=== PATIENT | female | born 1970 | race Caucasian/White ===

== ENCOUNTER → 2022-12-30 12:57 | Outpatient (BNVA) | payer OTHER, SELFPAY | PROVIDERS: PCP Internal Medicine; Visit Provider Nurse Practitioner Family | DX: Z13.89 Encounter for screening for other disorder (principal) ==

== ENCOUNTER 2023-04-06 09:42 | Outpatient (REF) | payer OTHER, SELFPAY ==
--- NOTE | ~2023-04-06 | XR_ITS ---
EXAMINATION: RIGHT HIP AND RIGHT KNEE CLINICAL INDICATIONS: Osteoarthritis. Pain. TECHNIQUE: Right knee 3 views. Right hip 2 views. FINDINGS: RIGHT HIP: The joint space is maintained normal. There are no bony erosive changes, loose bodies or enthesophytes. There is no fracture or dislocation. The soft tissues are normal. Surgical maria victoria are seen in the right pelvis with multiple phleboliths. The right iliac bone and right SI joint is normal. RIGHT KNEE: The tricompartment joint space is preserved. No visible acute fracture, dislocation or subluxation seen. The soft tissues are normal. XR/XR hip RT min 2V IMPRESSION: 1. Unremarkable right hip exam. 2. Unremarkable right knee exam.
--- NOTE | ~2023-04-06 | XR_ITS ---
EXAMINATION: RIGHT HIP AND RIGHT KNEE CLINICAL INDICATIONS: Osteoarthritis. Pain. TECHNIQUE: Right knee 3 views. Right hip 2 views. FINDINGS: RIGHT HIP: The joint space is maintained normal. There are no bony erosive changes, loose bodies or enthesophytes. There is no fracture or dislocation. The soft tissues are normal. Surgical maria victoria are seen in the right pelvis with multiple phleboliths. The right iliac bone and right SI joint is normal. RIGHT KNEE: The tricompartment joint space is preserved. No visible acute fracture, dislocation or subluxation seen. The soft tissues are normal. XR/XR knee RT 3V IMPRESSION: 1. Unremarkable right hip exam. 2. Unremarkable right knee exam.
== END 2023-04-06 09:43 | disposition home or self-care (01) ==
LOC: HO.XRAY 09:42
PROVIDERS: Visit Provider Psychiatry & Neurology Neurology
DX: M19.90 Unspecified osteoarthritis, unspecified site (principal)
CPT/HCPCS: 73502; 73562

== ENCOUNTER 2023-06-11 13:59 | Outpatient (AMB) | payer OTHER, SELFPAY ==
--- NOTE | 2023-06-11 14:00 | A.OFFVIS_ITS ---
Intake Intake Visit Reasons: 4 mnts f/u tele to #[phone] Intake Note: PT presents as a telehealth visit. Pt states she is having issues with her lower back, upcoming MRI and some other situations in regards to that. Pt states she was having problems with her right hip. Security Project Manager Required: No Allergies methylphenidate Allergy (Intermediate, Verified 06/11/23 14:02) Migraine escitalopram [From Lexapro] Allergy (Mild, Verified 06/11/23 14:02) Irritable benzonatate Allergy (Unknown, Verified 06/11/23 14:02) Unknown carisoprodol [Soma] Allergy (Unknown, Verified 06/11/23 14:02) Unknown celecoxib [Celebrex] Allergy (Unknown, Verified 06/11/23 14:02) Unknown codeine Allergy (Unknown, Verified 06/11/23 14:02) Unknown hydroxyzine Allergy (Unknown, Verified 06/11/23 14:02) Unknown lamotrigine [Lamictal] Allergy (Unknown, Verified 06/11/23 14:02) Unknown milnacipran [Savella] Allergy (Unknown, Verified 06/11/23 14:02) Unknown naproxen [Naprosyn] Allergy (Unknown, Verified 06/11/23 14:02) Unknown pregabalin Allergy (Unknown, Verified 06/11/23 14:02) Unknown rizatriptan [Maxalt] Allergy (Unknown, Verified 06/11/23 14:02) Unknown Sulfa (Sulfonamide Antibiotics) Allergy (Unknown, Verified 06/11/23 14:02) Unknown sulfacetamide Allergy (Unknown, Verified 06/11/23 14:02) Unknown tetracycline Allergy (Unknown, Verified 06/11/23 14:02) Unknown tramadol Allergy (Unknown, Verified 06/11/23 14:02) Unknown amitriptyline Allergy (Verified 06/11/23 14:02) Unknown environmental allergies Allergy (Verified 06/11/23 14:32) Unknown ibuprofen Allergy (Verified 06/11/23 14:02) Unknown latex Allergy (Verified 06/11/23 14:02) Unknown lavender (Lavandula angustifolia) Allergy (Verified 06/11/23 14:32) Unknown NSAIDS (Non-Steroidal Anti-Inflamma Allergy (Verified 06/11/23 14:02) Unknown Erythromycin Allergy (Unknown, Uncoded 06/11/23 14:02) Unknown Wellbutrin Allergy (Unknown, Uncoded 06/11/23 14:02) Unknown Medication List - Last Reconciled 06/11/23 by DOMINGUEZ Morales albuterol sulfate 90 mcg/actuation (ProAir RespiClick) 2 inhalations inhalation Q4-6H PRN atomoxetine (Strattera) 40 mg PO QAM atomoxetine mg PO cholecalciferol (vitamin D3) 250 mcg PO DAILY cyclobenzaprine 5 mg PO TID PRN 30 days fexofenadine (Amanda Allergy) 180 mg PO Q24H fluticasone propion-salmeterol 100-50 mcg/dose (Wixela Inhub) 1 inh inhalation BID glucosamine YIr-ocu-[id number] 400-200-333 mg 1 tab orally; give with meal/snack imiquimod 5% topical pantoprazole 40 mg PO DAILY rimegepant (Nurtec ODT) 75 mg PO Q OTHER DAY PRN 30 days trazodone 50 mg PO BEDTIME vortioxetine (Trintellix) 10 mg PO DAILY HPI HPI Comments History of Present Illness Details 52-yr-old female presents for f/u televisit. Attempted to do facetime visit x's 4 however connection feeled each time. Pt denies any significant interval medical changes. She reports her migraines are well-controlled on current regimen. She is having 2-3 headaches days per week, but rarely having a severe headache. Nurtec remains effective. Pt reports that the cyclobenzaprine as well as glucosamine-chondroitan has helped the low back pain., allows her to sleep better as the hip is not as bothersome. She does continue to have dyas were she has pain moving from the right callf up into the right hip and low back. She cannot describe the pain well- more achey. Some stabbing in the pain in the right hip when standing on it. She notes the RLE can feel weak at times- sometimes r/t pain but other times feels weak. The RLE can feel a bit numb She has a remote h/o bladder sling- can have episodes of RLQ intese pain- can alst 10 min- now happens q 2-3 yrs. She also notes that when she swallows very cold drinks- she has throat and stomach discomfort. Today she notes her mother has this as wel. She notes her father has recently been started on medications for AD/dementia- as her father has just started to have cognitive difficulties in his early 80s. She notes she has strong family h/o dementia/AD on mother side and fathers side. She also notes that many yrs ago she had an EEG which showed cortical irritability- was told not seizures but to avoid strobe lights. [facility] Medical History Arrhythmia Bruxism Cervicalgia Disorder of uterus Fibromyalgia GERD (gastroesophageal reflux disease) Migraine Myofascial pain syndrome Palpitations Plantar fasciitis Scoliosis Spasmodic torticollis Tendinitis TMJ dysfunction Vasovagal syncope Surgical History History of section History of uterine suspension procedure Hx of neck surgery Hx of tonsillectomy Family History Father Stroke HTN (hypertension) Migraine Dementia Mother HTN (hypertension) DM (diabetes mellitus) Spina bifida Neuropathy H/O fibromyalgia TMJ (dislocation of temporomandibular joint) Paternal Uncle Stroke Paternal Aunt Stroke Paternal Grandfather Stroke Social History (Updated 06/11/23 @ 14:06 by Regina Choi CMA) Household Members: Children Household Members Other:: adult Alcohol intake: current Alcohol intake frequency: does not drink Patient Tobacco Use Status: Former Tobacco user Quit Date: 2010 Use of substances other than those prescribed or required for medical reasons: No Current occupational status: disabled Review of Systems Const All systems reviewed & are unremarkable except as noted in HPI and below Physical Exam Const General: cooperative and no acute distress Orientation/consciousness: patient oriented x3 Resp Effort & Inspection: normal respiratory effort and able to speak in complete sentences Neuro General: patient oriented x3 Cognition (Neuro): normal cognition Psych Mental Status: mental status grossly normal Attitude: cooperative Assessment & Plan Assessment & Plan (1) Muscle spasm: Code(s): M62.838 - Other muscle spasm (2) Paresthesia: Code(s): R20.2 - Paresthesia of skin (3) Migraine: Code(s): G43.909 - Migraine, unspecified, not intractable, without status migrainosus Plan For muscle spasms- Continue Cyclobenzaprine. Review MRI report when available. Future considerations- PT, pain management, neurosx consult. For migraine prevention: Monitor headaches- if increases, will consider changing Nurtec to qod for prevention or trialing Emgality- her dtr does well on this.. Previous migraine trials: Verapamil, Amitriptyline, Imitrex- which have not helped. Topiramate- caused tingling. 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 Preventive migraine tx contraindications: BBs d/t asthma dx. ? For acute migraine treatment: Continue Nurtec ODT 75mg 1 tab qod-qd prn onset of migraine. Previous acute migraine trials- triptans- d/t causes severe bothersome paresthesias. ? For cognitive dysfunction- Continue Strattera 40mg qam- psych med provider Lelo Castro at the [facility]. Neuro-psych eval was declined by [facility]- stating pt can be dx'd w/ ADD/ADHD by psych and that documentation states she is doing better on Strattera. ? For sleep- Trazodone prn- again managed by Lelo Castro. Cyclobenzaprine may help with sleep as well. For fa,benji h/o AD/dementia: Pt may benefit from using [employer] site for support tips. Clinicaltrial.gov to research current trials. f/u in 4 months or sooner prn Medications: Refilled cyclobenzaprine 5 mg PO TID 30 days PRN 60 tabs 3RF muscle spasm rimegepant (Nurtec ODT) 75 mg PO Q OTHER DAY 30 days PRN 15 tabs 6RF migraine headache Telehealth Telehealth Location of provider rendering services: practice address Location of patient: address on file Patient Identification confirmed using: Name, : Yes Telehealth method: voice only Patient verbally consented to treatment: Yes Patient verbally consented to billing insurance company: Yes Patient informed of any privacy concerns related to visit: Yes Minutes spent on Phone/Video with Pt.: 30 Coding Level of Care Code Tele Est Pt Level 4 (81569) Diagnoses Muscle spasm M62.838 Paresthesia R20.2 Migraine G43.909
== END 2023-06-11 16:00 ==
PROVIDERS: PCP Internal Medicine; Visit Provider Nurse Practitioner Family
DX: M62.838 Other muscle spasm (principal); R20.2 Paresthesia of skin; G43.909 Migraine, unspecified, not intractable, without status migrainosus
CPT/HCPCS: 99214

== ENCOUNTER → 2023-06-11 13:59 | Outpatient (BNVA) | payer OTHER, SELFPAY | PROVIDERS: PCP Internal Medicine; Visit Provider Nurse Practitioner Family ==

== ENCOUNTER 2023-06-12 13:08 | Outpatient (REF) | payer OTHER, SELFPAY ==
[2023-06-12 14:12] LABS: MANUAL DIFF FLAG NO
[2023-06-12 15:58] LABS: Basophils Absolute Auto 0.1 X10*3/uL (0.0-0.2); Eosinophils Absolute Auto 0.1 X10*3/uL (0.0-0.4); Eosinophils Percent Auto 1.7 % (0-4); Hematocrit 41.8 % (37.0-47.0); Hemoglobin 13.7 g/dl (12.0-16.0); Imm Gran Abs Auto 0.04 X10*3/uL (0.00-0.03); Imm Gran Pct Auto 0.7 % (0.0-0.4); Lymphocytes Absolute Auto 1.7 X10*3/uL (1.2-4.9); Lymphocytes Percent Auto 29.3 % (20-40); Mean Corpuscular HGB Conc 32.8 g/dl (31.0-35.0); Mean Corpuscular Hemoglobin 28.7 pg (27.0-33.0); Mean Corpuscular Volume 87.4 fL (80.0-98.0); Mean Platelet Volume 9.6 fL (9.4-12.3); Monocytes Absolute Auto 0.5 X10*3/uL (0.1-1.2); Monocytes Percent Auto 8.8 % (2-11); Neutrophils Absolute Auto 3.5 x10*3/uL (2.0-8.3); Neutrophils Percent Auto 58.5 % (45-73); Platelet Count 369 X10*3/uL (160-400); Red Blood Count 4.78 X10*6/uL (4.20-5.50); Red Cell Distribution Width 12.6 % (11.0-16.0); White Blood Count 5.9 X10*3/uL (4.8-10.8)
[2023-06-15 20:18] LABS: Immunoglobulin E 7 kU/L (<OR=114)
== END 2023-06-12 13:09 | disposition home or self-care (01) ==
LOC: HO.LAB 13:08
PROVIDERS: PCP Internal Medicine; Visit Provider Nurse Practitioner Family
DX: J45.909 Unspecified asthma, uncomplicated (principal); R06.09 Other forms of dyspnea; Z87.891 Personal history of nicotine dependence; Z79.899 Other long term (current) drug therapy
CPT/HCPCS: 36415; 82785; 85025; 86003; 99202

== ENCOUNTER 2023-06-12 13:08 | Outpatient (AMB) | payer OTHER, SELFPAY ==
[2023-06-12 13:15] VITALS: BP 126/72; PULSE 89; O2SAT 97; BMI 31.7
--- NOTE | 2023-06-12 13:15 | MHC.OFFVIS ---
Intake Vital Signs 06/12/23 13:15 Height 5 ft 8 in Weight 208 lb 5.389 oz BMI 31.7 BP 126/72 Blood Pressure Location Lt brachial Position Sitting Pulse 89 Pulse Source Pulse Oximeter Pulse Oximetry (%) 97 Oxygen Delivery Method Room Air Intake Visit Reasons: Asthma Salesforce Administrator Required: No Extractions Technician: Extractions Technician offered & declined Accompanied by: Self / Same As Patient Allergies methylphenidate Allergy (Intermediate, Verified 06/12/23 13:22) Migraine escitalopram [From Lexapro] Allergy (Mild, Verified 06/12/23 13:22) Irritable benzonatate Allergy (Unknown, Verified 06/12/23 13:22) Unknown carisoprodol [Soma] Allergy (Unknown, Verified 06/12/23 13:22) Unknown celecoxib [Celebrex] Allergy (Unknown, Verified 06/12/23 13:22) Unknown codeine Allergy (Unknown, Verified 06/12/23 13:22) Unknown hydroxyzine Allergy (Unknown, Verified 06/12/23 13:22) Unknown lamotrigine [Lamictal] Allergy (Unknown, Verified 06/12/23 13:22) Unknown milnacipran [Savella] Allergy (Unknown, Verified 06/12/23 13:22) Unknown naproxen [Naprosyn] Allergy (Unknown, Verified 06/12/23 13:22) Unknown pregabalin Allergy (Unknown, Verified 06/12/23 13:22) Unknown rizatriptan [Maxalt] Allergy (Unknown, Verified 06/12/23 13:22) Unknown Sulfa (Sulfonamide Antibiotics) Allergy (Unknown, Verified 06/12/23 13:22) Unknown sulfacetamide Allergy (Unknown, Verified 06/12/23 13:22) Unknown tetracycline Allergy (Unknown, Verified 06/12/23 13:22) Unknown tramadol Allergy (Unknown, Verified 06/12/23 13:22) Unknown amitriptyline Allergy (Verified 06/12/23 13:22) Unknown environmental allergies Allergy (Verified 06/12/23 13:22) Unknown ibuprofen Allergy (Verified 06/12/23 13:22) Unknown latex Allergy (Verified 06/12/23 13:22) Unknown lavender (Lavandula angustifolia) Allergy (Verified 06/12/23 13:22) Unknown NSAIDS (Non-Steroidal Anti-Inflamma Allergy (Verified 06/12/23 13:22) Unknown adhesives Allergy (Intermediate, Uncoded 06/12/23 13:22) itchy rash Erythromycin Allergy (Unknown, Uncoded 06/12/23 13:22) Unknown Wellbutrin Allergy (Unknown, Uncoded 06/12/23 13:22) Unknown Medication List - Last Reconciled 06/12/23 by Brigida Schaffer LPN albuterol sulfate 90 mcg/actuation (ProAir RespiClick) 2 inhalations inhalation Q4-6H PRN atomoxetine (Strattera) 40 mg PO QAM atomoxetine mg PO cholecalciferol (vitamin D3) 250 mcg PO DAILY cyclobenzaprine 5 mg PO TID PRN 30 days fexofenadine (Amanda Allergy) 180 mg PO Q24H fluticasone propion-salmeterol 100-50 mcg/dose (Wixela Inhub) 1 inh inhalation BID glucosamine YFg-qkv-ciuimwjqux 400-200-333 mg 1 tab orally; give with meal/snack imiquimod 5% topical pantoprazole 40 mg PO DAILY rimegepant (Nurtec ODT) 75 mg PO Q OTHER DAY PRN 30 days trazodone 50 mg PO BEDTIME vortioxetine (Trintellix) 10 mg PO DAILY HPI Asthma HPI Details Cinthya is a pleasant 52 year old female, former smoker with 20 pack year history, quit 13 years ago with underlying history of asthma. She reports dyspnea with moderate exertion and chest tightness, with environmental allergens as triggers. She denies any wheezing or cough. She has been on Wixela 100/50 for quite some time and notes moderate control of symptoms. She reports using her albuterol up to 3 times per day. She has trialed advair diskus and HFA as well as Flovent with supoptimal relief. She notes her mother and children, all have asthma, otherwise no other lung conditions. She denies any hospitalizations or intubations related to asthma. She does have cats and 2 doves. She reports having birds for over 20 years. [facility] Medical History Arrhythmia Bruxism Cervicalgia Disorder of uterus Fibromyalgia GERD (gastroesophageal reflux disease) Migraine Myofascial pain syndrome Palpitations Plantar fasciitis Scoliosis Spasmodic torticollis Tendinitis TMJ dysfunction Vasovagal syncope Surgical History History of section History of uterine suspension procedure Hx of neck surgery Hx of tonsillectomy Family History Father Stroke HTN (hypertension) Migraine Dementia Mother HTN (hypertension) DM (diabetes mellitus) Spina bifida Neuropathy H/O fibromyalgia TMJ (dislocation of temporomandibular joint) Paternal Uncle Stroke Paternal Aunt Stroke Paternal Grandfather Stroke Social History (Updated 06/12/23 @ 13:26 by Brigida Schaffer LPN) Household Members: Children Household Members Other:: adult Alcohol intake: current Alcohol intake frequency: does not drink Patient Tobacco Use Status: Former Tobacco user Quit Date: 2010 Tobacco use type: Cigarette Cigarette Packs Per Day: 1 Cigarettes Per Day: 20 Years Smoked: approx 20 Current occupational status: disabled Review of Systems Const Denies chills, Denies excessive sweating, Denies fever(s), Denies headache(s) and Denies night sweats Eyes Denies dry eyes, Denies irritation and Denies itchy eyes ENT Reports Normal hearing present, Denies headache(s), Denies nasal congestion, Denies nasal discharge, Denies post nasal drip and Denies sore throat Card Denies chest pain, Denies chest pain at rest, Denies chest pain with activity, Denies claudication, Denies leg edema, Denies dyspnea, Denies orthopnea and Denies paroxysmal nocturnal dyspnea Resp Denies chest congestion, Denies cough, Denies excessive phlegm production, Denies pain on inspiration, Denies pain with cough, Denies dyspnea, Denies stridor and Denies wheezing Musc Denies myalgias Neuro Reports Normal hearing present and Denies headache(s) Endo Denies excessive sweating Tushar/Lymph Denies lymphadenopathy Aller/Immun Denies itchy eyes, Denies seasonal rhinorrhea and Denies wheezing Physical Exam Vital Signs: Last Vital Signs Pulse 89 06/12/23 13:15 BP 126/72 06/12/23 13:15 Pulse Ox 97 06/12/23 13:15 Oxygen Delivery Method Room Air 06/12/23 13:15 BMI result Body Mass Index 31.7 Const General: cooperative, healthy appearing, comfortable, no acute distress, well developed and alert Nutritional Appearance: obese Orientation/consciousness: patient oriented x3 Limitations: no limitations HEENT Head: Yes normal to inspection, Yes normocephalic and Yes atraumatic Ears: hearing grossly normal bilaterally and external ears normal Eyes General: appearance normal, both eyes and all related structures Eyelids: Yes eyelids normal Sclerae: sclerae normal EOM: EOMs intact bilaterally Neck Neck: Yes normal visual inspection and Yes no lymphadenopathy Lymphatic: no lymphadenopathy noted Chest Chest palpation & inspection: normal inspection of the chest Resp Effort & Inspection: normal respiratory effort, able to speak in complete sentences, no audible wheezes, no cough, no stridor, not tachypneic, no tripod positioning and no use of accessory muscles Auscultation: clear to auscultation bilaterally Cardio Jugular venous distension: no JVD Rate: regular rate Rhythm: regular rhythm Skin Other: warm, dry General skin exam: no rashes or lesions noted Neuro General: patient oriented x3 Cranial nerves: Yes Normal hearing present Cognition (Neuro): normal cognition Gait exam (Neuro): Normal gait present Extrem General: Yes normal to inspection, Yes capillary refill normal, Yes no clubbing, cyanosis or edema and Yes no pedal edema Psych Appearance: grossly normal and well kempt Speech and movement: Normal speech and movement present and Clear speech present Affect: normal affect Attitude: cooperative Thought process: Normal thought process present Thought content: Normal thought content present Insight: Good insight present (Psych) Judgement: Good judgement present (Psych) Assessment & Plan Assessment & Plan (1) Asthma: Code(s): J45.909 - Unspecified asthma, uncomplicated (2) Environmental and seasonal allergies: Code(s): J30.89 - Other allergic rhinitis (3) Personal history of tobacco use: Code(s): Z87.891 - Personal history of nicotine dependence Plan Cinthya was previously well controlled on Wixela but has had to use her albuterol more frequently. Will increase dose of Wixela, as she wanted to stay on this medication. Will send for PFT to [facility]. Given her smoking history and bird exposure, will send for chest CT and lab work. All questions were answered and patient is in agreement of plan. Will follow up after to review results and response to increased dose. Orders: Orders Rast Allergen Today J30.89 - Other allergic rhinitis Complete Blood Count Auto Diff Today J30.89 - Other allergic rhinitis, J45.909 - Unspecified asthma, uncomplicated Immunoglobulin E Today J30.89 - Other allergic rhinitis PFT pulmonary function test Today J45.909 - Unspecified asthma, uncomplicated CT chest wo IV con Today R06.09 - Other forms of dyspnea, Z87.891 - Personal history of nicotine dependence Medications: New fluticasone propion-salmeterol 250-50 mcg/dose (Wixela Inhub) 1 inh inhalation Q12H 60 ea 4RF Coding Level of Care Code New Pt Level 4 (19826) Diagnoses Asthma J45.909 Environmental and seasonal allergies J30.89 Personal history of tobacco use Z87.891
== END 2023-06-12 13:54 | disposition home or self-care (01) ==
PROVIDERS: PCP Internal Medicine; Referring Provider Internal Medicine; Visit Provider Nurse Practitioner Family
DX: J45.909 Unspecified asthma, uncomplicated (principal); Z87.891 Personal history of nicotine dependence
CPT/HCPCS: 99204

== ENCOUNTER 2023-06-30 13:16 | Outpatient (REF) | payer OTHER, SELFPAY ==
--- NOTE | 2023-06-30 14:06 | PFT_ITS ---
FLOWS: 1. FEV1 105% of predicted at 3.30 L. 2. FVC 101% of predicted at 4.01 L. 3. FEV1 to FVC ratio of 0.82. 4. No bronchodilator response in small to medium airways. LUNG VOLUMES: 1. Total lung capacity 100% of predicted at 4.66 L. 2. Residual volume 80% of predicted at 1.66 L. 3. Slow vital capacity 111% of predicted at 4.00 L. 4. Expiratory reserve volume 34% of predicted at 0.40 L. 5. Diffusion capacity is mildly reduced. IMPRESSION: No obstructive or restrictive ventilatory defect. No bronchodilator response except in small to medium airways. Decreased expiratory reserve volume suggests extrathoracic restriction, likely secondary to abdominal obesity. Decreased diffusion capacity suggests emphysema. Crescencio Tamez MD AP/MODL / [id number] MTDD
== END 2023-06-30 13:17 | disposition home or self-care (01) ==
LOC: HO.RESP 13:16
PROVIDERS: PCP Internal Medicine; Visit Provider Nurse Practitioner Family
DX: J45.909 Unspecified asthma, uncomplicated (principal)
CPT/HCPCS: 94010; 94727; 94729

== ENCOUNTER → 2023-06-30 14:06 | Outpatient (BNV) | payer OTHER, SELFPAY | PROVIDERS: PCP Internal Medicine; Visit Provider Internal Medicine Pulmonary Disease | DX: J45.909 Unspecified asthma, uncomplicated (principal) | CPT/HCPCS: 94060; 94727; 94729 ==

== ENCOUNTER 2023-07-07 14:18 | Outpatient (REF) | payer OTHER, SELFPAY ==
--- NOTE | ~2023-07-07 | MR_ITS ---
EXAMINATION: MR LUMBAR SPINE WITHOUT CONTRAST CLINICAL INFORMATION: 52-year-old with right L2-L3 radiculopathy. COMPARISON: None available. TECHNIQUE: MRI of the lumbar spine was obtained using routine sequences without contrast. FINDINGS: CORONAL ALIGNMENT: Mild upper lumbar dextrocurvature noted, slightly convex to the right at L1-L2. SAGITTAL ALIGNMENT: Normal. LUMBOSACRAL JUNCTION: Normal. There are 5 [id number] lumbar-type vertebral bodies. VERTEBRAL BODIES: Very slight chronic loss of height of the anterior portion of the superior endplate of T12 is noted. Otherwise vertebral body heights are well maintained. DISC SPACES AND ENDPLATES: Severe disc space height loss at L4-L5 and L5-S1 with disc desiccation, Schmorl's nodes and spondylosis at these levels and probable intradiscal vacuum disc phenomenon. Mild disc volume loss with disc desiccation at L2-L3 and minimal disc desiccation at L3-L4 and L1-L2 without significant disc space height loss or spondylosis. Mild disc space height loss, with disc desiccation and a Schmorl's node along the superior endplate of T12 with minor anterior marginal endplate spurring at T11-T12. SPINAL CANAL: No abnormal developmental findings. BONE MARROW: Mild type I degenerative marrow signal changes seen along the endplates asymmetric to the right at L4-L5 with type II marrow signal changes along the endplates at L4-L5 and L5-S1. A 1 cm benign vertebral hemangioma in the T12 vertebral body. CONUS MEDULLARIS: Terminates at L1-L2. Morphology and signal is normal. INTRADURAL NERVE ROOTS: Within normal limits. L5-S1: Posterolateral disc osteophyte complex noted left more than right with no significant spinal canal stenosis. Mild facet arthropathy noted right more than left. No significant neural foraminal stenosis. L4-L5: Disc osteophyte complex asymmetric to the right encroaching on the inferior right neural foramen and slightly flattening the dural sac asymmetric to the right with minor facet arthropathy bilaterally without significant central spinal canal stenosis. There is zeay-sp-sqznkgea narrowing of the right subarticular recess slightly encroaching on the traversing right L5 nerve root. Mild foraminal narrowing noted on the right without exiting neural impingement. L3-L4: Shallow broad-based central disc protrusion, with slight indentation of the ventral thecal sac with mild ligamentum flavum thickening and mild facet arthropathy bilaterally without significant canal or neural foraminal stenosis. L2-L3: Right-sided foraminal/extraforaminal disc protrusion with annular fissuring noted without neural impingement. Tiny left paramedian disc protrusion. Minor facet arthropathy on the right without significant canal or neural foraminal stenosis. L1-L2: Normal annular contour. No facet arthrosis, canal or neural foraminal stenosis. PARAVERTEBRAL AND INCLUDED EXTRASPINAL SOFT TISSUES: The paravertebral soft tissues appear grossly unremarkable. The visualized abdominal aorta is normal in caliber. There is a partially imaged 1 cm cystic structure arising from the lateral cortex of the lower pole of the left kidney which cannot be confirmed as simple-appearing on this examination. Correlate with renal ultrasound to exclude a mass. MR/MR lumbar spine wo con IMPRESSION: 1. Mild upper lumbar dextroscoliosis, slightly convex to the right at L1-L2. 2. Multilevel DDD and spondylosis, most apparent at L4-L5 and L5-S1 with disc osteophyte complex asymmetric to the right at L4-L5 with [id number]-gy-htrzdcmr narrowing of the right subarticular zone at this level slightly encroaching on the traversing right L5 nerve root. Small central disc protrusion at L3-L4 and a small right lateral extraforaminal/foraminal disc protrusion at L2-L3 without neural impingement. 3. Mild degrees of multilevel bilateral facet arthropathy without significant neural foraminal stenosis. 4. Slight chronic loss of height of the superior endplate of T12. 5. A 1 cm cystic structure arising from the lateral cortex of the lower pole of the left kidney which cannot be confirmed as simple-appearing on this examination. Recommend correlation with renal ultrasound to exclude a mass.
== END 2023-07-07 14:19 | disposition home or self-care (01) ==
LOC: HO.MRI 14:18
PROVIDERS: PCP Internal Medicine; Visit Provider Psychiatry & Neurology Neurology
DX: M54.16 Radiculopathy, lumbar region (principal)
CPT/HCPCS: 72148

== ENCOUNTER 2023-07-14 12:37 | Outpatient (AMB) | payer OTHER, SELFPAY ==
[2023-07-14 14:08] VITALS: BP 126/70; PULSE 86; O2SAT 99; BMI 31.5
--- NOTE | 2023-07-14 14:08 | MHC.OFFVIS ---
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 Accompanied by: Self / Same As Patient Allergies methylphenidate Allergy (Intermediate, Verified 07/14/23 14:13) Migraine escitalopram [From Lexapro] Allergy (Mild, Verified 07/14/23 14:13) Irritable benzonatate Allergy (Unknown, Verified 07/14/23 14:13) Unknown carisoprodol [Soma] Allergy (Unknown, Verified 07/14/23 14:13) Unknown celecoxib [Celebrex] Allergy (Unknown, Verified 07/14/23 14:13) Unknown codeine Allergy (Unknown, Verified 07/14/23 14:13) Unknown hydroxyzine Allergy (Unknown, Verified 07/14/23 14:13) Unknown lamotrigine [Lamictal] Allergy (Unknown, Verified 07/14/23 14:13) Unknown milnacipran [Savella] Allergy (Unknown, Verified 07/14/23 14:13) Unknown naproxen [Naprosyn] Allergy (Unknown, Verified 07/14/23 14:13) Unknown pregabalin Allergy (Unknown, Verified 07/14/23 14:13) Unknown rizatriptan [Maxalt] Allergy (Unknown, Verified 07/14/23 14:13) Unknown Sulfa (Sulfonamide Antibiotics) Allergy (Unknown, Verified 07/14/23 14:13) Unknown sulfacetamide Allergy (Unknown, Verified 07/14/23 14:13) Unknown tetracycline Allergy (Unknown, Verified 07/14/23 14:13) Unknown tramadol Allergy (Unknown, Verified 07/14/23 14:13) Unknown amitriptyline Allergy (Verified 07/14/23 14:13) Unknown environmental allergies Allergy (Verified 07/14/23 14:13) Unknown ibuprofen Allergy (Verified 07/14/23 14:13) Unknown latex Allergy (Verified 07/14/23 14:13) Unknown lavender (Lavandula angustifolia) Allergy (Verified 07/14/23 14:13) Unknown NSAIDS (Non-Steroidal Anti-Inflamma Allergy (Verified 07/14/23 14:13) Unknown adhesives Allergy (Intermediate, Uncoded 07/14/23 14:13) itchy rash Erythromycin Allergy (Unknown, Uncoded 07/14/23 14:13) Unknown Wellbutrin Allergy (Unknown, Uncoded 07/14/23 14:13) Unknown Medication List - Last Reconciled 07/14/23 by Brigida Schaffer LPN albuterol sulfate 90 mcg/actuation (ProAir RespiClick) 2 inhalations inhalation Q4-6H PRN atomoxetine (Strattera) 40 mg PO QAM atomoxetine mg PO cholecalciferol (vitamin D3) 250 mcg PO DAILY cyclobenzaprine 5 mg PO TID PRN 30 days fexofenadine (Amanda Allergy) 180 mg PO Q24H fluticasone propion-salmeterol 250-50 mcg/dose (Wixela Inhub) 1 inh inhalation Q12H glucosamine [id number] 400-200-333 mg 1 tab orally; give with meal/snack imiquimod 5% topical pantoprazole 40 mg PO DAILY rimegepant (Nurtec ODT) 75 mg PO Q OTHER DAY PRN 30 days trazodone 50 mg PO BEDTIME vortioxetine (Trintellix) 10 mg PO DAILY HPI Asthma HPI Details Cinthya is a pleasant 52 year old female, former smoker with 20 pack year history, quit 13 years ago with underlying history of asthma. She reports dyspnea with moderate exertion and chest tightness, with environmental allergens as triggers. She denies any wheezing or cough. She has been on Wixela 100/50 with suboptimal control. She was switched to Wixela 250 with some improvement but has only been using once per day. Today she is here to review RAST and PFT results. [facility] Medical History Arrhythmia Bruxism Cervicalgia Disorder of uterus Fibromyalgia GERD (gastroesophageal reflux disease) Migraine Myofascial pain syndrome Palpitations Plantar fasciitis Scoliosis Spasmodic torticollis Tendinitis TMJ dysfunction Vasovagal syncope Surgical History History of section History of uterine suspension procedure Hx of neck surgery Hx of tonsillectomy Family History Father Stroke HTN (hypertension) Migraine Dementia Mother HTN (hypertension) DM (diabetes mellitus) Spina bifida Neuropathy H/O fibromyalgia TMJ (dislocation of temporomandibular joint) Paternal Uncle Stroke Paternal Aunt Stroke Paternal Grandfather Stroke Social History (Updated 07/14/23 @ 14:15 by Brigida Schaffer LPN) Household Members: Children Household Members Other:: adult Alcohol intake: current Alcohol intake frequency: does not drink Patient Tobacco Use Status: Former Tobacco user Quit Date: 2010 Tobacco use type: Cigarette Cigarette Packs Per Day: 1 Cigarettes Per Day: 20 Years Smoked: approx 20 Current occupational status: disabled Review of Systems Const Denies chills, Denies excessive sweating, Denies fever(s), Denies headache(s) and Denies night sweats Eyes Denies dry eyes, Denies irritation and Denies itchy eyes ENT Reports Normal hearing present, Denies headache(s), Denies nasal congestion, Denies nasal discharge, Denies post nasal drip and Denies sore throat Card Denies chest pain, Denies chest pain at rest, Denies chest pain with activity, Denies claudication, Denies leg edema, Denies dyspnea, Denies orthopnea and Denies paroxysmal nocturnal dyspnea Resp Denies chest congestion, Denies cough, Denies excessive phlegm production, Denies pain on inspiration, Denies pain with cough, Denies dyspnea, Denies stridor and Denies wheezing Musc Denies myalgias Neuro Reports Normal hearing present and Denies headache(s) Endo Denies excessive sweating Tushar/Lymph Denies lymphadenopathy Aller/Immun Denies itchy eyes, Denies seasonal rhinorrhea and Denies wheezing Physical Exam Vital Signs: Last Vital Signs Pulse 86 07/14/23 14:08 BP 126/70 07/14/23 14:08 Pulse Ox 99 07/14/23 14:08 Oxygen Delivery Method Room Air 07/14/23 14:08 BMI result Body Mass Index 31.5 Const General: cooperative, healthy appearing, comfortable, no acute distress, well developed and alert Nutritional Appearance: obese Orientation/consciousness: patient oriented x3 Limitations: no limitations HEENT Head: Yes normal to inspection, Yes normocephalic and Yes atraumatic Ears: hearing grossly normal bilaterally and external ears normal Eyes General: appearance normal, both eyes and all related structures Eyelids: Yes eyelids normal Sclerae: sclerae normal EOM: EOMs intact bilaterally Neck Neck: Yes normal visual inspection and Yes no lymphadenopathy Lymphatic: no lymphadenopathy noted Chest Chest palpation & inspection: normal inspection of the chest Resp Effort & Inspection: normal respiratory effort, able to speak in complete sentences, no audible wheezes, no cough, no stridor, not tachypneic, no tripod positioning and no use of accessory muscles Auscultation: clear to auscultation bilaterally Cardio Jugular venous distension: no JVD Rate: regular rate Rhythm: regular rhythm Skin Other: warm, dry General skin exam: no rashes or lesions noted Neuro General: patient oriented x3 Cranial nerves: Yes Normal hearing present Cognition (Neuro): normal cognition Gait exam (Neuro): Normal gait present Extrem General: Yes normal to inspection, Yes capillary refill normal, Yes no clubbing, cyanosis or edema and Yes no pedal edema Psych Appearance: grossly normal and well kempt Speech and movement: Normal speech and movement present and Clear speech present Affect: normal affect Attitude: cooperative Thought process: Normal thought process present Thought content: Normal thought content present Insight: Good insight present (Psych) Judgement: Good judgement present (Psych) Results Reviewed Results Reviewed: Assessment & Plan Assessment & Plan (1) Asthma: Code(s): J45.909 - Unspecified asthma, uncomplicated (2) Environmental and seasonal allergies: Code(s): J30.89 - Other allergic rhinitis (3) Personal history of tobacco use: Code(s): Z87.891 - Personal history of nicotine dependence Plan Advised Cinthya to use Wixela BID and will reassess symptoms at next visit. Reviewed RAST testing which was negative, despite allergic symptoms and prior positive skin prick testing. She has an appointment scheduled with an sprue cutting press operator for further evaluation. PFT results reviewed which did not reveal an obstructive ventilatory defect. There was some bronchodilator response in small to medium airways and decreased expiratory reserve volume suggesting extrathoracic restriction, likely secondary to abdominal obesity. There was also a decrease in diffusion capacity suggestive of emphysema. At the last visit, she was sent for a chest CT which is scheduled later this week. All questions were answered and patient is in agreement of plan. Will follow up after to review results and response to increased dose. Coding Level of Care Code Est Pt Level 4 (37396) Diagnoses Asthma J45.909 Environmental and seasonal allergies J30.89 Personal history of tobacco use Z87.891
== END 2023-07-14 14:46 | disposition home or self-care (01) ==
PROVIDERS: PCP Internal Medicine; Visit Provider Nurse Practitioner Family
DX: J45.909 Unspecified asthma, uncomplicated (principal); Z87.891 Personal history of nicotine dependence
CPT/HCPCS: 99214

== ENCOUNTER → 2023-07-14 12:37 | Outpatient (BNVA) | payer OTHER, SELFPAY | PROVIDERS: PCP Internal Medicine; Visit Provider Nurse Practitioner Family | DX: J45.909 Unspecified asthma, uncomplicated (principal); J30.89 Other allergic rhinitis; Z87.891 Personal history of nicotine dependence | CPT/HCPCS: 99212 ==

== ENCOUNTER 2023-07-16 09:42 | Outpatient (REF) | payer OTHER, SELFPAY ==
--- NOTE | ~2023-07-16 | CT_ITS ---
EXAMINATION: CT CHEST WITHOUT CONTRAST CLINICAL INFORMATION: Dyspnea on exertion. Nicotine dependence COMPARISON: None available. TECHNIQUE: Multidetector volumetric CT imaging of the chest was done. Axial MIP volume rendering provided. Sagittal and coronal reformatted images were obtained. This CT examination was performed using dose optimization techniques as appropriate, variously including the following: *Automated exposure control *Adjustment of mA and/or kV according to patient size (this includes techniques or standardized protocols for targeted exams where dose is matched to indication/reason for exam; i.e. 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 Scattered mild atelectasis. Tiny left lower lobe granuloma, 5:452. No suspicious lung nodules. MEDIASTINUM: Unremarkable thyroid. No pathologic lymphadenopathy. Heart size within normal limits. No pericardial effusion. Nonaneurysmal aorta. Nonenlarged pulmonary arteries. CORONARY ARTERY CALCIFICATION: None visualized on this study. PLEURA: There is no pleural effusion. No pleural mass or thickening. AXILLA: No lymphadenopathy. UPPER ABDOMEN: Diffuse hypoattenuation to the hepatic parenchyma with fatty sparing about the gallbladder fossa. OSSEOUS STRUCTURES: No suspicious osseous lesions. CT/CT chest wo IV con IMPRESSION: No suspicious lung lesions. Hepatic steatosis. Fleischner guidelines were followed.
== END 2023-07-16 09:43 | disposition home or self-care (01) ==
LOC: HO.CT 09:42
PROVIDERS: PCP Internal Medicine; Visit Provider Nurse Practitioner Family
DX: R06.09 Other forms of dyspnea (principal); Z87.891 Personal history of nicotine dependence
CPT/HCPCS: 71250

== ENCOUNTER 2023-08-17 13:35 | Outpatient (AMB) | payer OTHER, SELFPAY ==
[2023-08-17 13:50] VITALS: BP 124/70; PULSE 84; O2SAT 96; BMI 31.8
--- NOTE | 2023-08-17 13:50 | MHC.OFFVIS ---
Intake Vital Signs 08/17/23 13:50 Height 5 ft 8 in Weight 209 lb BMI 31.8 BP 124/70 Blood Pressure Location Rt brachial Position Sitting Pulse 84 Pulse Source Pulse Oximeter Pulse Oximetry (%) 96 Oxygen Delivery Method Room Air Intake Visit Reasons: Asthma Audio Director Required: No Perinatal Technician: Perinatal Technician offered & declined Accompanied by: Daughter Allergies methylphenidate Allergy (Intermediate, Verified 08/17/23 13:54) Migraine escitalopram [From Lexapro] Allergy (Mild, Verified 08/17/23 13:54) Irritable benzonatate Allergy (Unknown, Verified 08/17/23 13:54) Unknown carisoprodol [Soma] Allergy (Unknown, Verified 08/17/23 13:54) Unknown celecoxib [Celebrex] Allergy (Unknown, Verified 08/17/23 13:54) Unknown codeine Allergy (Unknown, Verified 08/17/23 13:54) Unknown hydroxyzine Allergy (Unknown, Verified 08/17/23 13:54) Unknown lamotrigine [Lamictal] Allergy (Unknown, Verified 08/17/23 13:54) Unknown milnacipran [Savella] Allergy (Unknown, Verified 08/17/23 13:54) Unknown naproxen [Naprosyn] Allergy (Unknown, Verified 08/17/23 13:54) Unknown pregabalin Allergy (Unknown, Verified 08/17/23 13:54) Unknown rizatriptan [Maxalt] Allergy (Unknown, Verified 08/17/23 13:54) Unknown Sulfa (Sulfonamide Antibiotics) Allergy (Unknown, Verified 08/17/23 13:54) Unknown sulfacetamide Allergy (Unknown, Verified 08/17/23 13:54) Unknown tetracycline Allergy (Unknown, Verified 08/17/23 13:54) Unknown tramadol Allergy (Unknown, Verified 08/17/23 13:54) Unknown amitriptyline Allergy (Verified 08/17/23 13:54) Unknown environmental allergies Allergy (Verified 08/17/23 13:54) Unknown ibuprofen Allergy (Verified 08/17/23 13:54) Unknown latex Allergy (Verified 08/17/23 13:54) Unknown lavender (Lavandula angustifolia) Allergy (Verified 08/17/23 13:54) Unknown NSAIDS (Non-Steroidal Anti-Inflamma Allergy (Verified 08/17/23 13:54) Unknown adhesives Allergy (Intermediate, Uncoded 08/17/23 13:54) itchy rash Erythromycin Allergy (Unknown, Uncoded 08/17/23 13:54) Unknown Wellbutrin Allergy (Unknown, Uncoded 08/17/23 13:54) Unknown Medication List - Last Reconciled 08/17/23 by Brigida Schaffer LPN albuterol sulfate 90 mcg/actuation (ProAir RespiClick) 2 inhalations inhalation Q4-6H PRN atomoxetine (Strattera) 40 mg PO QAM atomoxetine mg PO cholecalciferol (vitamin D3) 250 mcg PO DAILY cyclobenzaprine 5 mg PO TID PRN 30 days fexofenadine (Amanda Allergy) 180 mg PO Q24H fluticasone propion-salmeterol 250-50 mcg/dose (Wixela Inhub) 1 inh inhalation Q12H glucosamine [id number] 400-200-333 mg 1 tab orally; give with meal/snack imiquimod 5% topical ipratropium-albuterol 0.5 mg-3 mg(2.5 mg base)/3 mL 3 mL inhalation Q4-6H PRN 30 days pantoprazole 40 mg PO DAILY rimegepant (Nurtec ODT) 75 mg PO Q OTHER DAY PRN 30 days trazodone 50 mg PO BEDTIME vortioxetine (Trintellix) 10 mg PO DAILY HPI Asthma HPI Details Cinthya is a pleasant 52 year old female, former smoker with 20 pack year history, quit 13 years ago with underlying history of asthma. She reports dyspnea with moderate exertion, chest tightness, intermittent cough with environmental allergens as triggers. She was switched to Wixela 250 with some improvement but has only been using once per day. Since the last visit, she increased Wixela to BID and uses duoneb PRN with significant symptomatic improvement.Today she presents to review chest CT. [facility] Medical History Arrhythmia Bruxism Cervicalgia Disorder of uterus Fibromyalgia GERD (gastroesophageal reflux disease) Migraine Myofascial pain syndrome Palpitations Plantar fasciitis Scoliosis Spasmodic torticollis Tendinitis TMJ dysfunction Vasovagal syncope Surgical History History of section History of uterine suspension procedure Hx of neck surgery Hx of tonsillectomy Family History Father Stroke HTN (hypertension) Migraine Dementia Mother HTN (hypertension) DM (diabetes mellitus) Spina bifida Neuropathy H/O fibromyalgia TMJ (dislocation of temporomandibular joint) Paternal Uncle Stroke Paternal Aunt Stroke Paternal Grandfather Stroke Social History (Updated 07/14/23 @ 14:15 by Brigida Schaffer LPN) Household Members: Children Household Members Other:: adult Alcohol intake: current Alcohol intake frequency: does not drink Patient Tobacco Use Status: Former Tobacco user Quit Date: 2010 Tobacco use type: Cigarette Cigarette Packs Per Day: 1 Cigarettes Per Day: 20 Years Smoked: approx 20 Current occupational status: disabled Review of Systems Const Denies chills, Denies excessive sweating, Denies fever(s), Denies headache(s) and Denies night sweats Eyes Denies dry eyes, Denies irritation and Denies itchy eyes ENT Reports Normal hearing present, Denies headache(s), Denies nasal congestion, Denies nasal discharge, Denies post nasal drip and Denies sore throat Card Denies chest pain, Denies chest pain at rest, Denies chest pain with activity, Denies claudication, Denies leg edema, Denies dyspnea, Denies orthopnea and Denies paroxysmal nocturnal dyspnea Resp Denies chest congestion, Denies cough, Denies excessive phlegm production, Denies pain on inspiration, Denies pain with cough, Denies dyspnea, Denies stridor and Denies wheezing Musc Denies myalgias Neuro Reports Normal hearing present and Denies headache(s) Endo Denies excessive sweating Tushar/Lymph Denies lymphadenopathy Aller/Immun Denies itchy eyes, Denies seasonal rhinorrhea and Denies wheezing Physical Exam Vital Signs: Last Vital Signs Pulse 84 08/17/23 13:50 BP 124/70 08/17/23 13:50 Pulse Ox 96 08/17/23 13:50 Oxygen Delivery Method Room Air 08/17/23 13:50 BMI result Body Mass Index 31.8 Const General: cooperative, healthy appearing, comfortable, no acute distress, well developed and alert Nutritional Appearance: obese Orientation/consciousness: patient oriented x3 Limitations: no limitations HEENT Head: Yes normal to inspection, Yes normocephalic and Yes atraumatic Ears: hearing grossly normal bilaterally and external ears normal Eyes General: appearance normal, both eyes and all related structures Eyelids: Yes eyelids normal Sclerae: sclerae normal EOM: EOMs intact bilaterally Neck Neck: Yes normal visual inspection and Yes no lymphadenopathy Lymphatic: no lymphadenopathy noted Chest Chest palpation & inspection: normal inspection of the chest Resp Effort & Inspection: normal respiratory effort, able to speak in complete sentences, no audible wheezes, no cough, no stridor, not tachypneic, no tripod positioning and no use of accessory muscles Auscultation: clear to auscultation bilaterally Cardio Jugular venous distension: no JVD Rate: regular rate Rhythm: regular rhythm Skin Other: warm, dry General skin exam: no rashes or lesions noted Neuro General: patient oriented x3 Cranial nerves: Yes Normal hearing present Cognition (Neuro): normal cognition Gait exam (Neuro): Normal gait present Extrem General: Yes normal to inspection, Yes capillary refill normal, Yes no clubbing, cyanosis or edema and Yes no pedal edema Psych Appearance: grossly normal and well kempt Speech and movement: Normal speech and movement present and Clear speech present Affect: normal affect Attitude: cooperative Thought process: Normal thought process present Thought content: Normal thought content present Insight: Good insight present (Psych) Judgement: Good judgement present (Psych) Results Reviewed Results Reviewed: [address] [address] [address] Scan Report Signed Patient: Cinthya Silvestre MR#: [id number] : 1970 Acct:[id number] Age/Sex: 52 / F ADM Date: 07/16/23 Loc: HO.CT Attending Dr: Elizabeth Calderon NP Ordering Physician: Elizabeth Calderon NP Date of Service: 07/16/23 Procedure(s): CT chest wo IV con Accession Number(s): [id number] cc: Elizabeth Calderon NP~ EXAMINATION: CT CHEST WITHOUT CONTRAST CLINICAL INFORMATION: Dyspnea on exertion. Nicotine dependence COMPARISON: None available. TECHNIQUE: Multidetector volumetric CT imaging of the chest was done. Axial MIP volume rendering provided. Sagittal and coronal reformatted images were obtained. This CT examination was performed using dose optimization techniques as appropriate, variously including the following: *Automated exposure control *Adjustment of mA and/or kV according to patient size (this includes techniques or standardized protocols for targeted exams where dose is matched to indication/reason for exam; i.e. 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 Scattered mild atelectasis. Tiny left lower lobe granuloma, 5:452. No suspicious lung nodules. MEDIASTINUM: Unremarkable thyroid. No pathologic lymphadenopathy. Heart size within normal limits. No pericardial effusion. Nonaneurysmal aorta. Nonenlarged pulmonary arteries. CORONARY ARTERY CALCIFICATION: None visualized on this study. PLEURA: There is no pleural effusion. No pleural mass or thickening. AXILLA: No lymphadenopathy. UPPER ABDOMEN: Diffuse hypoattenuation to the hepatic parenchyma with fatty sparing about the gallbladder fossa. OSSEOUS STRUCTURES: No suspicious osseous lesions. CT/CT chest wo IV con IMPRESSION: No suspicious lung lesions. Hepatic steatosis. Fleischner guidelines were followed. Dictated By: Malissa Fields MD Assessment & Plan Assessment & Plan (1) Asthma: Code(s): J45.909 - Unspecified asthma, uncomplicated (2) Allergic rhinitis: Code(s): J30.9 - Allergic rhinitis, unspecified (3) Personal history of tobacco use: Code(s): Z87.891 - Personal history of nicotine dependence Plan Reviewed chest CT which revealed small left lower lobe granuloma, otherwise no concerning lung nodules. Imaging did reveal hepatic steatosis. which patient was aware of. No need for further follow up, unless new symptoms develop. Encouraged patient to continue current regimen. Patient would also like a referral to an tectonophysicist, although RAST was negative but history of positive test with SPT. Will enter this. All questions were answered and patient is in agreement of plan. Will follow up in 6 months or sooner if needed. Orders: Referrals Allergy & Immunology Referral J30.9 - Allergic rhinitis, unspecified, J45.909 - Unspecified asthma, uncomplicated Medications: New ipratropium bromide administer into each nostril 2 sprays intranasal BID 30 mL 0RF Coding Level of Care Code Est Pt Level 4 (94616) Diagnoses Asthma J45.909 Allergic rhinitis J30.9 Personal history of tobacco use Z87.891
== END 2023-08-17 14:47 | disposition home or self-care (01) ==
LOC: HO.HPS 13:35
PROVIDERS: PCP Internal Medicine; Visit Provider Nurse Practitioner Family
DX: J45.909 Unspecified asthma, uncomplicated (principal); J30.9 Allergic rhinitis, unspecified; Z87.891 Personal history of nicotine dependence
CPT/HCPCS: 99214

== ENCOUNTER → 2023-08-17 13:35 | Outpatient (BNVA) | payer OTHER, SELFPAY | PROVIDERS: PCP Internal Medicine; Visit Provider Nurse Practitioner Family | DX: J45.909 Unspecified asthma, uncomplicated (principal); Z87.891 Personal history of nicotine dependence | CPT/HCPCS: 99212 ==

== ENCOUNTER 2023-11-12 14:27 | Outpatient (AMB) | payer OTHER, SELFPAY ==
--- NOTE | 2023-11-12 14:27 | A.OFFVIS_ITS ---
Intake Intake Visit Reasons: follow up video [phone] Allergies methylphenidate Allergy (Intermediate, Verified 11/12/23 14:27) Migraine escitalopram [From Lexapro] Allergy (Mild, Verified 11/12/23 14:27) Irritable benzonatate Allergy (Unknown, Verified 11/12/23 14:27) Unknown carisoprodol [Soma] Allergy (Unknown, Verified 11/12/23 14:27) Unknown celecoxib [Celebrex] Allergy (Unknown, Verified 11/12/23 14:27) Unknown codeine Allergy (Unknown, Verified 11/12/23 14:27) Unknown hydroxyzine Allergy (Unknown, Verified 11/12/23 14:27) Unknown lamotrigine [Lamictal] Allergy (Unknown, Verified 11/12/23 14:27) Unknown milnacipran [Savella] Allergy (Unknown, Verified 11/12/23 14:27) Unknown naproxen [Naprosyn] Allergy (Unknown, Verified 11/12/23 14:27) Unknown pregabalin Allergy (Unknown, Verified 11/12/23 14:27) Unknown rizatriptan [Maxalt] Allergy (Unknown, Verified 11/12/23 14:27) Unknown Sulfa (Sulfonamide Antibiotics) Allergy (Unknown, Verified 11/12/23 14:27) Unknown sulfacetamide Allergy (Unknown, Verified 11/12/23 14:27) Unknown tetracycline Allergy (Unknown, Verified 11/12/23 14:27) Unknown tramadol Allergy (Unknown, Verified 11/12/23 14:27) Unknown amitriptyline Allergy (Verified 11/12/23 14:27) Unknown environmental allergies Allergy (Verified 11/12/23 14:27) Unknown ibuprofen Allergy (Verified 11/12/23 14:27) Unknown latex Allergy (Verified 11/12/23 14:27) Unknown lavender (Lavandula angustifolia) Allergy (Verified 11/12/23 14:27) Unknown NSAIDS (Non-Steroidal Anti-Inflamma Allergy (Verified 11/12/23 14:27) Unknown adhesives Allergy (Intermediate, Uncoded 11/12/23 14:27) itchy rash Erythromycin Allergy (Unknown, Uncoded 11/12/23 14:27) Unknown Wellbutrin Allergy (Unknown, Uncoded 11/12/23 14:27) Unknown Medication List - Last Reconciled 11/12/23 by DOMINGUEZ Morales albuterol sulfate 90 mcg/actuation (ProAir RespiClick) 2 inhalations inhalation Q4-6H PRN atomoxetine (Strattera) 40 mg PO QAM 90 days atomoxetine mg PO cholecalciferol (vitamin D3) 250 mcg PO DAILY cyclobenzaprine 5 mg PO TID PRN 30 days fexofenadine (Amanda Allergy) 180 mg PO Q24H fluticasone propion-salmeterol 250-50 mcg/dose (Wixela Inhub) 1 inh inhalation Q12H glucosamine [id number] 400-200-333 mg 1 tab orally; give with meal/snack imiquimod 5% topical ipratropium bromide 2 sprays intranasal BID ipratropium-albuterol 0.5 mg-3 mg(2.5 mg base)/3 mL 3 mL inhalation Q4-6H PRN 30 days pantoprazole 40 mg PO DAILY rimegepant (Nurtec ODT) 75 mg PO Q OTHER DAY PRN 30 days sertraline mg PO trazodone 50 mg PO BEDTIME vortioxetine (Trintellix) 10 mg PO DAILY HPI HPI Comments History of Present Illness Details 53-yr-old female presents for f/u televi christiano visit via [employer]. Pt reports that she is having episodes of feeling weak following physical activity. She had a recent episode where she took a walk one day and then the following day, she again walked to the store, and found that she became quite tired and her lower back had increased soreness. She can have episodes of right lower back pain which moves down to the right lateral leg- this is chronic. She is having a daily migraine a/w photo/phonophobia which she often wakes up with, and then comes and goes throughout the day. She can have other occipital and neck pain if she is doing something that causes prolonged cervical flexion- this type of headache can respond to shower, massage. She has been noticing a right occipital stabbing pains again. She states that pressing this area- causes the pain to dull. Has had ON injections in her 20s- which did not help. She also has a h/o similar stabbing pains arising from different spots in the midback. The Nurtec helps, but she is running out of tit before she is due for a refill. [facility] Medical History (Updated 11/12/23 @ 19:01 by DOMINGUEZ Morales) Disorder of uterus Migraine Bruxism Spasmodic torticollis Vasovagal syncope Palpitations Arrhythmia Cervicalgia Tendinitis GERD (gastroesophageal reflux disease) TMJ dysfunction Scoliosis Plantar fasciitis Myofascial pain syndrome Fibromyalgia Surgical History Hx of neck surgery History of uterine suspension procedure History of section Hx of tonsillectomy Family History Father Stroke HTN (hypertension) Migraine Dementia Mother HTN (hypertension) DM (diabetes mellitus) Spina bifida Neuropathy H/O fibromyalgia TMJ (dislocation of temporomandibular joint) Paternal Uncle Stroke Paternal Aunt Stroke Paternal Grandfather Stroke Social History Household Members: Children Household Members Other:: adult Alcohol intake: current Alcohol intake frequency: does not drink Patient Tobacco Use Status: Former Tobacco user Quit Date: 2010 Tobacco use type: Cigarette Cigarette Packs Per Day: 1 Cigarettes Per Day: 20 Years Smoked: approx 20 Current occupational status: disabled Review of Systems Const All systems reviewed & are unremarkable except as noted in HPI and below Physical Exam Const General: cooperative and no acute distress Orientation/consciousness: patient oriented x3 HEENT Head: Yes normocephalic Resp Effort & Inspection: normal respiratory effort and able to speak in complete sentences Neuro General: patient oriented x3 Cognition (Neuro): normal cognition Psych Appearance: grossly normal Mental Status: mental status grossly normal Affect: normal affect Attitude: cooperative Assessment & Plan Assessment & Plan (1) Migraine: Code(s): G43.909 - Migraine, unspecified, not intractable, without status migrainosus (2) Sleep difficulties: Code(s): G47.9 - Sleep disorder, unspecified Plan For muscle spasms, neck pain, fibromyalgia: Continue Cyclobenzaprine. Request any previous cervical MRI/imaging reports. Continue walking, paced activity. Future considerations- PT, pain management, neurosx consult. ? For migraine prevention: Start Emgality 240mg sc x's 1 then 120mg sc q month. Previous migraine trials: Verapamil, Amitriptyline, Imitrex- which have not helped. Topiramate- caused tingling. 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 Preventive migraine tx contraindications: BBs d/t asthma dx. ? For acute migraine treatment: Continue Nurtec ODT 75mg 1 tab qd prn onset of migraine. Previous acute migraine trials- triptans- d/t causes severe bothersome paresthesias. ? For cognitive dysfunction- Continue Strattera 40mg qam- we recently filled this d/t pt's prescriber left, pt will be establishing crae w/ [facility] soon. ? For sleep- Trazodone prn. Cyclobenzaprine may help with sleep as well. ? ? f/u in 4 months or sooner prn Medications: New galcanezumab-gnlm (Emgality Pen) 120 mg subcut ONCE 1 mL 6RF 30 days Telehealth Telehealth Location of provider rendering services: practice address Location of patient: address on file Patient Identification confirmed using: Name, : Yes Telehealth method: video Patient verbally consented to treatment: Yes Patient verbally consented to billing insurance company: Yes Patient informed of any privacy concerns related to visit: Yes Minutes spent on Phone/Video with Pt.: 30 Coding Level of Care Code Tele Est Pt Level 4 (48362) Diagnoses Migraine G43.909 Sleep difficulties G47.9
== END 2023-11-13 10:11 | disposition home or self-care (01) ==
LOC: HO.HSMS 14:27
PROVIDERS: PCP Internal Medicine; Visit Provider Nurse Practitioner Family
DX: G43.909 Migraine, unspecified, not intractable, without status migrainosus (principal); G47.9 Sleep disorder, unspecified
CPT/HCPCS: 99214

== ENCOUNTER → 2023-11-12 14:27 | Outpatient (BNVA) | payer OTHER, SELFPAY | PROVIDERS: PCP Internal Medicine; Visit Provider Nurse Practitioner Family ==

== ENCOUNTER 2023-12-18 10:22 | Outpatient (AMB) | payer OTHER, SELFPAY ==
--- NOTE | 2023-12-18 11:24 | A.OFFVIS_ITS ---
Intake Vital Signs 12/18/23 11:27 Height 5 ft 8 in Weight 214 lb BMI 32.5 BP 138/86 Blood Pressure Location Rt brachial Position Sitting Respiration 16 Pulse 86 Pulse Source Pulse Oximeter Pulse Oximetry (%) 98 Oxygen Delivery Method Room Air Intake Visit Reasons: MRI - CONF Intake Note: Pt presents to the office for one month follow up for Migraines. 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: No Allergies methylphenidate Allergy (Intermediate, Verified 12/18/23 11:27) Migraine escitalopram [From Lexapro] Allergy (Mild, Verified 12/18/23 11:27) Irritable benzonatate Allergy (Unknown, Verified 12/18/23 11:) Unknown carisoprodol [Soma] Allergy (Unknown, Verified 12/18/23 11:) Unknown celecoxib [Celebrex] Allergy (Unknown, Verified 12/18/23 11:) Unknown codeine Allergy (Unknown, Verified 12/18/23 11:) Unknown hydroxyzine Allergy (Unknown, Verified 12/18/23 11:) Unknown lamotrigine [Lamictal] Allergy (Unknown, Verified 12/18/23 11:) Unknown milnacipran [Savella] Allergy (Unknown, Verified 12/18/23 11:) Unknown naproxen [Naprosyn] Allergy (Unknown, Verified 12/18/23 11:) Unknown pregabalin Allergy (Unknown, Verified 12/18/23 11:) Unknown rizatriptan [Maxalt] Allergy (Unknown, Verified 12/18/23 11:) Unknown Sulfa (Sulfonamide Antibiotics) Allergy (Unknown, Verified 12/18/23 11:) Unknown sulfacetamide Allergy (Unknown, Verified 12/18/23 11:27) Unknown tetracycline Allergy (Unknown, Verified 12/18/23 11:) Unknown tramadol Allergy (Unknown, Verified 12/18/23 11:) Unknown amitriptyline Allergy (Verified 12/18/23 11:) Unknown environmental allergies Allergy (Verified 12/18/23 11:) Unknown ibuprofen Allergy (Verified 12/18/23 11:) Unknown latex Allergy (Verified 12/18/23 11:) Unknown lavender (Lavandula angustifolia) Allergy (Verified 12/18/23 11:27) Unknown NSAIDS (Non-Steroidal Anti-Inflamma Allergy (Verified 12/18/23 11:27) Unknown adhesives Allergy (Intermediate, Uncoded 12/18/23 11:27) itchy rash Erythromycin Allergy (Unknown, Uncoded 12/18/23 11:27) Unknown Wellbutrin Allergy (Unknown, Uncoded 12/18/23 11:27) Unknown Medication List - Last Reconciled 12/18/23 by DOMINGUEZ Morales albuterol sulfate 90 mcg/actuation (ProAir RespiClick) 2 inhalations inhalation Q4-6H PRN atomoxetine (Strattera) 40 mg PO QAM 90 days atomoxetine mg PO cholecalciferol (vitamin D3) 250 mcg PO DAILY cyclobenzaprine 5 mg PO TID PRN 30 days fexofenadine (Amanda Allergy) 180 mg PO Q24H fluticasone propion-salmeterol 250-50 mcg/dose (Wixela Inhub) 1 inh inhalation Q12H galcanezumab-gnlm (Emgality Pen) 120 mg subcut ONCE 30 days glucosamine [id number]-rtj-[id number] 400-200-333 mg 1 tab orally; give with meal/snack imiquimod 5% topical ipratropium bromide 2 sprays intranasal BID ipratropium-albuterol 0.5 mg-3 mg(2.5 mg base)/3 mL 3 mL inhalation Q4-6H PRN 30 days pantoprazole 40 mg PO DAILY rimegepant (Nurtec ODT) 75 mg PO Q OTHER DAY PRN 30 days sertraline 100 mg PO HPI HPI Comments History of Present Illness Details 53-yr-old female presents for f/u visit. Pt started Emgality on 11/27/23, since she feels that this is helpful. She has been needing to use less Nurtec. She is using her cyclobenzaprine, which helps some of the headaches and neck/upper body tightness. However, she can still feel a knot on the back of her neck, more so on the right. She is still having spasms in her neck and lower back- like pulling up and down. She is having severe stabbing shooting pain from the right neck into the right occipital through right temporal (over the ear). She is also concerned about neck pain and decreased neck mobility. She has a history of cervical surgery. She cannot maintain her head in flexion, say to read for a prolonged time. She can have have Right 4th/5th finger numbness/tingling. She has been having bilateral groin region through anterior thighs shooting neuralgic pain, which is similar to symptoms she had s/p a uterine suspension surgery. Can also have a lower lumbar pain which travels in to the anterior hip region. She is using pain patches, voltaren gel, stretches. [facility] Medical History (Updated 11/12/23 @ 19:01 by DOMINGUEZ Morales) Disorder of uterus Migraine Bruxism Spasmodic torticollis Vasovagal syncope Palpitations Arrhythmia Cervicalgia Tendinitis GERD (gastroesophageal reflux disease) TMJ dysfunction Scoliosis Plantar fasciitis Myofascial pain syndrome Fibromyalgia Surgical History Hx of neck surgery History of uterine suspension procedure History of section Hx of tonsillectomy Family History Father Stroke HTN (hypertension) Migraine Dementia Mother HTN (hypertension) DM (diabetes mellitus) Spina bifida Neuropathy H/O fibromyalgia TMJ (dislocation of temporomandibular joint) Paternal Uncle Stroke Paternal Aunt Stroke Paternal Grandfather Stroke Social History Household Members: Children Household Members Other:: adult Alcohol intake: current Alcohol intake frequency: does not drink Patient Tobacco Use Status: Former Tobacco user Quit Date: 2010 Tobacco use type: Cigarette Cigarette Packs Per Day: 1 Cigarettes Per Day: 20 Years Smoked: approx 20 Current occupational status: disabled Physical Exam Vital Signs: Last Vital Signs Pulse 86 12/18/23 11:27 Resp 16 12/18/23 11:27 BP 138/86 12/18/23 11:27 Pulse Ox 98 12/18/23 11:27 Oxygen Delivery Method Room Air 12/18/23 11:27 BMI result Body Mass Index 32.5 Const General: cooperative and no acute distress Orientation/consciousness: patient oriented x3 Resp Effort & Inspection: normal respiratory effort and able to speak in complete sentences Neuro Other: Limited cervical range of motion in all miranda Bilateral cervical tightness and tenderness Spurling test elicits nonradiating posterior cervical discomfort. Bilateral upper extremity negative Tinel, Phalen, medial compression. Reason S General: patient oriented x3 Cranial nerves: Yes CN's II-XII intact bilaterally Cognition (Neuro): normal cognition Motor exam (neuro): 5/5 motor strength present throughout Deep tendon reflexes (DTR's): Right triceps reflex intensity grade: 2+, Left triceps reflex intensity grade: 2+, Rt Biceps (C5, C6): 2+, Left biceps reflex intensity grade: 2+, Right brachioradialis reflex intensity grade: 2+, Left brachioradialis reflex intensity grade: 2+, Right patellar reflex intensity grade: 2+ and Left patellar reflex intensity grade: 2+ Psych Appearance: grossly normal Mental Status: mental status grossly normal Speech and movement: Normal speech and movement present Affect: normal affect Attitude: cooperative Assessment & Plan Assessment & Plan (1) Cervicalgia: Code(s): M54.2 - Cervicalgia (2) Hx of neck surgery: Comment: cervical 11/2021 Code(s): Z98.890 - Other specified postprocedural states (3) Paresthesia: Code(s): R20.2 - Paresthesia of skin (4) Migraine: Code(s): G43.909 - Migraine, unspecified, not intractable, without status migrainosus Plan For muscle spasms, neck pain, fibromyalgia: Continue Cyclobenzaprine. Patient asked that we send in order for her pain patches, however she is unsure of which 1 she is specifically using now. She will send us the info. Patient advised to undergo C-spine x-ray and C-spine MRI. Continue walking, paced activity. Future considerations- PT, pain management, neurosx consult. ? For migraine prevention: Continue Emgality 120mg sc q month, S patient has greater than 30% reduction in migraine burden. Previous migraine trials: Verapamil, Amitriptyline, Imitrex- which have not helped. Topiramate- caused tingling. 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 Preventive migraine tx contraindications: BBs d/t asthma dx. ? For acute migraine treatment: Continue Nurtec ODT 75mg 1 tab qd prn onset of migraine. Previous acute migraine trials- triptans- d/t causes severe bothersome paresthesias. ? For cognitive dysfunction- Continue Strattera 40mg qam- we recently filled this d/t pt's prescriber left, pt will be establishing care w/ [facility] soon. ? f/u in 4 months or sooner prn This note is constructed using voice recognition software. While every effort has been made to ensure accuracy, consulting systems engineer errors may have been included. Coding Level of Care Code Est Pt Level 4 (49651) Diagnoses Cervicalgia M54.2 Hx of neck surgery Z98.890 Paresthesia R20.2 Migraine G43.909
[2023-12-18 11:27] VITALS: BP 138/86; PULSE 86; RESP 16; O2SAT 98; BMI 32.5
== END 2023-12-18 12:12 | disposition home or self-care (01) ==
PROVIDERS: PCP Internal Medicine; Visit Provider Nurse Practitioner Family
DX: M54.2 Cervicalgia (principal); Z98.890 Other specified postprocedural states; R20.2 Paresthesia of skin; G43.909 Migraine, unspecified, not intractable, without status migrainosus
CPT/HCPCS: 99214

== ENCOUNTER → 2023-12-18 10:22 | Outpatient (BNVA) | payer OTHER, SELFPAY | PROVIDERS: PCP Internal Medicine; Visit Provider Nurse Practitioner Family | DX: M54.2 Cervicalgia (principal); R20.2 Paresthesia of skin; G43.909 Migraine, unspecified, not intractable, without status migrainosus; Z79.899 Other long term (current) drug therapy | CPT/HCPCS: 99212 ==

== ENCOUNTER 2023-12-28 14:39 | Outpatient (REF) | payer OTHER, SELFPAY ==
--- NOTE | ~2023-12-28 | XR_ITS ---
EXAMINATION: XR CERVICAL SPINE CLINICAL INFORMATION: Chronic pain without trauma. COMPARISON: Chronic neck pain; no history of trauma. TECHNIQUE: 7 views of the cervical spine, inclusive of flexion and extension views, were obtained. FINDINGS: Vertebral body heights and alignment are normal. At C3-C4, there is mild anterior spondylosis. At C4-C5, there has been a prior anterior fusion and discectomy, with intact zero-profile anchored spacer. No hardware failure or loosening is seen. There is moderate degenerative disease at C5-C6 and C6-C7. The posterior elements are intact. There is left neural foraminal narrowing at C3-C4, and right neural foraminal narrowing seen at C4-C5. The dens is intact. No prevertebral soft tissue swelling is seen. XR/XR cervical spine min 6V IMPRESSION: 1. There is well-maintained alignment status-post C4-C5 anterior fusion and discectomy. 2. There is mild degenerative disc disease at C3-C4, and moderate degenerative disc disease is seen at C5-C6 and C6-C7. 3. There is left neural foraminal narrowing at C3-C4, and right neural foraminal narrowing seen at C4-C5.
== END 2023-12-28 14:40 | disposition home or self-care (01) ==
LOC: HO.XRAY 14:39
PROVIDERS: Visit Provider Nurse Practitioner Family
DX: M54.2 Cervicalgia (principal)
CPT/HCPCS: 72052

== ENCOUNTER 2024-01-08 09:35 | Outpatient (REF) | payer OTHER, SELFPAY ==
--- NOTE | ~2024-01-08 | MR_ITS ---
EXAMINATION: MR CERVICAL SPINE WITHOUT CONTRAST CLINICAL INFORMATION: History of ACDF in November 2017, complains of neck pain COMPARISON: Cervical spine x-ray on 12/28/2023 TECHNIQUE: MRI of the cervical spine was obtained using routine sequences without contrast. FINDINGS: The visualized cervical vertebrae are intact with normal alignment. No focal bone lesion with abnormal signal can be seen. Evaluation of the intervertebral discs show: C2/C3: Intervertebral disc height is normal, with normal T2 signal. No focal disc herniation is seen. Bilateral C2-C3 neural foramina are patent. Bilateral apophyseal joints are intact with normal alignment. C3/C4: Intervertebral disc height is normal, with normal T2 signal. Mild asymmetric left posterior disc protrusion partially effacing the left lateral recess is seen. Bilateral C3-C4 neural foramina are patent. Bilateral apophyseal joints are intact with normal alignment. C4/C5: There is C4-C5 ACDF. Intervertebral fusion device is seen coursing signal voids. There is mild spinal stenosis with AP diameter of the spinal canal reduced to 9.1 mm. Bilateral C4-C5 neural foramina are patent. Bilateral apophyseal joints are intact with normal alignment. C5/C6: Intervertebral disc height is markedly decreased, with mild loss of T2 signal. Mild posterior disc protrusion is seen. There is moderate spinal stenosis with AP diameter of the spinal canal reduced to 8.2 mm. There is moderate asymmetric left C5-C6 neural foraminal stenosis. Bilateral apophyseal joints are intact with normal alignment. C6/C7: Intervertebral disc height is mildly decreased, with mild loss of T2 signal. Mild posterior disc protrusion is seen. There is mild spinal stenosis with AP diameter of the spinal canal reduced to 9.4 mm. There are moderate right and marked left C6-C7 neural foramina stenosis. Bilateral apophyseal joints are intact with normal alignment. C7/T1: Intervertebral disc height is normal, with normal T2 signal. No focal disc herniation is seen. Bilateral C7-T1 neural foramina are patent. Bilateral apophyseal joints are intact with normal alignment. Cervical spinal cord is normal in position and signal. MR/MR cervical spine wo con IMPRESSION: 1. Status post C4-C5 ACDF. Mild C4-C5 spinal stenosis is present. 2. Mild C3-C4, C5-C6 and C6-C7 posterior disc protrusions, moderate C5-C6 and mild C6-C7 spinal stenosis are seen. 3. Mild spinal stenosis at C4-C5 and C6-C7. Moderate asymmetric left C5-C6 and moderate right and marked left C6-C7 neural foraminal stenosis. 4. There are moderate asymmetric left C5-C6 neural, moderate right and marked left C6-C7 foraminal stenosis.
== END 2024-01-08 09:36 | disposition home or self-care (01) ==
LOC: HO.MRI 09:35
PROVIDERS: PCP Internal Medicine; Visit Provider Nurse Practitioner Family
DX: M54.2 Cervicalgia (principal); R20.2 Paresthesia of skin; G43.909 Migraine, unspecified, not intractable, without status migrainosus; Z98.890 Other specified postprocedural states
CPT/HCPCS: 72141

== ENCOUNTER 2024-01-28 12:38 | Outpatient (AMB) | payer OTHER, SELFPAY ==
--- NOTE | 2024-01-28 12:55 | A.SPINEOV_ITS ---
Intake Intake Visit Reasons: Cervicalgia Intake Note: Ms. 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: No Allergies methylphenidate Allergy (Intermediate, Verified 12/18/23 11:) Migraine escitalopram [From Lexapro] Allergy (Mild, Verified 12/18/23 11:) Irritable benzonatate Allergy (Unknown, Verified 12/18/23 11:) Unknown carisoprodol [Soma] Allergy (Unknown, Verified 12/18/23 11:) Unknown celecoxib [Celebrex] Allergy (Unknown, Verified 12/18/23 11:) Unknown codeine Allergy (Unknown, Verified 12/18/23 11:) Unknown hydroxyzine Allergy (Unknown, Verified 12/18/23 11:) Unknown lamotrigine [Lamictal] Allergy (Unknown, Verified 12/18/23 11:) Unknown milnacipran [Savella] Allergy (Unknown, Verified 12/18/23 11:) Unknown naproxen [Naprosyn] Allergy (Unknown, Verified 12/18/23 11:) Unknown pregabalin Allergy (Unknown, Verified 12/18/23 11:) Unknown rizatriptan [Maxalt] Allergy (Unknown, Verified 12/18/23 11:) Unknown Sulfa (Sulfonamide Antibiotics) Allergy (Unknown, Verified 12/18/23 11:) Unknown sulfacetamide Allergy (Unknown, Verified 12/18/23 11:) Unknown tetracycline Allergy (Unknown, Verified 12/18/23 11:) Unknown tramadol Allergy (Unknown, Verified 12/18/23 11:) Unknown amitriptyline Allergy (Verified 12/18/23 11:) Unknown environmental allergies Allergy (Verified 12/18/23 11:) Unknown ibuprofen Allergy (Verified 12/18/23 11:) Unknown latex Allergy (Verified 12/18/23 11:) Unknown lavender (Lavandula angustifolia) Allergy (Verified 12/18/23 11:) Unknown NSAIDS (Non-Steroidal Anti-Inflamma Allergy (Verified 12/18/23 11:) Unknown adhesives Allergy (Intermediate, Uncoded 12/18/23 11:) itchy rash Erythromycin Allergy (Unknown, Uncoded 12/18/23 11:) Unknown Wellbutrin Allergy (Unknown, Uncoded 12/18/23 11:27) Unknown Assessment & Plan Assessment & Plan (1) Cervicalgia: Code(s): M54.2 - Cervicalgia Plan Dear Jayne, Thank you for referring Mrs Silvestre to our office today. She is a 53-year-old female with a history of an ACDF C4-5 done in 2018 at [facility]. The surgery was done for neck pain and what sounds like possible spinal cord compression. She did well after the surgery and recovered but she has been having ongoing issues with neck pain in the lower part of her cervical spine chronically. She has been through all the typical conservative treatments leading up to her original surgery including physical therapy and cortisone injections. She takes Tylenol if she needs, and can use cyclobenzaprine to help with the pain. The pain improves with stretching and rest. She does not have any upper extremity symptoms. The patient comes in today with an MRI showing mild degenerative disc disease. PMH: Migraines, allergic rhinitis, asthma cerebral DVA, tonsillectomy fibromyalgia uterine surgery, GERD Social hx: She does not smoke, drink, occasionally will vape marijuana. That does seem to help her pain Medications: Amoxil teen pantoprazole fluticasone sertraline, cyclobenzaprine, fexofenadine, Nurtec and Emgality Allergies: Sulfa Physical exam: Awake alert oriented no acute distress, full strength of bilateral upper extremities with normal reflexes, no Duval's Imaging review: Cervical MRI done at [facility] shows more less what looks like normal age-related changes of the spine with evidence of ACDF at C4-5. The radiology report suggests there is foraminal stenosis on the left at C6-7 but I do not appreciate this. The surgical area looks fused. Impression: 53-year-old female with history of chronic neck pain dating back to her teenage years, status post ACDF C4-5 in 2018 with some improvement in her neck pain but chronically she continues to have more less similar symptoms to what she had before surgery. No radicular symptoms. Her MRI and x-rays actually look great. The surgical site is well healed and there is fusion of the disc space. The rest of the spine looks otherwise okay with no significant findings that would support focal neck pain. I think what she is dealing with his muscular. No role for surgery here. She can follow-up with pain management, PT etc. for all the nonsurgical options if she desires. Thank you for allowing us to care for your patient. The total time spent with this visit with this patient was 45 minutes reviewing history, physical exam, cervical spine imaging review, and implementation of treatment plan or further diagnostic testing Ector Avendano MD,PhD [facility] Coding Level of Care Code New Pt Level 4 (23782) Diagnoses Cervicalgia M54.2
== END 2024-01-28 13:20 | disposition home or self-care (01) ==
PROVIDERS: PCP Internal Medicine; Referring Provider Nurse Practitioner Family; Visit Provider Physician Assistant
DX: M54.2 Cervicalgia (principal)
CPT/HCPCS: 99204

== ENCOUNTER → 2024-01-28 12:38 | Outpatient (BNVA) | payer OTHER, SELFPAY | PROVIDERS: PCP Internal Medicine; Visit Provider Physician Assistant | DX: M54.2 Cervicalgia (principal) | CPT/HCPCS: 99202 ==

== ENCOUNTER 2024-02-02 08:01 | Outpatient (AMB) | payer OTHER, SELFPAY ==
--- NOTE | 2024-02-02 08:02 | MHC.OFFVIS ---
Intake Intake Visit Reasons: Migraine/perifrial neuropothy/fibromialgia-pain Allergies methylphenidate Allergy (Intermediate, Verified 02/02/24 08:02) Migraine escitalopram [From Lexapro] Allergy (Mild, Verified 02/02/24 08:02) Irritable benzonatate Allergy (Unknown, Verified 02/02/24 08:02) Unknown carisoprodol [Soma] Allergy (Unknown, Verified 02/02/24 08:02) Unknown celecoxib [Celebrex] Allergy (Unknown, Verified 02/02/24 08:02) Unknown codeine Allergy (Unknown, Verified 02/02/24 08:02) Unknown hydroxyzine Allergy (Unknown, Verified 02/02/24 08:02) Unknown lamotrigine [Lamictal] Allergy (Unknown, Verified 02/02/24 08:02) Unknown milnacipran [Savella] Allergy (Unknown, Verified 02/02/24 08:02) Unknown naproxen [Naprosyn] Allergy (Unknown, Verified 02/02/24 08:02) Unknown pregabalin Allergy (Unknown, Verified 02/02/24 08:02) Unknown rizatriptan [Maxalt] Allergy (Unknown, Verified 02/02/24 08:02) Unknown Sulfa (Sulfonamide Antibiotics) Allergy (Unknown, Verified 02/02/24 08:02) Unknown sulfacetamide Allergy (Unknown, Verified 02/02/24 08:02) Unknown tetracycline Allergy (Unknown, Verified 02/02/24 08:02) Unknown tramadol Allergy (Unknown, Verified 02/02/24 08:02) Unknown amitriptyline Allergy (Verified 02/02/24 08:02) Unknown environmental allergies Allergy (Verified 02/02/24 08:02) Unknown ibuprofen Allergy (Verified 02/02/24 08:02) Unknown latex Allergy (Verified 02/02/24 08:02) Unknown lavender (Lavandula angustifolia) Allergy (Verified 02/02/24 08:02) Unknown NSAIDS (Non-Steroidal Anti-Inflamma Allergy (Verified 02/02/24 08:02) Unknown adhesives Allergy (Intermediate, Uncoded 02/02/24 08:02) itchy rash Erythromycin Allergy (Unknown, Uncoded 02/02/24 08:02) Unknown Wellbutrin Allergy (Unknown, Uncoded 02/02/24 08:02) Unknown HPI HPI Comments History of Present Illness Details 53-yr-old female presents for f/u televideo visit via [facility]. Pt did have c-spine x-ray and then had f/u c-spine MRI. 12/28/23, XR/XR cervical spine min 6V: 1. There is well-maintained alignment status-post C4-C5 anterior fusion and discectomy. 2. There is mild degenerative disc disease at C3-C4, and moderate degenerative disc disease is seen at C5-C6 and C6-C7. 3. There is left neural foraminal narrowing at C3-C4, and right neural foraminal narrowing seen at C4-C5. 01/12/24, MR/MR cervical spine wo con 1. Status post C4-C5 ACDF. Mild C4-C5 spinal stenosis is present. 2. Mild C3-C4, C5-C6 and C6-C7 posterior disc protrusions, moderate C5-C6 and mild C6-C7 spinal stenosis are seen. 3. Mild spinal stenosis at C4-C5 and C6-C7. Moderate asymmetric left C5-C6 and moderate right and marked left C6-C7 neural foraminal stenosis. 4. There are moderate asymmetric left C5-C6 neural, moderate right and marked left C6-C7 foraminal stenosis. Pt did see neurosurgery- who felt that her cervical and UE s/s are more musculoskeletal in nature than neurogenic. She does find that increased upper body activity, such as repeatedly folding blankets, can trigger upper mid back discomfort. She can have right shoulder pain. She notes a h/o right brachial plexus many yrs ago. She notes a h/o right shoulder cortisone injection- which caused significant side effects x's 1 week. She has been having more lower back pain which moves to side of her right hip and then moves down the side of her leg. She notes in 2014 she had a right foot injury- and since every off in a while, she will have bothersome foot discomfort and she will need to wear different shoes. Her muscles can be quite tense. Using topical biofreeze and cyclobenzaprine is helpful. She continues on Emgality. It can cause injection site reaction- area red itchiness. She is now having 3 migraine days per week, decreased from daily migraine. Migraine still triggered by the sun/light. Does take clem daily. using calamine lotion helps some. [facility] Medical History (Updated 02/02/24 @ 09:05 by DOMINGUEZ Morales) Disorder of uterus Migraine Bruxism Spasmodic torticollis Vasovagal syncope Palpitations Arrhythmia Cervicalgia Tendinitis GERD (gastroesophageal reflux disease) TMJ dysfunction Scoliosis Plantar fasciitis Myofascial pain syndrome Fibromyalgia Surgical History Hx of neck surgery History of uterine suspension procedure History of section Hx of tonsillectomy Family History Father Stroke HTN (hypertension) Migraine Dementia Mother HTN (hypertension) DM (diabetes mellitus) Spina bifida Neuropathy H/O fibromyalgia TMJ (dislocation of temporomandibular joint) Paternal Uncle Stroke Paternal Aunt Stroke Paternal Grandfather Stroke Social History Household Members: Children Household Members Other:: adult Alcohol intake: current Alcohol intake frequency: does not drink Patient Tobacco Use Status: Former Tobacco user Quit Date: 2010 Tobacco use type: Cigarette Cigarette Packs Per Day: 1 Cigarettes Per Day: 20 Years Smoked: approx 20 Current occupational status: disabled Physical Exam Const General: cooperative and no acute distress Orientation/consciousness: patient oriented x3 Resp Effort & Inspection: normal respiratory effort and able to speak in complete sentences Neuro General: patient oriented x3 Cognition (Neuro): normal cognition Psych Appearance: grossly normal Mental Status: mental status grossly normal Speech and movement: Normal speech and movement present Affect: normal affect Attitude: cooperative Assessment & Plan Assessment & Plan (1) Cervicalgia: Code(s): M54.2 - Cervicalgia (2) Muscle spasm: Code(s): M62.838 - Other muscle spasm (3) Migraine: Code(s): G43.909 - Migraine, unspecified, not intractable, without status migrainosus (4) Fibromyalgia: Code(s): M79.7 - Fibromyalgia (5) Low back pain: Code(s): M54.50 - Low back pain, unspecified Plan For muscle spasms, neck pain, back pain, fibromyalgia: Continue Cyclobenzaprine. Continue biofreeze prn. Offered referal to PT and/or pain management- pt decliend at this time- this has not been helpful in the past. Continue walking, paced activity. Trial gentle, paced yoga. ? For migraine prevention: Continue Emgality 120mg sc q month, as patient has greater than 30% reduction in migraine burden. Previous migraine trials: Verapamil, Amitriptyline, Imitrex- which have not helped. Topiramate- caused tingling. 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 Preventive migraine tx contraindications: BBs d/t asthma dx. ? For acute migraine treatment: Continue Nurtec ODT 75mg 1 tab qd prn onset of migraine. Previous acute migraine trials- triptans- d/t causes severe bothersome paresthesias. ? For cognitive dysfunction- Continue Strattera 40mg qam- we recently filled this d/t pt's prescriber left, pt will be establishing care w/ [facility] soon. ? ? f/u in 4 months or sooner prn Telehealth Telehealth Location of provider rendering services: practice address Location of patient: address on file Patient Identification confirmed using: Name, : Yes Telehealth method: video Patient verbally consented to treatment: Yes Patient verbally consented to billing insurance company: Yes Patient informed of any privacy concerns related to visit: Yes Minutes spent on Phone/Video with Pt.: 30 Coding Level of Care Code Tele Est Pt Level 4 (81456) Diagnoses Cervicalgia M54.2 Muscle spasm M62.838 Migraine G43.909 Fibromyalgia M79.7 Low back pain M54.50
== END 2024-02-02 09:30 | disposition home or self-care (01) ==
LOC: HO.HSMS 08:01
PROVIDERS: PCP Internal Medicine; Visit Provider Nurse Practitioner Family
DX: M54.2 Cervicalgia (principal); M62.838 Other muscle spasm; G43.909 Migraine, unspecified, not intractable, without status migrainosus; M79.7 Fibromyalgia; M54.50 Low back pain, unspecified
CPT/HCPCS: 99214

== ENCOUNTER → 2024-02-02 08:01 | Outpatient (BNVA) | payer OTHER, SELFPAY | PROVIDERS: PCP Internal Medicine; Visit Provider Nurse Practitioner Family ==

== ENCOUNTER → 2024-08-31 15:24 | Outpatient (BNVA) | payer OTHER, SELFPAY | PROVIDERS: PCP Internal Medicine; Visit Provider Nurse Practitioner Family ==

== ENCOUNTER 2024-08-31 15:26 | Outpatient (AMB) | payer OTHER, SELFPAY ==
--- NOTE | 2024-08-31 15:24 | A.OFFVIS_ITS ---
Intake Visit Reasons: Follow Up Allergies methylphenidate Allergy (Intermediate, Verified 08/31/24 15:24) Migraine escitalopram [From Lexapro] Allergy (Mild, Verified 08/31/24 15:24) Irritable benzonatate Allergy (Unknown, Verified 08/31/24 15:24) Unknown carisoprodol [Soma] Allergy (Unknown, Verified 08/31/24 15:24) Unknown celecoxib [Celebrex] Allergy (Unknown, Verified 08/31/24 15:24) Unknown codeine Allergy (Unknown, Verified 08/31/24 15:24) Unknown hydroxyzine Allergy (Unknown, Verified 08/31/24 15:24) Unknown lamotrigine [Lamictal] Allergy (Unknown, Verified 08/31/24 15:24) Unknown milnacipran [Savella] Allergy (Unknown, Verified 08/31/24 15:24) Unknown naproxen [Naprosyn] Allergy (Unknown, Verified 08/31/24 15:24) Unknown pregabalin Allergy (Unknown, Verified 08/31/24 15:24) Unknown rizatriptan [Maxalt] Allergy (Unknown, Verified 08/31/24 15:24) Unknown Sulfa (Sulfonamide Antibiotics) Allergy (Unknown, Verified 08/31/24 15:24) Unknown sulfacetamide Allergy (Unknown, Verified 08/31/24 15:24) Unknown tetracycline Allergy (Unknown, Verified 08/31/24 15:24) Unknown tramadol Allergy (Unknown, Verified 08/31/24 15:24) Unknown amitriptyline Allergy (Verified 08/31/24 15:24) Unknown environmental allergies Allergy (Verified 08/31/24 15:24) Unknown ibuprofen Allergy (Verified 08/31/24 15:24) Unknown latex Allergy (Verified 08/31/24 15:24) Unknown lavender (Lavandula angustifolia) Allergy (Verified 08/31/24 15:24) Unknown NSAIDS (Non-Steroidal Anti-Inflamma Allergy (Verified 08/31/24 15:24) Unknown adhesives Allergy (Intermediate, Uncoded 08/31/24 15:24) itchy rash Erythromycin Allergy (Unknown, Uncoded 08/31/24 15:24) Unknown Wellbutrin Allergy (Unknown, Uncoded 08/31/24 15:24) Unknown Medication List - Last Reconciled 08/31/24 by Jayne Zavaleta, DOMINGUEZ albuterol sulfate 90 mcg/actuation (ProAir RespiClick) 2 inhalations inhalation Q4-6H PRN atomoxetine (Strattera) 40 mg PO QAM 90 days atomoxetine mg PO camphor-methyl salicyl-menthol 3.1-10-6 % (Pain Relieving (camphor-m.salicyl-menth)) 1 patch topical BID-TID PRN 30 days carvedilol PO cholecalciferol (vitamin D3) 250 mcg PO DAILY cyclobenzaprine 5 mg PO TID PRN 30 days fexofenadine (Amanda Allergy) 180 mg PO Q24H fluticasone propion-salmeterol 250-50 mcg/dose (Wixela Inhub) 1 inh inhalation Q12H galcanezumab-gnlm (Emgality Pen) 120 mg subcut ONCE 30 days glucosamine RXt-ciz-kwwatmoojs 400-200-333 mg 1 tab orally; give with meal/snack imiquimod 5% topical ipratropium bromide 2 sprays intranasal BID ipratropium-albuterol 0.5 mg-3 mg(2.5 mg base)/3 mL 3 mL inhalation Q4-6H PRN 30 days pantoprazole 40 mg PO DAILY rimegepant (Nurtec ODT) 75 mg PO ONCE PRN 30 days MDD 1 sertraline 100 mg PO HPI Comments Details: 53-yr-old female presents for f/u televideo visit via [facility]. Pt reports she has had a flare-up of her xrab-dcufcpuz-uiqzuc paraspinal muscle spasms and a burning and spreading/pulsating pain. She is not sure if muscle spasms are worse when she is at rest or with action- but has had muscle spasms when bending over to get something. Sometimes her arms or legs will jerk some when she is relaxing. Some days she can take along walk, but then may not be able to walk for a few days. She reports her bilateral ulnar neuropathy s/s are coming back- has to be careful if she elevates her arm. This comes and goes since her early 30s. In the past elbow splints helped. She had a brief period of electrical type pain on the top of her foot- possibly d/t walking in a different pair of shoes. She states that the cyclobenzaprine helps, but use varies- sometimes takes 5mg bid or 10mg in am only. Topical biofreeze or topical patches on neck and lower back- does help some. She did have f/u neurosurgical consult for her neck pain- w/ Dr Santillan at [facility] who advised pt to not have any further surgery d/t h/o worsening memory/amnesia following anesthesia in the past. She continues to do better with her migraine attacks. She continues on Emgality. It can cause injection site reaction- area red itchiness. She is now having < 3 migraine days per week, decreased from previous daily migraine. Nurtec 75mg ODT prn is helpful. Migraine still triggered by the sun/light. Does take amanda daily. Using calamine lotion helps her sinus headache some. [facility] Medical History Disorder of uterus Migraine Bruxism Spasmodic torticollis Vasovagal syncope Palpitations Arrhythmia Cervicalgia Tendinitis GERD (gastroesophageal reflux disease) TMJ dysfunction Scoliosis Plantar fasciitis Myofascial pain syndrome Fibromyalgia Surgical History Hx of neck surgery History of uterine suspension procedure History of section Hx of tonsillectomy Family History Father Stroke HTN (hypertension) Migraine Dementia Mother HTN (hypertension) DM (diabetes mellitus) Spina bifida Neuropathy H/O fibromyalgia TMJ (dislocation of temporomandibular joint) Paternal Uncle Stroke Paternal Aunt Stroke Paternal Grandfather Stroke Social History Household Members: Children Household Members Other:: adult Alcohol intake: current Alcohol intake frequency: does not drink Patient Tobacco Use Status: Former Tobacco user Tobacco use type: Cigarette Cigarette Packs Per Day: 1 Cigarettes Per Day: 20 Years Smoked: approx 20 Current occupational status: disabled Physical Exam Const General: cooperative and no acute distress Orientation/consciousness: patient oriented x3 Resp Effort & Inspection: normal respiratory effort and able to speak in complete sentences Neuro General: patient oriented x3 Cognition (Neuro): normal cognition Psych Appearance: grossly normal Mental Status: mental status grossly normal Speech and movement: Normal speech and movement present Affect: normal affect Attitude: cooperative Telehealth Telehealth Telehealth Platform: [facility] Location of provider rendering services: practice address Location of patient: address on file Patient Identification confirmed using: Name, : Yes Telehealth method: video Patient verbally consented to treatment: Yes Patient verbally consented to billing insurance company: Yes Patient informed of any privacy concerns related to visit: Yes Minutes spent on Phone/Video with Pt.: 40 Assessment & Plan Assessment & Plan (1) Ulnar neuropathy of both upper extremities: Code(s): G56.23 - Lesion of ulnar nerve, bilateral upper limbs Category: Medical (2) Cervicalgia: Code(s): M54.2 - Cervicalgia Category: Medical (3) Spasm of back muscles: Code(s): M62.830 - Muscle spasm of back Category: Medical (4) Back pain: Code(s): M54.9 - Dorsalgia, unspecified Category: Medical (5) Muscle spasm: Code(s): M62.838 - Other muscle spasm Category: Medical (6) Migraine: Code(s): G43.909 - Migraine, unspecified, not intractable, without status migrainosus Category: Medical (7) Fibromyalgia: Code(s): M79.7 - Fibromyalgia Category: Medical (8) Low back pain: Code(s): M54.50 - Low back pain, unspecified Category: Medical Plan For muscle spasms, neck pain, back pain, fibromyalgia, BUE paresthesias: Continue Cyclobenzaprine 5mg tid, may occasionally take 10mg. Continue topical patches or biofreeze prn. Trial PT eval & tx for myfascial release, massage, dry needling. Trial BUE cubital tunnel splints while sleeping. Continue walking, paced activity. For migraine prevention: Continue Emgality 120mg sc q month, as patient has greater than 30% reduction in migraine burden. Previous migraine trials: Verapamil, Amitriptyline, Imitrex- which have not helped. Topiramate- caused tingling. 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 Preventive migraine tx contraindications: BBs d/t asthma dx. ? For acute migraine treatment: Continue Nurtec ODT 75mg 1 tab qd prn onset of migraine. Previous acute migraine trials- triptans- d/t causes severe bothersome paresthesias. ? For cognitive dysfunction- Continue Strattera- managed by [facility].. ? ? f/u in 6 months or sooner prn Orders: Orders PT Evaluation and Treatment Today M54.2 - Cervicalgia, M54.9 - Dorsalgia, unspecified, M62.830 - Muscle spasm of back Medications: New [Bilateral Cubital Tunnel Elbow Brace] Use when sleeping. 2 ea 1RF G56.23 - L esion of ulnar nerve, bilateral upper limbs quetiapine 25 mg PO BEDTIME Changed From atomoxetine (Strattera) 40 mg PO QAM 90 days 90 caps 1RF To atomoxetine (Strattera) 60 mg (1.5 x 40 mg) PO QAM 90 days 135 caps 1RF Refilled cyclobenzaprine 5 mg PO TID 30 days PRN 90 tabs 3RF muscle spasm rimegepant (Nurtec ODT) 75 mg PO ONCE 30 days PRN 16 tabs 6RF migraine headache MDD 1 Coding Level of Care Code Tele Est Pt Level 4 (12263) Diagnoses Ulnar neuropathy of both upper extremities G56.23 Cervicalgia M54.2 Spasm of back muscles M62.830 Back pain M54.9 Muscle spasm M62.838 Migraine G43.909 Fibromyalgia M79.7 Low back pain M54.50
== END 2024-08-31 16:00 | disposition home or self-care (01) ==
PROVIDERS: PCP Internal Medicine; Visit Provider Nurse Practitioner Family
DX: G56.23 Lesion of ulnar nerve, bilateral upper limbs (principal); M54.2 Cervicalgia; M62.830 Muscle spasm of back; M54.9 Dorsalgia, unspecified; M62.838 Other muscle spasm; G43.909 Migraine, unspecified, not intractable, without status migrainosus; M79.7 Fibromyalgia; M54.50 Low back pain, unspecified
CPT/HCPCS: 99214

== ENCOUNTER 2025-03-14 13:34 | Outpatient (AMB) | payer OTHER, SELFPAY ==
--- NOTE | 2025-03-14 13:49 | A.OFFVIS_ITS ---
Vital Signs 03/14/25 13:51 Height 5 ft 9 in Weight 218 lb BMI 32.2 BP 130/70 Blood Pressure Location Rt brachial Pulse 80 Pulse Source Pulse Oximeter Pulse Oximetry (%) 96 Oxygen Delivery Method Room Air Intake Visit Reasons: Asthma [employer] Photo Operator Required: No Commissioner Of Officials: Commissioner Of Officials offered & declined Accompanied by: Self / Same As Patient Allergies methylphenidate Allergy (Intermediate, Verified 03/14/25 13:55) Migraine escitalopram [From Lexapro] Allergy (Mild, Verified 03/14/25 13:55) Irritable benzonatate Allergy (Unknown, Verified 03/14/25 13:55) Unknown carisoprodol [Soma] Allergy (Unknown, Verified 03/14/25 13:55) Unknown celecoxib [Celebrex] Allergy (Unknown, Verified 03/14/25 13:55) Unknown codeine Allergy (Unknown, Verified 03/14/25 13:55) Unknown hydroxyzine Allergy (Unknown, Verified 03/14/25 13:55) Unknown lamotrigine [Lamictal] Allergy (Unknown, Verified 03/14/25 13:55) Unknown milnacipran [Savella] Allergy (Unknown, Verified 03/14/25 13:55) Unknown naproxen [Naprosyn] Allergy (Unknown, Verified 03/14/25 13:55) Unknown prednisone Allergy (Unknown, Verified 03/14/25 20:06) Unknown pregabalin Allergy (Unknown, Verified 03/14/25 13:55) Unknown rizatriptan [Maxalt] Allergy (Unknown, Verified 03/14/25 13:55) Unknown Sulfa (Sulfonamide Antibiotics) Allergy (Unknown, Verified 03/14/25 13:55) Unknown sulfacetamide Allergy (Unknown, Verified 03/14/25 13:55) Unknown tetracycline Allergy (Unknown, Verified 03/14/25 13:55) Unknown tramadol Allergy (Unknown, Verified 03/14/25 13:55) Unknown amitriptyline Allergy (Verified 03/14/25 13:55) Unknown environmental allergies Allergy (Verified 03/14/25 13:55) Unknown ibuprofen Allergy (Verified 03/14/25 13:55) Unknown latex Allergy (Verified 03/14/25 13:55) Unknown lavender (Lavandula angustifolia) Allergy (Verified 03/14/25 13:55) Unknown NSAIDS (Non-Steroidal Anti-Inflamma Allergy (Verified 03/14/25 13:55) Unknown adhesives Allergy (Intermediate, Uncoded 03/14/25 13:55) itchy rash Erythromycin Allergy (Unknown, Uncoded 03/14/25 13:55) Unknown Wellbutrin Allergy (Unknown, Uncoded 03/14/25 13:55) Unknown Medication List - Last Reconciled 03/14/25 by Brigida Schaffer LPN albuterol sulfate 90 mcg/actuation (ProAir RespiClick) 2 inhalations inhalation Q4-6H PRN atomoxetine (Strattera) 80 mg PO QAM [Bilateral Cubital Tunnel Elbow Brace Use when sleeping.] camphor-methyl salicyl-menthol 3.1-10-6 % (Pain Relieving (camphor-m.salicyl-menth)) 1 patch topical BID-TID PRN 30 days carvedilol PO cholecalciferol (vitamin D3) 250 mcg PO DAILY cyclobenzaprine 5 mg PO TID PRN 30 days fexofenadine (Amanda Allergy) 180 mg PO Q24H fluticasone propion-salmeterol 250-50 mcg/dose (Wixela Inhub) 1 inh inhalation Q12H galcanezumab-gnlm (Emgality Pen) 120 mg subcut ONCE 30 days glucosamine QIu-qdy-jeersiktse 400-200-333 mg 1 tab orally; give with meal/snack imiquimod 5% topical ipratropium bromide 2 sprays intranasal BID ipratropium-albuterol 0.5 mg-3 mg(2.5 mg base)/3 mL 3 mL inhalation Q4-6H PRN 30 days pantoprazole 40 mg PO DAILY quetiapine 25 mg PO BEDTIME rimegepant (Nurtec ODT) 75 mg PO ONCE PRN 30 days MDD 1 sertraline 100 mg PO HPI HPI Asthma: Details: Cinthya is a pleasant 54 year old female, former smoker with 20 pack year history, quit 13+ years ago with underlying history of asthma. She reports suboptimal control of respiratory symptoms on Wixela 100 mcg, previously on Wixela 250mcg. Since the last visit, she was evaluated by Dr. Sharp, claim professional, with negative SPT. Of note, she reports her son tested + for alpha 1 antitrypsin deficiency and is questioning testing for herself. She also reports prior h/o NEFTALI on CPAP many years ago and continues with daytime fatigue and nonrestorative sleep. She denies any visits to urgent care or hospitalizations related to respiratory distress since the last visit. [facility] Medical History Disorder of uterus Migraine Bruxism Spasmodic torticollis Vasovagal syncope Palpitations Arrhythmia Cervicalgia Tendinitis GERD (gastroesophageal reflux disease) TMJ dysfunction Scoliosis Plantar fasciitis Myofascial pain syndrome Fibromyalgia Surgical History Hx of neck surgery History of uterine suspension procedure History of section Hx of tonsillectomy Family History Father Stroke HTN (hypertension) Migraine Dementia Mother HTN (hypertension) DM (diabetes mellitus) Spina bifida Neuropathy H/O fibromyalgia TMJ (dislocation of temporomandibular joint) Paternal Uncle Stroke Paternal Aunt Stroke Paternal Grandfather Stroke Social History Household Members: Children Household Members Other:: adult Alcohol intake: current Alcohol intake frequency: does not drink Patient Tobacco Use Status: Former Tobacco user Tobacco use type: Cigarette Cigarette Packs Per Day: 1 Cigarettes Per Day: 20 Years Smoked: approx 20 Current occupational status: disabled Review of Systems Const Denies chills, Denies excessive sweating, Denies fever(s), Denies headache(s) and Denies night sweats Eyes Denies dry eyes, Denies irritation and Denies itchy eyes ENT Reports Normal hearing present, Denies headache(s), Denies nasal congestion, Denies nasal discharge, Denies post nasal drip and Denies sore throat Card Denies chest pain, Denies chest pain at rest, Denies chest pain with activity, Denies claudication, Denies leg edema, Denies orthopnea and Denies paroxysmal nocturnal dyspnea Resp Denies chest congestion, Denies excessive phlegm production, Denies pain on inspiration, Denies pain with cough and Denies stridor Musc Denies myalgias Neuro Reports Normal hearing present and Denies headache(s) Endo Denies excessive sweating Tushar/Lymph Denies lymphadenopathy Aller/Immun Denies itchy eyes and Denies seasonal rhinorrhea Physical Exam Vital Signs: Last Vital Signs Pulse 80 03/14/25 13:51 BP 130/70 03/14/25 13:51 Pulse Ox 96 03/14/25 13:51 Oxygen Delivery Method Room Air 03/14/25 13:51 BMI result Body Mass Index 32.2 Const General: cooperative, healthy appearing, comfortable, no acute distress, well developed and alert Nutritional Appearance: obese Orientation/consciousness: patient oriented x3 Limitations: no limitations HEENT Head: Yes normal to inspection, Yes normocephalic and Yes atraumatic Ears: hearing grossly normal bilaterally and external ears normal Eyes General: appearance normal, both eyes and all related structures Eyelids: Yes eyelids normal Sclerae: sclerae normal EOM: EOMs intact bilaterally Neck Neck: Yes normal visual inspection and Yes no lymphadenopathy Lymphatic: no lymphadenopathy noted Chest Chest palpation & inspection: normal inspection of the chest Resp Effort & Inspection: normal respiratory effort, able to speak in complete sentences, no audible wheezes, no cough, no stridor, not tachypneic, no tripod positioning and no use of accessory muscles Auscultation: clear to auscultation bilaterally Cardio Jugular venous distension: no JVD Rate: regular rate Rhythm: regular rhythm Skin Other: warm, dry General skin exam: no rashes or lesions noted Neuro General: patient oriented x3 Cranial nerves: Yes Normal hearing present Cognition (Neuro): normal cognition Gait exam (Neuro): Normal gait present Extrem General: Yes normal to inspection, Yes capillary refill normal, Yes no clubbing, cyanosis or edema and Yes no pedal edema Psych Appearance: grossly normal and well kempt Speech and movement: Normal speech and movement present and Clear speech present Affect: normal affect Attitude: cooperative Thought process: Normal thought process present Thought content: Normal thought content present Insight: Good insight present (Psych) Judgement: Good judgement present (Psych) Assessment & Plan Assessment & Plan (1) Asthma: Code(s): J45.909 - Unspecified asthma, uncomplicated Category: Medical (2) Personal history of tobacco use: Code(s): Z87.891 - Personal history of nicotine dependence Category: Social Hx (3) Daytime somnolence: Code(s): R40.0 - Somnolence Category: Medical Plan Will switch Wixela to Breo 200mcg. Patient aware to call if symptoms continue to be uncontrolled. She reports son with h/o alpha 1 antitrypsin deficiency, swab performed in office today. Patient reports symptoms suggestive of NEFTALI, with prior h/o NEFTALI. Will send for home sleep study. All questions were answered and patient is in agreement of plan. Will follow up in 8-10 weeks or sooner if needed. Orders: Orders RT home sleep study Today R40.0 - Somnolence Medications: New fluticasone furoate-vilanterol 200-25 mcg/dose (Breo Ellipta) 1 inh inhalation DAILY 60 ea 6RF albuterol sulfate 90 mcg/actuation (ProAir RespiClick) 2 inhalations inhalation Q4-6H PRN 1 ea 6RF shortness of breath or wheezing Discontinued fluticasone propion-salmeterol 250-50 mcg/dose (Wixela Inhub) Discontinued Reason: Patient Completed Course 1 inh inhalation Q12H 60 ea 4RF Coding Level of Care Code Est Pt Level 4 (23039) Diagnoses Asthma J45.909 Personal history of tobacco use Z87.891 Daytime somnolence R40.0
[2025-03-14 13:51] VITALS: BP 130/70; PULSE 80; O2SAT 96; BMI 32.2
--- OUTSIDE RECORDS SUMMARY | 2025-03-14 16:04 | XMS_ITS | Clinical Summary ---
Author Organization [address] [place] [address] [place] [phone] Phone Care Team Providers Care Clearing Hand Name Role Phone Charles Purcell DO Primary Care Provider [phone] Allergies Active Allergy Reactions Criticality Noted Date Comments Adhesive 07/13/2023 Skin irritation Aspirin 03/22/2024 Codeine GI intolerance 01/24/2021 Duloxetine 03/22/2024 Thins blood Erythromycin 01/24/2021 Back pain Escitalopram Oxalate 11/27/2022 Mood changes Hyoscamine Unknown 04/27/2024 Ibuprofen 01/24/2021 Stomach issues Latex 07/13/2023 Other Reaction(s): Rash/Dermatitis Nsaids (Non-Steroidal Anti-Inflammatory Drug) 01/24/2021 Propoxyphene Wheezing 07/13/2023 Rizatriptan Benzoate 01/24/2021 Tingling in my head Sulfa (Sulfonamide Antibiotics) GI intolerance 01/24/2021 Sulfamethoxazole-Trimetho prim 07/13/2023 Other reaction(s): severe vomiting Sumatriptan 07/13/2023 Tingling in my head Tetracycline Rash 01/24/2021 Bupropion Hcl Unknown 12/14/2024 Medications carvediloL (COREG) 3.125 mg tablet TAKE ONE TABLET BY MOUTH TWICE A DAY WITH MEALS - DISCONTINUE METOPROLOL 60 tablet 5 4 Active CHOLECALCIFEROL , VITAMIN D3, ORAL Take 250 mcg by mouth 1 (one) time each day. Active DIPHENHYDRAMINE HCL ORAL Take by mouth. Activ e multivit-min/ir on/FA/vit K/lut (CENTRUM SILVER WOMEN ORAL) Take by mouth. Act adrienne ZINC ORAL Take by mouth 3 (three) times a day. Active albuterol sulfate (ProAir RespiClick) 90 mcg/actuation aerosol powdr breath activated Inhale into the lungs. Active atomoxetine (STRATTERA) 10 mg capsule 3 Active atomoxetine (STRATTERA) 40 mg capsule Take 60 mg by mouth 1 (one) time each day. Active cyclobenzaprine (FLEXERIL) 5 mg tablet Take 1 tablet (5 mg total) by mouth 3 (three) times a day if needed. Active fexofenadine (NICKIE) 180 mg tablet Take 1 tablet (180 mg total) by mouth 1 (one) time each day. Active galcanezumab-gn lm (Emgality Pen) 120 mg/mL injection pen Inject into the skin. Active pantoprazole (PROTONIX) 40 mg EC tablet 3 Active rimegepant (Nurtec) 75 mg dispersible tablet Take by mouth. Activ e sertraline (ZOLOFT) 100 mg tablet Take 1.5 tablets (150 mg total) by mouth 1 (one) time each day. Active fluticasone-jasvir meterol (ADVAIR DISKUS) 250-50 mcg/dose diskus inhaler Active cimetidine (TAGAMET) 800 mg tablet Take 1 tablet (800 mg total) by mouth 3 (three) times a day. 4 Active QUEtiapine (SEROquel) 25 mg tablet Take 1 tablet (25 mg total) by mouth at bedtime. 5 Active ipratropium-alb uteroL (DUONEB) 0.5-2.5 mg/3 mL nebulizer solution Take 3 mL by nebulization if needed. 4 Active diclofenac (VOLTAREN) 1 % topical gel Apply 2 g topically if needed. 4 Active sodium chloride (OCEAN) 0.65 % nasal spray Administer 1 spray into each nostril if needed. 8 Active imiquimod (ALDARA) 5 % cream Apply 1 packet topically if needed. 4 Active [id number] -HYAL-ANTIARTH3 ORAL Take by mouth. Activ e olopatadine (PATANOL) 0.1 % ophthalmic solution Administer 1 drop into both eyes if needed for allergies. Active Active Problems Problem Noted Date Diagnosed Date Fatigue 12/17/2023 Overview (11/02/2024): Last Assessment & Plan: Last echo was in 2017 and was essentially normal. She does not have heart failure or significant murmur. Repeat echocardiogram. Abnormal EKG 11/27/2022 Overview (11/02/2024): Last Assessment & Plan: Her coronary artery is normal without atherosclerotic lesions. Will continue primary prevention. Her heart rate slightly on higher side today and frequently she had a higher heart rate, I will initiate low-dose metoprolol and increase dose as tolerated. Hyperlipidemia 11/27/2022 Overview (11/02/2024): Last Assessment & Plan: Most recent LDL was 144 and she has no atherosclerotic coronary artery lesions. Will hold off statin therapy. Asthma 01/24/2021 Seasonal allergies 01/24/2021 Vasovagal syndrome 01/24/2021 Encounters Date Type Department Care Team Description 02/24/2025 Telephone [facility] - [facility] [address] [facility] [address] [place] [phone] Renny Aguiar MD No Show 02/15/2025 Telephone Gastroenterology - 299 [facility] 299 [facility] [address] [place] [phone] Umair Mendez MD 12/22/2024 2:34 PM EST Anesthesia Event [facility] [address] [place] [phone] Ector Patricia DO Korobkov, Vitaliy, DO 12/22/2024 12:38 PM EST - 12/22/2024 11:59 PM EST Hospital Encounter [facility] [address] [place] [phone] Umair Mendez MD Steele, Matthew G, CRNA Spencer, Mark A, MD Epigastric pain; GERD (gastroesophageal reflux disease); Nausea and vomiting Discharge Disposition: Home or Self Care 12/16/2024 Telephone Gastroenterology - [address] [place] [address] Umair Mendez MD Results from Last 3 Months Surgical History Surgery Date Site/Laterality Comments UTERINE ARTERY EMBOLIZATION uterine suspension. SECTION, LOW TRANSVERSE RAD CERVICAL 5VW 83410 Left cervical radiculopathy, metal in place TONSILLECTOMY CYST REMOVAL 3 on back, 1 on right leg COLONOSCOPY ESOPHAGOGASTRODUODENOSCOPY Medical History Medical History Date Comments Fibromyalgia Vasovagal near syncope Migraines GERD (gastroesophageal reflux disease) Cyst of left kidney MVP (mitral valve prolapse) Developmental venous anomaly fro ntal lobe Asthma Anxiety Diabetes mellitus (CMS/HCC V24, CMS/HCC V28) Depression PTSD (post-traumatic stress disorder) Vocal cord nodule Social History Tobacco Use Types Packs/Day Years Used Date Smoking Tobacco: Former Smokeless Tobacco: Never Alcohol Use Standard Drinks/Week Comments Yes 0 (1 standard drink = 0.6 oz pur e alcohol) social Interpersonal Safety Answer Date Record ed Physical Abuse 12/22/2024 Verbal Abuse 12/22/2024 Comments Unknown Sex and Gender Information Value Date Recorded Sex Assigned at Female 11/18/2024 6:25 PM EST Legal Sex Female 4:11 PM EST Gender Identity Female 11/18/2024 6:25 PM EST Sexual Orientation Not on file Obstetrics History Last Filed Vital Signs Vital Sign Reading Time Taken Comments Blood Pressure 127/76 12/22/2024 3:04 PM EST Pulse 62 12/22/2024 3:04 PM EST Temperature 35.7 ??C (96.3 ??F) 12/22/2024 2:44 PM ES T Respiratory Rate 15 12/22/2024 3:04 PM EST Oxygen Saturation 100% 12/22/2024 3:04 PM EST Inhaled Oxygen Concentration - - Weight 97.1 kg (214 lb) 12/14/2024 3:00 PM EST Height 175.3 cm (5' 9 ) 12/14/2024 3:00 PM EST Body Mass Index 31.6 12/14/2024 3:00 PM EST Plan of Treatment Upcoming Encounters Date Type Department Care Team (Late st Contact Info) Description 03/20/2025 2:40 PM EDT Office Visit [facility] - [address] [place] [phone] Carly Mills, HELEN [address] [place] [address] 04/10/2025 8:50 AM EDT Office Visit Gastroenterology - [address] [facility] [address] [place] [address] Ana Quinones, HELEN 299 [facility] [address] [place] [address] 04/27/2025 10:30 AM EDT Consult Orthopedic Surgery - [place] [address] [facility] [address] [place] [phone] Gautam Martinez DPM 175 [facility] [address] [place] [address] Health Maintenance Due Date Last Done Comments Breast Cancer Screening 1970 DTaP,Tdap,and Td Vaccines (1 - Tdap) 1988 Hepatitis B Vaccines (1 of 3 - 19+ 3-dose series) 1988 Pneumococcal Vaccine: 50+ Years (1 of 2 - PCV) 1988 Pneumococcal Vaccine: Pediatrics (0 to 5 Years) and At-Risk Patients (6 to 64 Years) (1 of 2 - PCV) 1988 Cervical Cancer Screening: P ap Smear 1990 Zoster Vaccines (2 of 2) 04/11/2021 02/14/2021 Colorectal Cancer Screening: Colonoscopy 10/22/2022 Depression Screening 10/22/2022 HIV Screening 10/22/2022 Hepatitis C Screening 10/22/2022 Social Influencers of Health Screening 10/22/2022 COVID-19 Vaccine (1 - 2023-2 5 season) 2024 Influenza Vaccine (Season Ended) 2025 07/29/2020, 09/29/2019 Hypertension/CHF/CAD Annual BMP Blood Test 01/20/2026 01/20/2025, 11/30/2024 Cholesterol Screening (Lipid Panel) 01/20/2030 01/20/2025, 01/10/2023 HIB Vaccines Aged Out No longer eligi ble based on patient's age to complete this topic HPV Vaccines Aged Out No longer eligi ble based on patient's age to complete this topic Hepatitis A Vaccines Aged Out No long er eligible based on patient's age to complete this topic IPV Vaccines Aged Out No longer eligi ble based on patient's age to complete this topic MMR Vaccines Aged Out No longer eligi ble based on patient's age to complete this topic Meningococcal ACWY Vaccine Aged Out N o longer eligible based on patient's age to complete this topic Meningococcal B Vaccine Aged Out No l onger eligible based on patient's age to complete this topic RSV Immunization Patients Under 20 months Aged Out No longer eligible b ased on patient's age to complete this topic Varicella Vaccines Aged Out No longer eligible based on patient's age to complete this topic Procedures Procedure Name Priority Date/Time Associated Diagnosis Comments CBC WITH AUTO DIFFERENTIAL Routine 01/20/2025 2:36 PM EST Hyperlipemia Impaired fasting glucose Screening for thyroid disorder Essential hypertension, malignant Abnormal blood chemistry HEMOGLOBIN A1C Routine 01/20/2025 2:36 PM EST Hyperlipemia Impaired fasting glucose Screening for thyroid disorder Essential hypertension, malignant Abnormal blood chemistry CBC AND DIFFERENTIAL Routine 01/20/2025 2:36 PM EST Hyperlipemia Impaired fasting glucose Screening for thyroid disorder Essential hypertension, malignant Abnormal blood chemistry THYROID STIMULATING HORMONE Routine 01/20/2025 2:36 PM EST Hyperlipemia Impaired fasting glucose Screening for thyroid disorder Essential hypertension, malignant Abnormal blood chemistry BASIC METABOLIC PANEL Routine 01/20/2025 2:36 PM EST Hyperlipemia Impaired fasting glucose Screening for thyroid disorder Essential hypertension, malignant Abnormal blood chemistry CREATINE KINASE Routine 01/20/2025 2:36 PM EST Hyperlipemia Impaired fasting glucose Screening for thyroid disorder Essential hypertension, malignant Abnormal blood chemistry ASPARTATE AMINOTRANSFERASE Routine 01/20/2025 2:36 PM EST Hyperlipemia Impaired fasting glucose Screening for thyroid disorder Essential hypertension, malignant Abnormal blood chemistry ALANINE AMINOTRANSFERASE Routine 025 2:36 PM EST Hyperlipemia Impaired fasting glucose Screening for thyroid disorder Essential hypertension, malignant Abnormal blood chemistry LIPID PANEL WITH REFLEX TO DIRECT LDL Routine 01/20/2025 2:36 PM EST Hyperlipemia Impaired fasting glucose Screening for thyroid disorder Essential hypertension, malignant Abnormal blood chemistry EGD Routine 12/22/2024 2:43 PM EST Epigastric pain GERD (gastroesophageal reflux disease) Nausea and vomiting from Last 3 Months Results * (ABNORMAL) Lipid panel with reflex to direct LDL (01/20/2025 2:36 PM EST) Cholesterol 276(H) 0 - 200 mg/dL LAB CHEMISTRY METHOD 01/20/2025 9:53 PM [facility] Triglycerides 140 0 - 150 mg/dL LAB CHEMISTRY METHOD 01/20/2025 9:53 PM [facility] HDL 55 >=40 mg/dL LAB CHEMISTRY METHOD 01/20/2025 9:53 PM [facility] LDL Calculated 193(H) 0 - 100 mg/dL LAB CHEMISTRY METHOD 01/20/2025 9:53 PM [facility] VLDL Cholesterol Anderson 28 mg/dL LAB CHEMISTRY METHOD 01/20/2025 9:53 PM [facility] Non HDL Chol. (LDL+VLDL) 221(H) <145 mg/dL LAB CHEMISTRY METHOD 01/20/2025 9:53 PM [facility] Chol/HDL Ratio 5.0(H) 0.0 - 4.4 LAB CHEMISTRY METHOD 01/20/2025 9:53 PM [facility] Blood Venous blood specimen / Unknown Venipuncture / Unknown 01/20/2025 2:36 PM EST 01/20/2025 2:36 PM EST Charles Purcell DO LAB BLOOD ORDERABLES Final Re sult [facility] [address] [place] [address], * CBC auto differential (01/20/2025 2:36 PM EST) [facility] Signature WBC 7.0 4.8 - 10.8 K/mcL LAB HEMETOLOGY METHOD 01/20/2025 7:27 PM EST [facility] RBC 4.50 3.80 - 4.80 M/mcL LAB HEMETOLOGY METHOD 01/20/2025 7:27 PM EST [facility] Hemoglobin 13.0 11.5 - 16.0 g/dL LAB HEMETOLOGY METHOD 01/20/2025 7:27 PM [facility] Hematocrit 39.1 35.0 - 47.0 % LAB HEMETOLOGY METHOD 01/20/2025 7:27 PM EST [facility] MCV 86.5 79.0 - 98.0 FL LAB HEMETOLOGY METHOD 01/20/2025 7:27 PM [facility] MCH 28.8 27.0 - 32.0 pcg LAB HEMETOLOGY METHOD 01/20/2025 7:27 PM EST [facility] MCHC 33.2 32.0 - 37.0 g/dL LAB HEMETOLOGY METHOD 01/20/2025 7:27 PM EST [facility] RDW 13.1 11.0 - 15.0 % LAB HEMETOLOGY METHOD 01/20/2025 7:27 PM [facility] Platelets 318 130 - 400 K/mcL LAB HEMETOLOGY METHOD 01/20/2025 7:27 PM [facility] MPV 9.7 7.0 - 11.0 FL LAB HEMETOLOGY METHOD 01/20/2025 7:27 PM [facility] NRBC 0.0 <1.0 % LAB HEMETOLOGY METHOD 01/20/2025 7:27 PM [facility] NRBC Absolute 0.00 <0.10 K/mcL LAB HEMETOLOGY METHOD 01/20/2025 7:27 PM [facility] Neutrophils Relative 58.3 % LAB HEMETOLOGY METHOD 01/20/2025 7:27 PM [facility] Lymphocytes Relative 30.8 % LAB HEMETOLOGY METHOD 01/20/2025 7:27 PM [facility] Monocytes Relative 7.0 % LAB HEMETOLOGY METHOD 01/20/2025 7:27 PM [facility] Eosinophils Relative 2.6 % LAB HEMETOLOGY METHOD 01/20/2025 7:27 PM [facility] Basophils Relative 1.0 % LAB HEMETOLOGY METHOD 01/20/2025 7:27 PM [facility] Immature Granulocytes Relative 0.3 % LAB HEMETOLOGY METHOD 01/20/2025 7:27 PM [facility] Neutrophils Absolute 4.06 1.50 - 7.00 K/mcL LAB HEMETOLOGY METHOD 01/20/2025 7:27 PM [facility] Lymphocytes Absolute 2.15 1.00 - 5.00 K/mcL LAB HEMETOLOGY METHOD 01/20/2025 7:27 PM [facility] Monocytes Absolute 0.49 0.20 - 1.00 K/mcL LAB HEMETOLOGY METHOD 01/20/2025 7:27 PM [facility] Eosinophils Absolute 0.18 0.00 - 0.50 K/mcL LAB HEMETOLOGY METHOD 01/20/2025 7:27 PM [facility] Basophils Absolute 0.07 0.00 - 0.20 K/mcL LAB HEMETOLOGY METHOD 01/20/2025 7:27 PM [facility] Immature Granulocytes Absolute 0.02 0.00 - 0.03 K/mcL LAB HEMETOLOGY METHOD 01/20/2025 7:27 PM EST [facility] Blood Venous blood specimen / Unknown Venipuncture / Unknown 01/20/2025 2:36 PM EST 01/20/2025 2:36 PM EST us Charles Mercadante DO LAB BLOOD ORDERABLES Final Re sult Performing Organization Address City/[facility]/ZIP Co de Phone Number [facility] [address] [place] [address], [place] [phone] * Alanine aminotransferase (01/20/2025 2:36 PM EST) ALT (SGPT) 51 10 - 60 unit/L LAB CHEMISTRY METHOD 01/20/2025 9:19 PM EST [facility] Blood Venous blood specimen / Unknown Venipuncture / Unknown 01/20/2025 2:36 PM EST 01/20/2025 2:36 PM EST us Charles Mercadante DO LAB BLOOD ORDERABLES Final Re sult Performing Organization Address [facility]/ZIP Co de Phone Number [facility] [address] [place] [address], [place] [phone] * Aspartate aminotransferase (01/20/2025 2:36 PM EST) AST (SGOT) 28 10 - 42 unit/L LAB CHEMISTRY METHOD 01/20/2025 9:19 PM EST [facility] Blood Venous blood specimen / Unknown Venipuncture / Unknown 01/20/2025 2:36 PM EST 01/20/2025 2:36 PM EST us Charles Mercadante DO LAB BLOOD ORDERABLES Final Re sult [facility] [address] [place] [address], [place] [phone] * Thyroid stimulating hormone (01/20/2025 2:36 PM EST) Pathologist [facility] TSH 3.18 0.40 - 4.00 mcIU/mL LAB CHEMISTRY METHOD 01/20/2025 9:19 PM EST [facility] Blood Venous blood specimen / Unknown Venipuncture / Unknown 01/20/2025 2:36 PM EST 01/20/2025 2:36 PM EST [facility] LAB BLOOD ORDERABLES Final Re sult [facility] [address] [place] [address], [place] [phone] * Hemoglobin A1c (01/20/2025 2:36 PM EST) [facility] Hemoglobin A1C 6.1 <6.5 % LAB CHEMISTRY METHOD 01/23/2025 9:39 PM EST [facility] Mean Bld Glu Estim. 128 mg/dL LAB CHEMISTRY METHOD 01/23/2025 9:39 PM EST [facility] Blood Venous blood specimen / Unknown Venipuncture / Unknown 01/20/2025 2:36 PM EST 01/20/2025 2:36 PM EST [facility] LAB BLOOD ORDERABLES Final Re sult [facility] [address] [place] [address], [place] [phone] * Creatine kinase (01/20/2025 2:36 PM EST) [facility] Total CK 37 22 - 269 unit/L LAB CHEMISTRY METHOD 01/20/2025 9:53 PM EST [facility] Blood Venous blood specimen / Unknown Venipuncture / Unknown 01/20/2025 2:36 PM EST 01/20/2025 2:36 PM EST us Charles Purcell DO LAB BLOOD ORDERABLES Final Re sult [facility] [address] [place] [address], [place] [phone] * Basic metabolic panel (01/20/2025 2:36 PM EST) Sodium 135 133 - 145 mmol/L LAB CHEMISTRY METHOD 01/20/2025 9:53 PM [facility] Potassium 4.1 3.5 - 5.5 mmol/L LAB CHEMISTRY METHOD 01/20/2025 9:53 PM [facility] Chloride 102 96 - 110 mmol/L LAB CHEMISTRY METHOD 01/20/2025 9:53 PM [facility] CO2 28 21 - 32 mmol/L LAB CHEMISTRY METHOD 01/20/2025 9:53 PM [facility] Anion Gap 5 3 - 11 LAB CHEMISTRY METHOD 01/20/2025 9:53 PM [facility] Glucose 83 70 - 100 mg/dL LAB CHEMISTRY METHOD 01/20/2025 9:53 PM [facility] BUN 18 5 - 25 mg/dL LAB CHEMISTRY METHOD 01/20/2025 9:53 PM [facility] Creatinine 0.82 0.50 - 1.10 mg/dL LAB CHEMISTRY METHOD 01/20/2025 9:53 PM [facility] eGFR 85 >=60 mL/min/1. 73m2 LAB CHEMISTRY METHOD 01/20/2025 9:53 PM [facility] Comment:Calculation based on the??Chronic Kidney Disease Epidemiology Collaboration (CKD-EPI) equation refit??without adjustment for race. BUN/Creatinine Ratio 22.0 LAB CHEMISTRY METHOD 01/20/2025 9:53 PM [facility] Calcium 9.6 8.5 - 10.5 mg/dL LAB CHEMISTRY METHOD 01/20/2025 9:53 PM EST [facility] Blood Venous blood specimen / Unknown Venipuncture / Unknown 01/20/2025 2:36 PM EST 01/20/2025 2:36 PM EST us Charles Purcell DO LAB BLOOD ORDERABLES Final Re sult [facility] ([facility]) [facility] [address] [place] [address], * EGD Anesthesia - MAC; [facility] ENDOSCOPY (12/22/2024 2:43 PM EST) Anatomical Region Laterality Modality Endoscopy 12/22/2024 2:26 PM EST Impressions 12/22/2024 2:44 PM EST - Normal esophagus. ? - Normal stomach. ? - Normal examined duodenum. ? - No specimens collected. Recommendation: ?- Continue present medications. Narrative 12/22/2024 2:44 PM EST [facility] GI Patient Name: Cinthya Silvestre Procedure Date: 12/22/2024 2:26 PM Date of : 1970 Age: 54 Room: ROOM 16 Gender: Female Note Status: Finalized Attending MD: Umair Mendez MD, Procedure Date No Time: 12/22/2024 Procedure: ? Upper GI endoscopy Indications: ? Epigastric abdominal pain, Nausea with vomiting Providers: ? Umair Mendez MD Referring MD: ?Umair Mendez MD Medicines: ? Propofol per Anesthesia Complications: ? No immediate complications. Estimated Blood Loss: ? Estimated blood loss: none. Procedure: ? Pre-Anesthesia Assessment: ? - ASA Grade Assessment: II - A patient with mild ? systemic disease. ? After obtaining informed consent, the endoscope was ? passed under direct vision. Throughout the procedure, ? the patient's blood pressure, pulse, and oxygen ? saturations were monitored continuously.The Endoscope ? was introduced through the mouth, and advanced to the ? second part of duodenum. The upper GI endoscopy was ? accomplished without difficulty. The patient tolerated ? the procedure well. Findings: ?The esophagus was normal. ? The stomach was normal. ? The examined duodenum was normal. Procedure Code(s): ? --- Professional --- ? 00499, Esophagogastroduodenoscopy, flexible, ? transoral; diagnostic, including collection of ? specimen(s) by brushing or washing, when performed ? (separate procedure) Diagnosis Code(s): ? --- Professional --- ? R10.13, Epigastric pain ? R11.2, Nausea with vomiting, unspecified CPT copyright 2020 [employer]. All rights reserved. The codes documented in this report are preliminary and upon nurse chemical dependency review may be revised to meet current compliance requirements. Umair Mendez MD 12/22/2024 2:44:45 PM This report has been signed electronically.Umair Mendez MD Number of Addenda: 0 Note Initiated On: 12/22/2024 2:26 PM Scope In: Scope Out: ? Endoscopy Department at [facility] - [address] [place] [address], ? [place] [address] Procedure Note Umair Mendez MD - 12/22/2024 [facility] GI Patient Name: Cinthya Silvestre Procedure Date: 12/22/2024 2:26 PM Date of : 1970 Age: 54 Room: ROOM 16 Gender: Female Note Status: Finalized Attending MD: Umair Mendez MD, Procedure Date No Time: 12/22/2024 Procedure: Upper GI endoscopy Indications: Epigastric abdominal pain, Nausea with vomiting Providers: Umair Mendez MD Referring MD: Umair Mendez MD Medicines: Propofol per Anesthesia Complications: No immediate complications. Estimated Blood Loss: Estimated blood loss: none. Procedure: Pre-Anesthesia Assessment: - ASA Grade Assessment: II - A patient with mild systemic disease. After obtaining informed consent, the endoscope was passed under direct vision. Throughout theprocedure, the patient's blood pressure, pulse, and oxygen saturations were monitored continuously.TheEndoscope was introduced through the mouth, and advanced tothe second part of duodenum. The upper GI endoscopy was accomplished without difficulty. The patienttolerated the procedure well. Findings: The esophagus was normal. The stomach was normal. The examined duodenum was normal. Procedure Code(s): --- Professional --- 51826, Esophagogastroduodenoscopy, flexible, transoral; diagnostic, including collection of specimen(s) by brushing or washing, when performed (separate procedure) Diagnosis Code(s): --- Professional --- R10.13, Epigastric pain R11.2, Nausea with vomiting, unspecified CPT copyright 2020 [employer]. All rights reserved. The codes documented in this report are preliminary and upon nurse chemical dependency reviewmay be revised to meet current compliance requirements. Umair Mendez MD 12/22/2024 2:44:45 PM This report has been signed electronically.Umair Mendez MD Number of Addenda: 0 Note Initiated On: 12/22/2024 2:26 PM Scope In: Scope Out: Endoscopy Department at [address] [phone] IMPRESSION: - Normal esophagus. - Normal stomach. - Normal examined duodenum. - No specimens collected. Recommendation: - Continue present medications. Umair Mendez MD GI~PROCEDURE ORDERABLES Fin al Result from Last 3 Months Insurance [facility] [place] [id number] Care Teams Clearing Hand Relationship Specialty Start Date End Date Charles Purcell DO [address] [place] [phone] PCP - General Internal Medicine 02/28/13
== END 2025-03-14 14:37 | disposition home or self-care (01) ==
PROVIDERS: PCP Internal Medicine; Visit Provider Nurse Practitioner Family
DX: J45.909 Unspecified asthma, uncomplicated (principal); Z87.891 Personal history of nicotine dependence; R40.0 Somnolence
CPT/HCPCS: 99214

== ENCOUNTER → 2025-03-14 13:34 | Outpatient (BNVA) | payer OTHER, SELFPAY | PROVIDERS: PCP Internal Medicine; Visit Provider Nurse Practitioner Family | DX: J45.909 Unspecified asthma, uncomplicated (principal); R40.0 Somnolence; Z87.891 Personal history of nicotine dependence | CPT/HCPCS: 99212 ==

== ENCOUNTER 2025-04-05 10:11 | Outpatient (AMB) | payer OTHER, SELFPAY ==
--- NOTE | 2025-04-05 10:03 | A.OFFVIS_ITS ---
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 Accompanied by: Self / Same As Patient Allergies methylphenidate Allergy (Intermediate, Verified 04/05/25 10:04) Migraine escitalopram [From Lexapro] Allergy (Mild, Verified 04/05/25 10:04) Irritable benzonatate Allergy (Unknown, Verified 04/05/25 10:04) Unknown carisoprodol [Soma] Allergy (Unknown, Verified 04/05/25 10:04) Unknown celecoxib [Celebrex] Allergy (Unknown, Verified 04/05/25 10:04) Unknown codeine Allergy (Unknown, Verified 04/05/25 10:04) Unknown hydroxyzine Allergy (Unknown, Verified 04/05/25 10:04) Unknown lamotrigine [Lamictal] Allergy (Unknown, Verified 04/05/25 10:04) Unknown milnacipran [Savella] Allergy (Unknown, Verified 04/05/25 10:04) Unknown naproxen [Naprosyn] Allergy (Unknown, Verified 04/05/25 10:04) Unknown prednisone Allergy (Unknown, Verified 04/05/25 10:04) Unknown pregabalin Allergy (Unknown, Verified 04/05/25 10:04) Unknown rizatriptan [Maxalt] Allergy (Unknown, Verified 04/05/25 10:04) Unknown Sulfa (Sulfonamide Antibiotics) Allergy (Unknown, Verified 04/05/25 10:04) Unknown sulfacetamide Allergy (Unknown, Verified 04/05/25 10:04) Unknown tetracycline Allergy (Unknown, Verified 04/05/25 10:04) Unknown tramadol Allergy (Unknown, Verified 04/05/25 10:04) Unknown amitriptyline Allergy (Verified 04/05/25 10:04) Unknown environmental allergies Allergy (Verified 04/05/25 10:04) Unknown ibuprofen Allergy (Verified 04/05/25 10:04) Unknown latex Allergy (Verified 04/05/25 10:04) Unknown lavender (Lavandula angustifolia) Allergy (Verified 04/05/25 10:04) Unknown NSAIDS (Non-Steroidal Anti-Inflamma Allergy (Verified 04/05/25 10:04) Unknown adhesives Allergy (Intermediate, Uncoded 03/14/25 13:55) itchy rash Erythromycin Allergy (Unknown, Uncoded 03/14/25 13:55) Unknown Wellbutrin Allergy (Unknown, Uncoded 03/14/25 13:55) Unknown Medication List - Last Reconciled 04/05/25 by DOMINGUEZ Morales albuterol sulfate 90 mcg/actuation (ProAir RespiClick) 2 inhalations inhalation Q4-6H PRN atomoxetine 80 mg PO DAILY atomoxetine (Strattera) 80 mg PO QAM atorvastatin 20 mg PO BEDTIME [Bilateral Cubital Tunnel Elbow Brace Use when sleeping.] camphor-methyl salicyl-menthol 3.1-10-6 % (Pain Relieving (camphor-m.salicyl-menth)) 1 patch topical BID-TID PRN 30 days carvedilol PO carvedilol 3.125 mg PO BID cholecalciferol (vitamin D3) 250 mcg PO DAILY cyclobenzaprine 5 mg PO TID PRN 30 days fexofenadine (Amanda Allergy) 180 mg PO Q24H fluticasone furoate-vilanterol 200-25 mcg/dose (Breo Ellipta) 1 inh inhalation DAILY galcanezumab-gnlm (Emgality Pen) 120 mg subcut ONCE 30 days glucosamine MEn-roi-qxqtpzysaa 400-200-333 mg 1 tab orally; give with meal/snack imiquimod 5% topical ipratropium bromide 2 sprays intranasal BID ipratropium-albuterol 0.5 mg-3 mg(2.5 mg base)/3 mL 3 mL inhalation Q4-6H PRN 30 days pantoprazole 40 mg PO DAILY quetiapine 25 mg PO BEDTIME rimegepant (Nurtec ODT) 75 mg PO ONCE PRN 30 days MDD 1 sertraline 100 mg PO HPI Comments Details: 54-yr-old female presents for f/u televideo visit via [employer]. Pt reports last Thursday, she had a flare-up of left hip and femur pain, which she thinks was triggered by wearing a new pair of wedged shoes while going to an [employer]- and felt a twinge as she got in and out of [facility] car. Describes the left hip and femur pain as significant aching pain (not sciatica) and some lateral thigh numbness (w/o tingling) at worst down to the knee- has had this before on her right side, which made it difficult to sit and walk- needed to use 1 crutch to ambulate. She did use an old prescription prednisone 10mg- she took this 4-5 days but not consecutively. She is also taking her muscle relaxer and her chondroitin. The pain has started to slowly resolve, as if it slowly regressing back but there is still the the left thigh numbness upon touch, achiness, muscle twitching. She has slowly come off using the crutches- as prolonged use can aggravate her back s/s. She is able to walk to the store, but very slowly. This recent bout of left hip pain was not as severe as her typical ostepenia pain. She notes her osteopenia has been better with starting vitamin-D and costochondritis therapy. PCP follows her bone density scans She is also having more left knee pain- feels this is due to favoring her right knee/leg. She has previously seen [facility]. She has a f/u w/ Dr Cota to f/u on this. Pt reports she had occasional flare-ups of her xbvs-ptrsprlb-xetvjt paraspinal muscle spasms and a burning and spreading/pulsating pain. She can have episodes where she starts to feel a flare-up coming on- and she starts to take the cyclobenzaprine typically at night as it causes sleepiness, but occasionally during the day as well. She is curious about re-trying gabapentin- no set at doses of 2000 mg she did have some mood changes. She continues to do better with her migraine attacks. She continues on Emgality with good effect. She is now having < 3 migraine days per week, decreased from previous daily migraine. Nurtec 75mg ODT prn is helpful. [facility] Medical History Disorder of uterus Migraine Bruxism Spasmodic torticollis Vasovagal syncope Palpitations Arrhythmia Cervicalgia Tendinitis GERD (gastroesophageal reflux disease) TMJ dysfunction Scoliosis Plantar fasciitis Myofascial pain syndrome Fibromyalgia Surgical History Hx of neck surgery History of uterine suspension procedure History of section Hx of tonsillectomy Family History Father Stroke HTN (hypertension) Migraine Dementia Mother HTN (hypertension) DM (diabetes mellitus) Spina bifida Neuropathy H/O fibromyalgia TMJ (dislocation of temporomandibular joint) Paternal Uncle Stroke Paternal Aunt Stroke Paternal Grandfather Stroke Social History Household Members: Children Household Members Other:: adult Alcohol intake: current Alcohol intake frequency: does not drink Patient Tobacco Use Status: Former Tobacco user Tobacco use type: Cigarette Cigarette Packs Per Day: 1 Cigarettes Per Day: 20 Years Smoked: approx 20 Current occupational status: disabled Physical Exam Const General: cooperative and no acute distress Orientation/consciousness: patient oriented x3 Resp Effort & Inspection: normal respiratory effort and able to speak in complete sentences Neuro General: patient oriented x3 Cognition (Neuro): normal cognition Psych Appearance: grossly normal Mental Status: mental status grossly normal Speech and movement: Normal speech and movement present Affect: normal affect Attitude: cooperative Telehealth Telehealth Telehealth Platform: [employer] Location of provider rendering services: practice address Location of patient: address on file Patient Identification confirmed using: Name, : Yes Telehealth method: video Patient verbally consented to treatment: Yes Patient verbally consented to billing insurance company: Yes Patient informed of any privacy concerns related to visit: Yes Minutes spent on Phone/Video with Pt.: 35 Assessment & Plan Assessment & Plan (1) Migraine: Code(s): G43.909 - Migraine, unspecified, not intractable, without status migrainosus Category: Medical Qualifiers: Migraine type: migraine (< 15 days per month) without aura Status migrainosus presence: without status migrainosus Intractability: not intractable Qualified Code(s): G43.009 - Migraine without aura, not intractable, without status migrainosus (2) Cervicalgia: Code(s): M54.2 - Cervicalgia Category: Medical (3) Muscle spasm: Code(s): M62.838 - Other muscle spasm Category: Medical (4) Fibromyalgia: Code(s): M79.7 - Fibromyalgia Category: Medical (5) Low back pain: Code(s): M54.50 - Low back pain, unspecified Category: Medical (6) Left hip pain: Code(s): M25.552 - Pain in left hip Category: Medical Plan For recent left hip pain and left thigh numbness, and chronic muscle spasms, neck pain, back pain, fibromyalgia, BUE paresthesias: Trial gabapentin 100 mg cap, 1-3 caps daily at bedtime as needed for muscle spasms and neuralgic pain. Patient advised to monitor for drowsiness and mood changes. Continue Cyclobenzaprine 5mg tid, may occasionally take 10mg. Continue topical patches or biofreeze prn. Previously advised to trial BUE cubital tunnel splints while sleeping. Continue walking, paced activity. Advised to follow-up with ortho, [facility]. Follow-up with Dr. Vieira as scheduled. For migraine prevention: Continue Emgality 120mg sc q month, as patient has greater than 30% reduction in migraine burden. Previous migraine trials: Verapamil, Amitriptyline, Imitrex- which have not helped. Topiramate- caused tingling. 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 Preventive migraine tx contraindications: BBs d/t asthma dx. ? For acute migraine treatment: Continue Nurtec ODT 75mg 1 tab qd prn onset of migraine. Previous acute migraine trials- triptans- d/t causes severe bothersome paresthesias. ? For cognitive dysfunction- Continue Strattera- managed by [facility].. ? ? f/u in 6 months or sooner prn Medications: New gabapentin 100 - 300 mg (1 - 3 x 100 mg) PO BEDTIME 30 days PRN 90 caps 0RF muscle spasm and nerve pain Changed From galcanezumab-gnlm (Emgality Pen) maintenance dose 120mg sc q month. 120 mg subcut ONCE 30 days 1 mL 6RF G43.909 - Migraine, unspecified, not intractable, without status migrainosus To galcanezumab-gnlm (Emgality Pen) maintenance dose 120mg sc q month. PA approved 02/16/2025- 05/19/2025 120 mg subcut ONCE 30 days 1 mL 6RF G43.909 - Migraine, unspecified, not intractable, without status migrainosus Coding Level of Care Code Tele Est Pt Level 4 (11709) Diagnoses Migraine without aura and without status migrainosus, not intractable G43.009 Migraine type: migraine (< 15 days per month) without aura Status migrainosus presence: without status migrainosus Intractability: not intractable Cervicalgia M54.2 Muscle spasm M62.838 Fibromyalgia M79.7 Low back pain M54.50 Left hip pain M25.552
--- OUTSIDE RECORDS SUMMARY | 2025-04-05 11:11 | XMS_ITS | Clinical Summary ---
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 4 Active [id number] -HYAL-ANTIARTH3 ORAL Take by mouth. Activ e [...] Type Department Care Team Description 02/24/2025 Telephone [facility] - [address] [facility] [address] [place] [address] Renny Aguiar MD No Show 02/15/2025 Telephone Gastroenterology - [address] [facility] [address] [place] [address] Umair Mendez MD from Last 3 Months Surgical History Surgery Date Site/Laterality Comments UTERINE ARTERY EMBOLIZATION uterine suspension. SECTION, LOW TRANSVERSE RAD CERVICAL [id number] [id number] Left cervical radiculopathy, metal in place TONSILLECTOMY [...] Care Team (Late st Contact Info) Description 04/06/2025 10:40 AM EDT Office Visit [facility] - [facility] [address] [facility] [address] [place] [address] Carly Mills NP [address] [place] [address] 04/10/2025 8:50 AM EDT Office Visit Gastroenterology - [address] [facility] [address] [place] [phone] Ana Quinones NP [address] [facility] [address] [place] [address] 04/27/2025 10:30 AM EDT Consult Orthopedic Surgery - [place] [address] [facility] [address] [place] [phone] Gautam Martinez, DPGrover [address] [address] Health Maintenance Due Date Last Done Comments [...] Influencers of Health Screening 10/22/2022 COVID-19 Vaccine ( - 2023-2 5 season) 2024 Influenza Vaccine [...] disorder Essential hypertension, malignant Abnormal blood chemistry from Last 3 Months Results * (ABNORMAL) Lipid panel with reflex to direct LDL (01/20/2025 2:36 PM EST) [facility] Cholesterol 276(H) 0 - 200 mg/dL LAB CHEMISTRY METHOD 01/20/2025 9:53 PM EST [facility] Triglycerides 140 0 - 150 mg/dL LAB CHEMISTRY METHOD 01/20/2025 9:53 PM EST [facility] HDL 55 >=40 mg/dL LAB CHEMISTRY METHOD 01/20/2025 9:53 PM [facility] LDL Calculated 193(H) 0 - 100 mg/dL LAB CHEMISTRY METHOD 01/20/2025 9:53 PM [facility] VLDL Cholesterol Anderson 28 mg/dL LAB CHEMISTRY METHOD 01/20/2025 9:53 PM [facility] Non HDL Chol. (LDL+VLDL) 221(H) <145 mg/dL LAB CHEMISTRY METHOD 01/20/2025 9:53 PM [facility] Chol/HDL Ratio 5.0(H) 0.0 - 4.4 LAB CHEMISTRY METHOD 01/20/2025 9:53 PM [facility] Blood Venous blood specimen / Unknown Venipuncture / Unknown 01/20/2025 2:36 PM EST 01/20/2025 2:36 PM EST us Charles Purcell DO LAB BLOOD ORDERABLES Final Re sult [facility] [address] [place] [address], * CBC auto differential (01/20/2025 2:36 PM EST) WBC 7.0 4.8 - 10.8 K/mcL LAB HEMETOLOGY METHOD 01/20/2025 7:27 PM [facility] RBC 4.50 3.80 - 4.80 M/mcL LAB HEMETOLOGY METHOD 01/20/2025 7:27 PM [facility] Hemoglobin 13.0 11.5 - 16.0 g/dL LAB HEMETOLOGY METHOD 01/20/2025 7:27 PM [facility] Hematocrit 39.1 35.0 - 47.0 % LAB HEMETOLOGY METHOD 01/20/2025 7:27 PM [facility] MCV 86.5 79.0 - 98.0 FL LAB HEMETOLOGY METHOD 01/20/2025 7:27 PM [facility] MCH 28.8 27.0 - 32.0 pcg LAB HEMETOLOGY METHOD 01/20/2025 7:27 PM [facility] MCHC 33.2 32.0 - 37.0 g/dL LAB HEMETOLOGY METHOD 01/20/2025 7:27 PM [facility] RDW 13.1 11.0 - 15.0 % LAB HEMETOLOGY METHOD 01/20/2025 7:27 PM [facility] Platelets 318 130 - 400 K/mcL LAB HEMETOLOGY METHOD 01/20/2025 7:27 PM [facility] MPV 9.7 7.0 - 11.0 FL LAB HEMETOLOGY METHOD 01/20/2025 7:27 PM [facility] NRBC 0.0 <1.0 % LAB HEMETOLOGY METHOD 01/20/2025 7:27 PM [facility] NRBC Absolute 0.00 <0.10 K/mcL LAB HEMETOLOGY METHOD 01/20/2025 7:27 PM [facility] Neutrophils Relative 58.3 % LAB HEMETOLOGY METHOD 01/20/2025 7:27 PM [facility] Lymphocytes Relative 30.8 % LAB HEMETOLOGY METHOD 01/20/2025 7:27 PM [facility] Monocytes Relative 7.0 % LAB HEMETOLOGY METHOD 01/20/2025 7:27 PM [facility] Eosinophils Relative 2.6 % LAB HEMETOLOGY METHOD 01/20/2025 7:27 PM [facility] Basophils Relative 1.0 % LAB HEMETOLOGY METHOD 01/20/2025 7:27 PM [facility] Immature Granulocytes Relative 0.3 % LAB HEMETOLOGY METHOD 01/20/2025 7:27 PM EST [facility] Neutrophils Absolute 4.06 1.50 - 7.00 K/[facility] LAB HEMETOLOGY METHOD 01/20/2025 7:27 PM [facility] Lymphocytes Absolute 2.15 1.00 - 5.00 K/mcL LAB HEMETOLOGY METHOD 01/20/2025 7:27 PM EST [facility] Monocytes Absolute 0.49 0.20 - 1.00 K/[facility] LAB HEMETOLOGY METHOD 01/20/2025 7:27 PM [facility] Eosinophils Absolute 0.18 0.00 - 0.50 K/[facility] LAB HEMETOLOGY METHOD 01/20/2025 7:27 PM [facility] Basophils Absolute 0.07 0.00 - 0.20 K/mcL LAB HEMETOLOGY METHOD 01/20/2025 7:27 PM EST [facility] Immature Granulocytes Absolute 0.02 0.00 - 0.03 K/[facility] LAB HEMETOLOGY METHOD 01/20/2025 7:27 PM EST [facility] Blood Venous blood specimen / Unknown Venipuncture / Unknown 01/20/2025 2:36 PM EST 01/20/2025 2:36 PM EST us Charles Purcell DO LAB BLOOD ORDERABLES Final Re sult [facility] [address] [place] [address], * Alanine aminotransferase (01/20/2025 2:36 PM EST) ALT (SGPT) 51 10 - 60 unit/L LAB CHEMISTRY METHOD 01/20/2025 9:19 PM EST [facility] Blood Venous blood specimen / Unknown Venipuncture / Unknown 01/20/2025 2:36 PM EST 01/20/2025 2:36 PM EST [facility] BLOOD ORDERABLES Final Re sult Performing Organization Address City/[facility]/ZIP Co de Phone Number [facility] [address] [place] [address], [place] [phone] * Aspartate aminotransferase (01/20/2025 2:36 PM EST) [facility] AST (SGOT) 28 10 - 42 unit/L LAB CHEMISTRY METHOD 01/20/2025 9:19 PM EST [facility] Blood Venous blood specimen / Unknown Venipuncture / Unknown 01/20/2025 2:36 PM EST 01/20/2025 2:36 PM EST [facility] BLOOD ORDERABLES Final Re sult Performing Organization Address [facility]/ZIP Co de Phone Number [facility] [address] [place] [address], [place] [phone] * Thyroid stimulating hormone (01/20/2025 2:36 PM EST) [facility] TSH 3.18 0.40 - 4.00 mcIU/mL LAB CHEMISTRY METHOD 01/20/2025 9:19 PM EST [facility] Blood Venous blood specimen / Unknown Venipuncture / Unknown 01/20/2025 2:36 PM EST 01/20/2025 2:36 PM EST [facility] LAB BLOOD ORDERABLES Final Re sult Performing Organization Address City/[facility]/ZIP Co de Phone Number [facility] [address] [place] [address], [place] [phone] * Hemoglobin A1c (01/20/2025 2:36 PM EST) [facility] Hemoglobin A1C 6.1 <6.5 % LAB CHEMISTRY METHOD 01/23/2025 9:39 PM [facility] Mean Bld Glu Estim. 128 mg/dL LAB CHEMISTRY METHOD 01/23/2025 9:39 PM [facility] Blood Venous blood specimen / Unknown Venipuncture / Unknown 01/20/2025 2:36 PM EST 01/20/2025 2:36 PM EST [facility] LAB BLOOD ORDERABLES Final Re sult Performing Organization Address City/[facility]/ZIP Co de Phone Number [facility] [address] [place] [address], [place] [phone] * Creatine kinase (01/20/2025 2:36 PM EST) Total CK 37 22 - 269 unit/L LAB CHEMISTRY METHOD 01/20/2025 9:53 PM [facility] Blood Venous blood specimen / Unknown Venipuncture / Unknown 01/20/2025 2:36 PM EST 01/20/2025 2:36 PM EST [facility] LAB BLOOD ORDERABLES Final Re sult Performing Organization Address [facility]/ZIP Co de Phone Number [facility] [address] [place] [address], [place] [phone] * Basic metabolic panel (01/20/2025 2:36 PM EST) Sodium 135 133 - 145 mmol/L LAB CHEMISTRY METHOD 01/20/2025 9:53 PM [facility] Potassium 4.1 3.5 - 5.5 mmol/L LAB CHEMISTRY METHOD 01/20/2025 9:53 PM [facility] Chloride 102 96 - 110 mmol/L LAB CHEMISTRY METHOD 01/20/2025 9:53 PM [facility] CO2 28 21 - 32 mmol/L LAB CHEMISTRY METHOD 01/20/2025 9:53 PM [facility] Anion Gap 5 3 - 11 LAB CHEMISTRY METHOD 01/20/2025 9:53 PM [facility] Glucose 83 70 - 100 mg/dL LAB CHEMISTRY METHOD 01/20/2025 9:53 PM [facility] BUN 18 5 - 25 mg/dL LAB CHEMISTRY METHOD 01/20/2025 9:53 PM [facility] Creatinine 0.82 0.50 - 1.10 mg/dL LAB CHEMISTRY METHOD 01/20/2025 9:53 PM [facility] eGFR 85 >=60 mL/min/1. 73m2 LAB CHEMISTRY METHOD 01/20/2025 9:53 PM [facility] Comment:Calculation based on the??Chronic Kidney Disease Epidemiology Collaboration (CKD-EPI) equation refit??without adjustment for race. BUN/Creatinine Ratio 22.0 LAB CHEMISTRY METHOD 01/20/2025 9:53 PM [facility] Calcium 9.6 8.5 - 10.5 mg/dL LAB CHEMISTRY METHOD 01/20/2025 9:53 PM [facility] Blood Venous blood specimen / Unknown Venipuncture / Unknown 01/20/2025 2:36 PM EST 01/20/2025 2:36 PM EST us Charles Purcell DO LAB BLOOD ORDERABLES Final Re sult [facility] [address] [place] [address], from Last [address] [facility] [place] [address] Care Teams Dry Wall Applicator Relationship Specialty Start Date End Date Charles Purcell DO [address] [place] [address] [phone] PCP - General Internal Medicine 02/28/13
== END 2025-04-10 08:18 | disposition home or self-care (01) ==
LOC: HO.HSMS 10:11
PROVIDERS: PCP Internal Medicine; Visit Provider Nurse Practitioner Family
DX: G43.009 Migraine without aura, not intractable, without status migrainosus (principal); M54.2 Cervicalgia; M62.838 Other muscle spasm; M79.7 Fibromyalgia; M54.50 Low back pain, unspecified; M25.552 Pain in left hip
CPT/HCPCS: 99214

== ENCOUNTER → 2025-05-30 09:40 | Outpatient (REF) | payer OTHER, SELFPAY ==
--- OUTSIDE RECORDS SUMMARY | 2025-05-30 10:10 | XMS_ITS | Clinical Summary ---
Author Organization [address] [place] [address] [place] [phone] Phone Care Team Providers Care Decorator [employer] Name Role Phone Charles Purcell DO Primary Care Provider Allergies Active Allergy Reactions Criticality Noted Date [...] Rash 01/24/2021 Bupropion Hcl Unknown 12/14/2024 Medications CHOLECALCIFEROL , VITAMIN D3, ORAL Take 250 mcg by mouth 1 (one) time each day. Active DIPHENHYDRAMINE HCL ORAL Take by mouth. Activ e multivit-min/ir on/FA/vit K/lut (CENTRUM SILVER WOMEN ORAL) Take by mouth. Act adrienne ZINC ORAL Take by mouth 3 (three) times a day. Active albuterol sulfate (ProAir RespiClick) 90 mcg/actuation aerosol powdr breath activated Inhale into the lungs. Active cyclobenzaprine (FLEXERIL) 5 mg tablet Take [...] mouth 1 (one) time each day. Active QUEtiapine (SEROquel) 25 mg tablet Take [...] 1 packet topically if needed. 4 Active [id number] -HYAL-ANTIARTH3 ORAL Take by mouth. Activ e olopatadine (PATANOL) 0.1 % ophthalmic solution Administer 1 drop into both eyes if needed for allergies. Active gabapentin (NEURONTIN) 100 mg capsule Take 1 capsule (100 mg total) by mouth 3 (three) times a day. Active atomoxetine (STRATTERA) 80 mg capsule Take 1 capsule (80 mg total) by mouth 1 (one) time each day. Swallow capsule whole; do not open. If opened accidentally, do not touch eyes; wash hands immediately (product is an eye irritant). Active fluticasone furoate-vilante roL (Breo Ellipta) 200-25 mcg/dose inhaler Inhale by mouth. Act adrienne atorvastatin (LIPITOR) 40 mg tablet Take 1 tablet (40 mg total) by mouth at bedtime. 90 tablet 3 Active carvediloL (COREG) 3.125 mg tablet Take 1 tablet (3.125 mg total) by mouth 2 (two) times a day with meals. 180 tablet 3 Active diclofenac (Voltaren Arthritis Pain) 1 % topical gel Apply 4 g topically 2 (two) times a day. 240 g 1 5 06/26/20 Active Active Problems Problem Noted Date Diagnosed Date Nonrheumatic mitral valve regurgitation 04/06/20 Assessment & Plan (04/06/2025 11:25 AM EDT): Mild mitral annular calcification with mild mitral regurgitation seen on last echocardiogram in January 2024. I will update an echocardiogram to reassess cardiac function and structures. Fatigue 12/17/2023 Overview (11/02/2024): Last Assessment & Plan: Last echo was in 2016 and was essentially normal. She does not have heart failure or significant murmur. Repeat echocardiogram. Abnormal EKG 11/27/2022 Overview (11/02/2024): Last Assessment & Plan: Her coronary artery is normal without atherosclerotic lesions. Will continue primary prevention. Her heart rate slightly on higher side today and frequently she had a higher heart rate, I will initiate low-dose metoprolol and increase dose as tolerated. Assessment & Plan (04/06/2025 11:24 AM EDT): EKG done in the office today shows sinus rhythm with nonspecific T wave abnormality. Rate controlled at 67 bpm. She had a normal coronary artery CTA in February 2024. She is feeling better on carvedilol and she will continue on carvedilol as prescribed. Hyperlipidemia 11/27/2022 Overview (11/02/2024): Last Assessment & Plan: Most recent LDL was 144 and she has no atherosclerotic coronary artery lesions. Will hold off statin therapy. Assessment & Plan (04/06/2025 11:23 AM EDT): Most recent lipid panel reviewed and not well-controlled with an LDL of 193. I will increase atorvastatin to 40 mg daily and have patient recheck fasting lipid panel in 8 weeks. Continue with efforts to follow a low fat, heart healthy diet, increase exercise and maintain a healthy weight to maximize risk reduction. Asthma 01/24/2021 Seasonal allergies 01/24/2021 Vasovagal syndrome 01/24/2021 Encounters Date Type Department Care Team Description 04/27/2025 10:30 AM EDT Consult Orthopedic Surgery - [place] [address] [facility] [address] [place] [phone] Gautam Martinez DPM Pain in right foot (Primary Dx); Equinus contracture of right ankle; Lumbosacral radiculopathy 04/10/2025 8:50 AM EDT Office Visit Gastroenterology - [address] [facility] [address] [place] [phone] Ana Quinones NP Gastroesophageal reflux disease, unspecified whether esophagitis present (Primary Dx); JOHNSON (nonalcoholic steatohepatitis); Colon cancer screening 04/06/2025 10:40 AM EDT Office Visit [facility] [address] [facility] [address] [place] [phone] Carly Mills NP Hyperlipidemia, unspecified hyperlipidemia type (Primary Dx); Abnormal EKG; Nonrheumatic mitral valve regurgitation from Last 3 Months Surgical History Surgery Date Site/Laterality Comments UTERINE ARTERY EMBOLIZATION uterine suspension. SECTION, LOW TRANSVERSE RAD CERVICAL 5VW 90000 Left cervical radiculopathy, metal in place TONSILLECTOMY [...] Sign Reading Time Taken Comments Blood Pressure 130/80 04/06/2025 10:33 AM EDT Pulse 67 04/06/2025 10:33 AM EDT Temperature 35.7 C (96.3 F) 12/22/2024 2:44 PM EST Respiratory Rate 15 12/22/2024 3:04 PM EST Oxygen Saturation 98% 04/06/2025 10:33 AM EDT Inhaled Oxygen Concentration - - Weight 98.9 kg (218 lb) 04/27/2025 10:22 AM EDT Height 175.3 cm (5' 9.02 ) 04/27/2025 10:22 AM E DT Body Mass Index 32.18 04/27/2025 10:22 AM EDT Plan of Treatment Upcoming Encounters Date Type Department Care Team (Late st Contact Info) Description 07/12/2025 10:30 AM EDT Ancillary Procedure [facility] [address] 300 [facility] [address] [place] [address] Health Maintenance Due Date Last Done Comments Breast Cancer Screening 1969 DTaP,Tdap,and Td Vaccines (1 - Tdap) 1988 Hepatitis B Vaccines (1 of 3 - 19+ 3-dose series) 1988 Pneumococcal Vaccine: 50+ Years (1 of 2 - PCV) 1988 Cervical Cancer Screening: P ap Smear 1990 Zoster Vaccines (2 of 2) 04/11/2021 02/14/2021 Colorectal Cancer Screening: Colonoscopy 10/22/2022 Depression Screening 10/22/2022 HIV Screening 10/22/2022 Hepatitis C Screening 10/22/2022 Social Influencers of Health Screening 10/22/2022 COVID-19 Vaccine (1 - 2023-2 5 season) 2024 Influenza Vaccine (#1) 2025 0, 09/29/2019 Hypertension/CHF/CAD Annual BMP Blood Test 01/20/2026 [...] Procedure Name Priority Date/Time Associated Diagnosis Comments ECG 12-LEAD Routine 04/06/2025 10:41 AM EDT Abnormal EKG BASIC METABOLIC PANEL Routine 01/20/2025 2:36 PM EST Hyperlipemia Impaired fasting glucose Screening for thyroid disorder Essential hypertension, malignant Abnormal blood chemistry LIPID PANEL WITH REFLEX TO DIRECT LDL Routine 01/20/2025 2:36 PM EST Hyperlipemia Impaired fasting glucose Screening for thyroid disorder Essential hypertension, malignant Abnormal blood chemistry from Last 3 Months or Most Recently Relevant to Health Maintenance Results * ECG 12 lead (04/06/2025 10:41 AM EDT) Ventricular Rate ECG 67 BPM GEMUSE Atrial Rate 67 BPM GEMUSE P-R Interval 168 ms GEMUSE QRS Duration 86 ms GEMUSE Q-T Interval 406 ms GEMUSE QTc 429 ms GEMUSE P Wave [place] 47 degrees GEMUSE R [place] 67 degrees GEMUSE T [place] 77 degrees GEMUSE ECG Interpretation Normal sinus rhythm Normal ECG Nonspecific T wave abnormality Confirmed by Michael PATTON JAY ([id number]) on 04/06/2025 11:15:36 AM GEMUSE 04/06/2025 10:4 1 AM EDT 04/06/2025 11:15 AM EDT us Carly Mills OPTO MECHANICAL ENGINEER ECG ORDERABLES Final Result Performing Organization Address City/[facility]/ZIP Co de Phone Number GEMUSE * (ABNORMAL) Lipid panel with reflex to direct LDL (01/20/2025 2:36 PM EST) Cholesterol 276(H) 0 - 200 mg/dL LAB CHEMISTRY METHOD 01/20/2025 9:53 PM [facility] Triglycerides 140 0 - 150 mg/dL LAB CHEMISTRY METHOD 01/20/2025 9:53 PM [facility] HDL 55 >=40 mg/dL LAB CHEMISTRY METHOD 01/20/2025 9:53 PM [facility] LDL Calculated 193(H) 0 - 100 mg/dL LAB CHEMISTRY METHOD 01/20/2025 9:53 PM [facility] VLDL Cholesterol [place] 28 mg/dL LAB CHEMISTRY METHOD 01/20/2025 9:53 PM [facility] Non HDL Chol. (LDL+VLDL) 221(H) <145 mg/dL LAB CHEMISTRY METHOD 01/20/2025 9:53 PM [facility] Chol/HDL Ratio 5.0(H) 0.0 - 4.4 LAB CHEMISTRY METHOD 01/20/2025 9:53 PM [facility] Blood Venous blood specimen / Unknown Venipuncture / Unknown 01/20/2025 2:36 PM EST 01/20/2025 2:36 PM EST us Charles Purcell DO LAB BLOOD ORDERABLES Final Re sult [facility] [address] [place] [address], * Basic metabolic panel (01/20/2025 2:36 PM EST) Sodium 135 133 - 145 mmol/L LAB CHEMISTRY METHOD 01/20/2025 9:53 PM EST [facility] Potassium 4.1 3.5 - 5.5 mmol/L LAB CHEMISTRY METHOD 01/20/2025 9:53 PM [facility] Chloride 102 96 - 110 mmol/L LAB CHEMISTRY METHOD 01/20/2025 9:53 PM [facility] CO2 28 21 - 32 mmol/L LAB CHEMISTRY METHOD 01/20/2025 9:53 PM [facility] Anion Gap 5 3 - 11 LAB CHEMISTRY METHOD 01/20/2025 9:53 PM [facility] Glucose 83 70 - 100 mg/dL LAB CHEMISTRY METHOD 01/20/2025 9:53 PM [facility] BUN 18 5 - 25 mg/dL LAB CHEMISTRY METHOD 01/20/2025 9:53 PM [facility] Creatinine 0.82 0.50 - 1.10 mg/dL LAB CHEMISTRY METHOD 01/20/2025 9:53 PM [facility] eGFR 85 >=60 mL/min/1. 73m2 LAB CHEMISTRY METHOD 01/20/2025 9:53 PM [facility] Comment:Calculation based on the Chronic Kidney Disease Epidemiology Collaboration (CKD-EPI) equation refit without adjustment for race. BUN/Creatinine Ratio 22.0 LAB CHEMISTRY METHOD 01/20/2025 9:53 PM [facility] Calcium 9.6 8.5 - 10.5 mg/dL LAB CHEMISTRY METHOD 01/20/2025 9:53 PM [facility] Blood Venous blood specimen / Unknown Venipuncture / Unknown 01/20/2025 2:36 PM EST 01/20/2025 2:36 PM EST Charles Purcell DO LAB BLOOD ORDERABLES Final Re sult [facility] [address] [place] [address], [place] [phone] from Last 3 Months or Most Recently Relevant to Health Maintenance Insurance [facility] [place] [address] Care Teams [employer]ator [employer] Relationship Specialty Start Date End Date Charles Purcell DO [address] [place] [phone] PCP - General Internal Medicine 02/28/13
== END ==
LOC: HO.SL 09:40
PROVIDERS: PCP Internal Medicine; Visit Provider Nurse Practitioner Family
DX: R40.0 Somnolence (principal); R06.83 Snoring
CPT/HCPCS: 95806

== ENCOUNTER → 2025-05-30 10:02 | Outpatient (BNV) | payer OTHER, SELFPAY | PROVIDERS: PCP Internal Medicine; Visit Provider Internal Medicine | DX: R06.83 Snoring (principal) | CPT/HCPCS: 95806 ==

== ENCOUNTER 2025-06-23 12:54 | Outpatient (AMB) | payer OTHER, SELFPAY ==
--- OUTSIDE RECORDS SUMMARY | 2025-06-23 12:57 | XMS_ITS | Clinical Summary ---
Author Organization [address] [place] [address] [place] [phone] Phone Care Team Providers Care Panel Wirer Name Role Phone Charles Purcell DO Primary Care Provider [phone] Allergies Active Allergy Reactions Criticality Noted Date [...] 1 packet topically if needed. 4 Active [id number] -HYAL-ANTIARTH3 ORAL Take by mouth. Activ e [...] 10:30 AM EDT Consult Orthopedic Surgery - [place] [address] [facility] [address] [place] [phone] Gautam Martinez DPM Pain in right foot (Primary Dx); Equinus contracture of right ankle; Lumbosacral radiculopathy 04/10/2025 8:50 AM EDT Office Visit Gastroenterology - [address] [facility] [address] [place] [phone] Ana Quinones NP Gastroesophageal reflux disease, unspecified whether esophagitis present (Primary Dx); JOHNSON (nonalcoholic steatohepatitis); Colon cancer screening 04/06/2025 10:40 AM EDT Office Visit [facility] [address] [facility] [address] [place] [phone] Carly Mills NP Hyperlipidemia, unspecified hyperlipidemia type (Primary Dx); Abnormal EKG; Nonrheumatic mitral valve regurgitation from Last 3 Months Surgical History Surgery Date Site/Laterality Comments UTERINE ARTERY EMBOLIZATION uterine suspension. SECTION, LOW TRANSVERSE RAD CERVICAL 5VW 14818 Left cervical radiculopathy, metal in place TONSILLECTOMY [...] Description 07/12/2025 10:30 AM EDT Ancillary Procedure [facility] [address] [facility] [address] [place] [address] Health Maintenance Due Date Last Done Comments Breast Cancer Screening 1969 DTaP,Tdap,and Td Vaccines (1 - Tdap) 1988 Hepatitis B Vaccines (1 of 3 - 19+ 3-dose series) 1988 Pneumococcal Vaccine: 50+ Years (1 of 2 - PCV) 1988 Cervical Cancer Screening: P ap Smear 1990 Zoster Vaccines (2 of 2) 04/11/2021 02/14/2021 Colorectal Cancer Screening: Colonoscopy 10/22/2022 HIV Screening 10/22/2022 Hepatitis C Screening 10/22/2022 Social Influencers of Health Screening 10/22/2022 COVID-19 Vaccine (1 - 2023-2 5 season) 2024 Depression Screening 11/23/2024 Influenza Vaccine (#1) 2025 0, 09/29/2019 Hypertension/CHF/CAD [...] GEMUSE QTc 429 ms GEMUSE P Wave [place] 47 degrees GEMUSE R [place] 67 degrees GEMUSE T [place] 77 degrees GEMUSE ECG Interpretation Normal sinus rhythm Normal ECG Nonspecific T wave abnormality Confirmed by Michael PATTON JAY ([id number]) on 04/06/2025 11:15:36 AM GEMUSE 04/06/2025 10:4 1 AM EDT 04/06/2025 11:15 AM EDT us Carly Mills TRAINING PERSONNEL SUPERVISOR ECG ORDERABLES Final Result Performing Organization Address City/[facility]/ZIP Co de Phone Number GEMUSE * (ABNORMAL) Lipid panel with reflex to direct LDL (01/20/2025 2:36 PM EST) Cholesterol 276(H) 0 - 200 mg/dL LAB CHEMISTRY METHOD 01/20/2025 9:53 PM [facility] Triglycerides 140 0 - 150 mg/dL LAB CHEMISTRY METHOD 01/20/2025 9:53 PM [facility] HDL 55 >=40 mg/dL LAB CHEMISTRY METHOD 01/20/2025 9:53 PM [facility] LDL Calculated 193(H) 0 - 100 mg/dL LAB CHEMISTRY METHOD 01/20/2025 9:53 PM [facility] VLDL Cholesterol [place] 28 mg/dL LAB CHEMISTRY METHOD 01/20/2025 9:53 PM [facility] Non HDL Chol. (LDL+VLDL) 221(H) <145 mg/dL LAB CHEMISTRY METHOD 01/20/2025 9:53 PM [facility] Chol/HDL Ratio 5.0(H) 0.0 - 4.4 LAB CHEMISTRY METHOD 01/20/2025 9:53 PM [facility] Blood Venous blood specimen / Unknown Venipuncture / Unknown 01/20/2025 2:36 PM EST 01/20/2025 2:36 PM EST us Charles Purcell DO LAB BLOOD ORDERABLES Final Re sult [facility] [address] [place] [address], * Basic metabolic panel (01/20/2025 2:36 PM EST) Sodium 135 133 - 145 mmol/L LAB CHEMISTRY METHOD 01/20/2025 9:53 PM EST [facility] Potassium 4.1 3.5 - 5.5 mmol/L LAB CHEMISTRY METHOD 01/20/2025 9:53 PM [facility] Chloride 102 96 - 110 mmol/L LAB CHEMISTRY METHOD 01/20/2025 9:53 PM [facility] CO2 28 21 - 32 mmol/L LAB CHEMISTRY METHOD 01/20/2025 9:53 PM [facility] Anion Gap 5 3 - 11 LAB CHEMISTRY METHOD 01/20/2025 9:53 PM [facility] Glucose 83 70 - 100 mg/dL LAB CHEMISTRY METHOD 01/20/2025 9:53 PM [facility] BUN 18 5 - 25 mg/dL LAB CHEMISTRY METHOD 01/20/2025 9:53 PM [facility] Creatinine 0.82 0.50 - 1.10 mg/dL LAB CHEMISTRY METHOD 01/20/2025 9:53 PM [facility] eGFR 85 >=60 mL/min/1. 73m2 LAB CHEMISTRY METHOD 01/20/2025 9:53 PM [facility] Comment:Calculation based on the Chronic Kidney Disease Epidemiology Collaboration (CKD-EPI) equation refit without adjustment for race. BUN/Creatinine Ratio 22.0 LAB CHEMISTRY METHOD 01/20/2025 9:53 PM [facility] Calcium 9.6 8.5 - 10.5 mg/dL LAB CHEMISTRY METHOD 01/20/2025 9:53 PM [facility] Blood Venous blood specimen / Unknown Venipuncture / Unknown 01/20/2025 2:36 PM EST 01/20/2025 2:36 PM EST Charles Purcell DO LAB BLOOD ORDERABLES Final Re sult [facility] [address] [place] [address], [place] [phone] from Last 3 Months or Most Recently Relevant to Health Maintenance Insurance [facility] [employer] Care Teams Panel Wirer Relationship Specialty Start Date End Date Charles Purcell DO [address] [place] [phone] PCP - General Internal Medicine 02/28/13
--- NOTE | 2025-06-23 13:00 | MHC.OFFVIS ---
Vital Signs 06/23/25 13:02 Height 5 ft 9 in Weight 218 lb 8 oz BMI 32.3 BP 112/80 Blood Pressure Location Rt brachial Position Sitting Pulse 64 Pulse Source Pulse Oximeter Pulse Oximetry (%) 96 Oxygen Delivery Method Room Air Intake Visit Reasons: Asthma Allergies methylphenidate Allergy (Intermediate, Verified 06/23/25 13:08) Migraine escitalopram (From Lexapro) Allergy (Mild, Verified 06/23/25 13:08) Irritable benzonatate Allergy (Unknown, Verified 06/23/25 13:08) Unknown carisoprodol (Soma) Allergy (Unknown, Verified 06/23/25 13:08) Unknown celecoxib (Celebrex) Allergy (Unknown, Verified 06/23/25 13:08) Unknown codeine Allergy (Unknown, Verified 06/23/25 13:08) Unknown hydroxyzine Allergy (Unknown, Verified 06/23/25 13:08) Unknown lamotrigine (Lamictal) Allergy (Unknown, Verified 06/23/25 13:08) Unknown milnacipran (Savella) Allergy (Unknown, Verified 06/23/25 13:08) Unknown naproxen (Naprosyn) Allergy (Unknown, Verified 06/23/25 13:08) Unknown prednisone Allergy (Unknown, Verified 06/23/25 13:08) Unknown pregabalin Allergy (Unknown, Verified 06/23/25 13:08) Unknown rizatriptan (Maxalt) Allergy (Unknown, Verified 06/23/25 13:08) Unknown Sulfa (Sulfonamide Antibiotics) Allergy (Unknown, Verified 06/23/25 13:08) Unknown sulfacetamide Allergy (Unknown, Verified 06/23/25 13:08) Unknown tetracycline Allergy (Unknown, Verified 06/23/25 13:08) Unknown tramadol Allergy (Unknown, Verified 06/23/25 13:08) Unknown amitriptyline Allergy (Verified 06/23/25 13:08) Unknown environmental allergies Allergy (Verified 06/23/25 13:08) Unknown ibuprofen Allergy (Verified 06/23/25 13:08) Unknown latex Allergy (Verified 06/23/25 13:08) Unknown lavender (Lavandula angustifolia) Allergy (Verified 06/23/25 13:08) Unknown NSAIDS (Non-Steroidal Anti-Inflamma Allergy (Verified 06/23/25 13:08) Unknown adhesives Allergy (Intermediate, Uncoded 06/23/25 13:08) itchy rash Erythromycin Allergy (Unknown, Uncoded 06/23/25 13:08) Unknown Wellbutrin Allergy (Unknown, Uncoded 06/23/25 13:08) Unknown HPI HPI Asthma: Details: Cinthya is a pleasant 54 year old female, former smoker with 20 pack year history, quit 15 years ago with underlying history of asthma. She continues to report suboptimal control on Breo 200 mcg noting dyspnea and intermittent wheezing as well as increased use of albuterol MDI. At the last visit she also reported symptoms suggestive of obstructive sleep apnea, previously on CPAP therapy many years ago and presents to review home sleep study results. She denies any visits to urgent care hospitalizations related to respiratory distress since last visit. [facility] Medical History Disorder of uterus Migraine Bruxism Spasmodic torticollis Vasovagal syncope Palpitations Arrhythmia Cervicalgia Tendinitis GERD (gastroesophageal reflux disease) TMJ dysfunction Scoliosis Plantar fasciitis Myofascial pain syndrome Fibromyalgia Surgical History Hx of neck surgery History of uterine suspension procedure History of section Hx of tonsillectomy Family History Father Stroke HTN (hypertension) Migraine Dementia Mother HTN (hypertension) DM (diabetes mellitus) Spina bifida Neuropathy H/O fibromyalgia TMJ (dislocation of temporomandibular joint) Paternal Uncle Stroke Paternal Aunt Stroke Paternal Grandfather Stroke Social History Household Members: Children Household Members Other:: adult Alcohol intake: current Alcohol intake frequency: does not drink Patient Tobacco Use Status: Former Tobacco user Tobacco use type: Cigarette Cigarette Packs Per Day: 1 Cigarettes Per Day: 20 Years Smoked: approx 20 Current occupational status: disabled Review of Systems Const Denies chills, Denies excessive sweating, Denies fever(s), Denies headache(s) and Denies night sweats Eyes Denies dry eyes, Denies irritation and Denies itchy eyes ENT Reports Normal hearing present, Denies headache(s), Denies nasal congestion, Denies nasal discharge, Denies post nasal drip and Denies sore throat Card Denies chest pain, Denies chest pain at rest, Denies chest pain with activity, Denies claudication, Denies leg edema, Reports dyspnea on exertion, Denies orthopnea and Denies paroxysmal nocturnal dyspnea Resp Denies chest congestion, Denies excessive phlegm production, Denies pain on inspiration, Denies pain with cough, Reports dyspnea on exertion, Denies stridor and Reports wheezing Musc Denies myalgias Neuro Reports Normal hearing present and Denies headache(s) Endo Denies excessive sweating Tushar/Lymph Denies lymphadenopathy Aller/Immun Denies itchy eyes, Denies seasonal rhinorrhea and Reports wheezing Physical Exam Vital Signs: Last Vital Signs Pulse 64 06/23/25 13:02 BP 112/80 06/23/25 13:02 Pulse Ox 96 06/23/25 13:02 Oxygen Delivery Method Room Air 06/23/25 13:02 BMI result Body Mass Index 32.3 Const General: cooperative, healthy appearing, comfortable, no acute distress, well developed and alert Nutritional Appearance: obese Orientation/consciousness: patient oriented x3 Limitations: no limitations HEENT Head: Yes normal to inspection, Yes normocephalic and Yes atraumatic Ears: hearing grossly normal bilaterally and external ears normal Eyes General: appearance normal, both eyes and all related structures Eyelids: Yes eyelids normal Sclerae: sclerae normal EOM: EOMs intact bilaterally Neck Neck: Yes normal visual inspection and Yes no lymphadenopathy Lymphatic: no lymphadenopathy noted Chest Chest palpation & inspection: normal inspection of the chest Resp Effort & Inspection: normal respiratory effort, able to speak in complete sentences, no audible wheezes, no cough, no stridor, not tachypneic, no tripod positioning and no use of accessory muscles Auscultation: clear to auscultation bilaterally Cardio Jugular venous distension: no JVD Rate: regular rate Rhythm: regular rhythm Skin Other: warm, dry General skin exam: no rashes or lesions noted Neuro General: patient oriented x3 Cranial nerves: Yes Normal hearing present Cognition (Neuro): normal cognition Gait exam (Neuro): Normal gait present Extrem General: Yes normal to inspection, Yes capillary refill normal, Yes no clubbing, cyanosis or edema and Yes no pedal edema Psych Appearance: grossly normal and well kempt Speech and movement: Normal speech and movement present and Clear speech present Affect: normal affect Attitude: cooperative Thought process: Normal thought process present Thought content: Normal thought content present Insight: Good insight present (Psych) Judgement: Good judgement present (Psych) Assessment & Plan Assessment & Plan (1) Asthma: Code(s): J45.909 - Unspecified asthma, uncomplicated Category: Medical (2) Personal history of tobacco use: Code(s): Z87.891 - Personal history of nicotine dependence Category: Social Hx (3) Daytime somnolence: Code(s): R40.0 - Somnolence Category: Medical Plan Cinthya continues to report suboptimal control on Breo 200 mcg, will switch to Trelegy. Reviewed home sleep study which revealed an AHI of 4.6, average oxygen saturation 92%, less than 88% for 5 minutes. Given that patient is symptomatic will send for in lab sleep study. She is requesting this to be performed through sleep medicine of [facility], will attempt to arrange. Prior chest CT from 2022 revealed granulomas, without suspicious lung nodules however given smoking history, will repeat chest CT. All questions were answered and patient is in agreement of plan. Will follow up in 8-10 weeks or sooner if needed. Orders: Orders CT chest wo IV con Today Z87.891 - Personal history of nicotine dependence RT PSG in-lab sleep study Today G47.34 - Idiopathic sleep related nonobstructive alveolar hypoventilation, R40.0 - Somnolence Medications: New fnrqntzdhey-zctusefnp-ulwhatvm 200-62.5-25 mcg (Trelegy Ellipta) 1 inh inhalation DAILY 60 ea 3RF Refilled ipratropium-albuterol 0.5 mg-3 mg(2.5 mg base)/3 mL 3 mL inhalation Q4-6H PRN 360 mL 6RF wheezing 30 days Coding Level of Care Code Est Pt Level 4 (50504) Diagnoses Asthma J45.909 Personal history of tobacco use Z87.891 Daytime somnolence R40.0
[2025-06-23 13:02] VITALS: BP 112/80; PULSE 64; O2SAT 96; BMI 32.3
== END 2025-06-23 13:42 | disposition home or self-care (01) ==
LOC: HO.HPSW 12:54
PROVIDERS: PCP Internal Medicine; Visit Provider Nurse Practitioner Family
DX: J45.909 Unspecified asthma, uncomplicated (principal); Z87.891 Personal history of nicotine dependence; R40.0 Somnolence
CPT/HCPCS: 99214

== ENCOUNTER → 2025-06-23 12:54 | Outpatient (BNVA) | payer OTHER, SELFPAY | PROVIDERS: PCP Internal Medicine; Visit Provider Nurse Practitioner Family | DX: R40.0 Somnolence (principal); J45.909 Unspecified asthma, uncomplicated; Z87.891 Personal history of nicotine dependence | CPT/HCPCS: 99212 ==

== ENCOUNTER 2025-08-18 09:40 | Outpatient (AMB) | payer OTHER, SELFPAY ==
--- NOTE | 2025-08-18 08:03 | A.OFFVIS_ITS ---
Intake Visit Reasons: Former Smoker Allergies methylphenidate Allergy (Intermediate, Verified 06/23/25 13:08) Migraine escitalopram (From Lexapro) Allergy (Mild, Verified 06/23/25 13:08) Irritable benzonatate Allergy (Unknown, Verified 06/23/25 13:08) Unknown carisoprodol (Soma) Allergy (Unknown, Verified 06/23/25 13:08) Unknown celecoxib (Celebrex) Allergy (Unknown, Verified 06/23/25 13:08) Unknown codeine Allergy (Unknown, Verified 06/23/25 13:08) Unknown hydroxyzine Allergy (Unknown, Verified 06/23/25 13:08) Unknown lamotrigine (Lamictal) Allergy (Unknown, Verified 06/23/25 13:08) Unknown milnacipran (Savella) Allergy (Unknown, Verified 06/23/25 13:08) Unknown naproxen (Naprosyn) Allergy (Unknown, Verified 06/23/25 13:08) Unknown prednisone Allergy (Unknown, Verified 06/23/25 13:08) Unknown pregabalin Allergy (Unknown, Verified 06/23/25 13:08) Unknown rizatriptan (Maxalt) Allergy (Unknown, Verified 06/23/25 13:08) Unknown Sulfa (Sulfonamide Antibiotics) Allergy (Unknown, Verified 06/23/25 13:08) Unknown sulfacetamide Allergy (Unknown, Verified 06/23/25 13:08) Unknown tetracycline Allergy (Unknown, Verified 06/23/25 13:08) Unknown tramadol Allergy (Unknown, Verified 06/23/25 13:08) Unknown amitriptyline Allergy (Verified 06/23/25 13:08) Unknown environmental allergies Allergy (Verified 06/23/25 13:08) Unknown ibuprofen Allergy (Verified 06/23/25 13:08) Unknown latex Allergy (Verified 06/23/25 13:08) Unknown lavender (Lavandula angustifolia) Allergy (Verified 06/23/25 13:08) Unknown NSAIDS (Non-Steroidal Anti-Inflamma Allergy (Verified 06/23/25 13:08) Unknown adhesives Allergy (Intermediate, Uncoded 06/23/25 13:08) itchy rash Erythromycin Allergy (Unknown, Uncoded 06/23/25 13:08) Unknown Wellbutrin Allergy (Unknown, Uncoded 06/23/25 13:08) Unknown HPI HPI Former Smoker: Details: Initial visit for this 54yo former smoker with a 20PYH. Patient started smoking at age 14 for 27 years at 3/4ppd. She quit in 2011. . Occasional marijuana use. Denies second hand smoke exposure. Denies exposure to chemicals or substances like asbestos. . Denies known family history of lung cancer. Personal history of skin cancer. SCC on check Denies chest CT in last year. Reports history of pneumonia that left scar tissue on right in past. . Denies recent travel outside the [place]. Denies recent respiratory illness or recent hospitalization for respiratory issues. Denies testing positive for COVID. Denies receiving COVID Vaccine. . Notes hoarness - feels one of her new inhalers is contributing. Has GERD. Denies fever, chills, new/worsening cough, hemoptysis or dysphagia. Denies significant chest pain, significant dyspnea or unintentional weight loss. Patient Lung Cancer Screening Questionnaire reviewed with patient by provider. . Shared Decision Making Completed. Patient meets criteria. Discussed in detail with patient, the risk vs benefit of LDCT screening. Patient consents to proceed with scan. Discussed and encouraged continued smoking cessation. [facility] Medical History (Updated 08/10/25 @ 14:03 by Farzaneh Esposito PA-C) Personal history of tobacco use Disorder of uterus Migraine Bruxism Spasmodic torticollis Vasovagal syncope Palpitations Arrhythmia Cervicalgia Tendinitis GERD (gastroesophageal reflux disease) TMJ dysfunction Scoliosis Plantar fasciitis Myofascial pain syndrome Fibromyalgia Surgical History (Updated 08/18/25 @ 10:06 by Farzaneh Esposito PA-C) History of squamous cell carcinoma excision History of cervical spinal surgery History of tonsillectomy History of uterine suspension procedure History of section Family History Father Stroke HTN (hypertension) Migraine Dementia Mother HTN (hypertension) DM (diabetes mellitus) Spina bifida Neuropathy H/O fibromyalgia TMJ (dislocation of temporomandibular joint) Paternal Uncle Stroke Paternal Aunt Stroke Paternal Grandfather Stroke Social History (Updated 08/18/25 @ 10:02 by Farzaneh Esposito PA-C) Household Members: Children Household Members Other:: adult Alcohol intake: current Alcohol intake frequency: does not drink Patient Tobacco Use Status: Former Tobacco user Tobacco use type: Cigarette Years Smoked: (onset 14yo, 3/4ppd x 27yrs, 20pyh - quit 2011) Current occupational status: disabled Assessment & Plan Assessment & Plan (1) Personal history of tobacco use: Comment: 20 pack year history, quit <15 years ago Code(s): Z87.891 - Personal history of nicotine dependence Category: Social Hx Plan: - SDM visit completed today in office. - Patient meets criteria for LDCT for lung cancer screening purposes and is asymptomatic. - Smoking cessation counseling offered. Patients can always call [phone]. - Will arrange for a LDCT scan of the chest for screening purposes at [facility]. - Risks, benefits, and alternatives were discussed in detail and the patient agrees to proceed. - Risks discussed include but are not limited to: radiation exposure, anxiety during testing and while awaiting results, false negatives, false positives and possibility of additional intervention such as further imaging or surgical procedures for benign disease. - Benefits are obviously detection of lung cancer at an early stage which can lead to improved outcomes. - Discussed the importance of screening program compliance with adherence to yearly LDCT scan as scheduled - or sooner interval scans for personalized screening regimen. - Discussed follow up plan. Our office will send a letter discussing results and if needed set up phone call and office visit based on CT findings. - Patient educated on results categorization and the management decisions for suspicious findings potentially found on the screening LDCT scan. Any patient with a Lung RADS score of 3 or 4 will be reviewed by a multidisciplinary team at [facility] to form a plan of action in regards to scan findings. - If further work up is warranted for a suspicious lung finding this will be followed by the Lung Cancer Screening program in conjunction with the Thoracic Surgery Department at [facility]. - A copy of the office note and LDCT will be sent to the patient's PCP - as well as documentation on any associated further plans of care. - Incidental findings on LDCT are the PCP's responsibility. These findings are indicated with an S finding on the LDCT Assessment. A note discussing the findings will be sent to the PCP who is then responsible for further management. - All questions answered.? Coding Level of Care Code Lung Cancer Screening G0296 Diagnoses Personal history of tobacco use Z87.891
--- OUTSIDE RECORDS SUMMARY | 2025-08-18 10:40 | XMS_ITS | Clinical Summary ---
Author Organization [address] [place] [address] [place] [phone] Phone Care Team Providers Care Truck Driver Teamster Name Role Phone Charles Purcell DO Primary Care Provider [phone] Allergies Active Allergy Reactions Criticality Noted Date [...] 1 packet topically if needed. 4 Active [id number] -HYAL-ANTIARTH3 ORAL Take by mouth. Activ e [...] a day with meals. 180 tablet 3 5 Active Active Problems Problem Noted Date Diagnosed [...] Encounters Date Type Department Care Team Description 07/13/2025 Telephone Orthopedic Surgery - [place] [address] [place] [address] Gautam Martinez DPM 07/12/2025 10:30 AM EDT Ancillary Procedure [facility] [address] [place] [address] Nonrheumatic mitral valve regurgitation from Last 3 Months Surgical History Surgery Date Site/Laterality Comments UTERINE ARTERY EMBOLIZATION uterine suspension. SECTION, LOW TRANSVERSE RAD CERVICAL [id number] Left cervical radiculopathy, metal in place TONSILLECTOMY [...] Sign Reading Time Taken Comments Blood Pressure 141/89 07/12/2025 2:31 PM EDT Pulse 67 04/06/2025 10:33 AM EDT Temperature 35.7 C (96.3 F) 12/22/2024 2:44 PM EST Respiratory Rate 15 12/22/2024 3:04 PM EST Oxygen Saturation 98% 04/06/2025 10:33 AM EDT Inhaled Oxygen Concentration - - Weight 102 kg (225 lb) 07/12/2025 2:31 PM EDT Height 175.3 cm (5' 9 ) 07/12/2025 2:31 PM EDT Body Mass Index 33.23 07/12/2025 2:31 PM EDT Plan of Treatment Upcoming Encounters Date Type Department Care Team (Late st Contact Info) Description 09/11/2025 10:15 AM EDT Office Visit General Surgery - [place] [address] [place] [address] Ryan Marr MD [address] [place] [phone] Health Maintenance Due Date Last Done Comments [...] 10/22/2022 Social Influencers of Health Screening 10/22/2022 Depression Screening 11/23/2024 COVID-19 Vaccine ( - 2023-2 5 season) 2025 Influenza Vaccine (#1) 2025 0, 09/29/2019 Hypertension/CHF/CAD Annual BMP Blood Test 07/26/2026 07/26/2025, 01/20/2025, 11/30/2024 Cholesterol Screening (Lipid Panel) 07/26/2030 07/26/2025, 01/20/2025, 01/10/2023 RSV Immunization Adult Patients (1 - 1-dose 75+ series) 2044 HIB Vaccines Aged Out No longer eligi [...] Diagnosis Comments CBC WITH AUTO DIFFERENTIAL Routine 07/26/2025 10:55 AM EDT HLD (hyperlipidemia) IGT (impaired glucose tolerance) Weight gain Anemia IRON AND TIBC Routine 07/26/2025 10:55 AM EDT HLD (hyperlipidemia) IGT (impaired glucose tolerance) Weight gain Anemia FERRITIN Routine 07/26/2025 10:55 AM EDT HLD (hyperlipidemia) IGT (impaired glucose tolerance) Weight gain Anemia RETICULOCYTE COUNT Routine 07/26/2025 10 :55 AM EDT HLD (hyperlipidemia) IGT (impaired glucose tolerance) Weight gain Anemia HEMOGLOBIN A1C Routine 07/26/2025 10:55 AM EDT HLD (hyperlipidemia) IGT (impaired glucose tolerance) Weight gain Anemia CBC AND DIFFERENTIAL Routine 07/26/2025 10:55 AM EDT HLD (hyperlipidemia) IGT (impaired glucose tolerance) Weight gain Anemia THYROID STIMULATING HORMONE Routine 07/26/2025 10:55 AM EDT HLD (hyperlipidemia) IGT (impaired glucose tolerance) Weight gain Anemia BASIC METABOLIC PANEL Routine 07/26/2025 10:55 AM EDT HLD (hyperlipidemia) IGT (impaired glucose tolerance) Weight gain Anemia CREATINE KINASE Routine 07/26/2025 10:55 AM EDT HLD (hyperlipidemia) IGT (impaired glucose tolerance) Weight gain Anemia ASPARTATE AMINOTRANSFERASE Routine 07/26/2025 10:55 AM EDT HLD (hyperlipidemia) IGT (impaired glucose tolerance) Weight gain Anemia ALANINE AMINOTRANSFERASE Routine 07/26/2025 10:55 AM EDT HLD (hyperlipidemia) IGT (impaired glucose tolerance) Weight gain Anemia LIPID PANEL WITH REFLEX TO DIRECT LDL Routine 07/26/2025 10:55 AM EDT Hyperlipidemia, unspecified hyperlipidemia type TRANSTHORACIC ECHOCARDIOGRAM (TTE) COMPLETE Routine 07/12/2025 11:10 AM EDT Nonrheumatic mitral valve regurgitation from Last 3 Months Results * Lipid panel with reflex to direct LDL (07/26/2025 10:55 AM EDT) Cholesterol 182 0 - 200 mg/dL LAB CHEMISTRY METHOD 07/26/2025 3:51 PM [facility] Triglycerides 132 0 - 150 mg/dL LAB CHEMISTRY METHOD 07/26/2025 3:51 PM [facility] HDL 64 >=40 mg/dL LAB CHEMISTRY METHOD 07/26/2025 3:51 PM [facility] LDL Calculated 92 0 - 100 mg/dL LAB CHEMISTRY METHOD 07/26/2025 3:51 PM [facility] Comment:Estimated LDL Calcul ated using equation: Total cholesterol - HDL cholesterol - (Triglycerides/5) VLDL Cholesterol Anderson 26.4 mg/dL LAB CHEMISTRY METHOD 07/26/2025 3:51 PM [facility] Non HDL Chol. (LDL+VLDL) 118 <145 mg/dL LAB CHEMISTRY METHOD 07/26/2025 3:51 PM [facility] Chol/HDL Ratio 2.8 0.0 - 4.4 LAB CHEMISTRY METHOD 07/26/2025 3:51 PM EDT [facility] Blood Venous blood specimen / Unknown Venipuncture / Unknown 07/26/2025 10:55 AM EDT 07/26/2025 10:55 AM EDT us [place] [employer] LAB BLOOD ORDERABLES Final Resu lt [facility] [address] [place] [address], * (ABNORMAL) CBC auto differential (07/26/2025 10:55 AM EDT) WBC 7.4 4.8 - 10.8 K/mcL LAB HEMETOLOGY METHOD 07/26/2025 2:50 PM EDT [facility] RBC 4.70 3.80 - 4.80 M/mcL LAB HEMETOLOGY METHOD 07/26/2025 2:50 PM EDT [facility] Hemoglobin 13.2 11.5 - 16.0 g/dL LAB HEMETOLOGY METHOD 07/26/2025 2:50 PM EDT [facility] Hematocrit 41.5 35.0 - 47.0 % LAB HEMETOLOGY METHOD 07/26/2025 2:50 PM EDT [facility] MCV 88.7 79.0 - 98.0 FL LAB HEMETOLOGY METHOD 07/26/2025 2:50 PM EDT [facility] MCH 28.2 27.0 - 32.0 pcg LAB HEMETOLOGY METHOD 07/26/2025 2:50 PM EDT [facility] MCHC 31.8(L) 32.0 - 37.0 g/dL LAB HEMETOLOGY METHOD 07/26/2025 2:50 PM EDT [facility] RDW 13.8 11.0 - 15.0 % LAB HEMETOLOGY METHOD 07/26/2025 2:50 PM EDT [facility] Platelets 318 130 - 400 K/mcL LAB HEMETOLOGY METHOD 07/26/2025 2:50 PM EDT [facility] MPV 10.2 7.0 - 11.0 FL LAB HEMETOLOGY METHOD 07/26/2025 2:50 PM EDT [facility] NRBC 0.0 <1.0 % LAB HEMETOLOGY METHOD 07/26/2025 2:50 PM EDT [facility] NRBC Absolute 0.00 <0.10 K/mcL LAB HEMETOLOGY METHOD 07/26/2025 2:50 PM EDT [facility] Neutrophils Relative 57.2 % LAB HEMETOLOGY METHOD 07/26/2025 2:50 PM EDT [facility] Lymphocytes Relative 29.9 % LAB HEMETOLOGY METHOD 07/26/2025 2:50 PM EDT [facility] Monocytes Relative 8.9 % LAB HEMETOLOGY METHOD 07/26/2025 2:50 PM EDT [facility] Eosinophils Relative 2.4 % LAB HEMETOLOGY METHOD 07/26/2025 2:50 PM EDT [facility] Basophils Relative 1.2 % LAB HEMETOLOGY METHOD 07/26/2025 2:50 PM T [facility] Immature Granulocytes Relative 0.4 % LAB HEMETOLOGY METHOD 07/26/2025 2:50 PM EDT [facility] Neutrophils Absolute 4.22 1.50 - 7.00 K/mcL LAB HEMETOLOGY METHOD 07/26/2025 2:50 PM EDT [facility] Lymphocytes Absolute 2.21 1.00 - 5.00 K/mcL LAB HEMETOLOGY METHOD 07/26/2025 2:50 PM EDT [facility] Monocytes Absolute 0.66 0.20 - 1.00 K/mcL LAB HEMETOLOGY METHOD 07/26/2025 2:50 PM EDT [facility] Eosinophils Absolute 0.18 0.00 - 0.50 K/mcL LAB HEMETOLOGY METHOD 07/26/2025 2:50 PM EDT [facility] Basophils Absolute 0.09 0.00 - 0.20 K/mcL LAB HEMETOLOGY METHOD 07/26/2025 2:50 PM EDT [facility] Immature Granulocytes Absolute 0.03 0.00 - 0.03 K/mcL LAB HEMETOLOGY METHOD 07/26/2025 2:50 PM EDT [facility] Blood Venous blood specimen / Unknown Venipuncture / Unknown 07/26/2025 10:55 AM EDT 07/26/2025 10:55 AM EDT [facility] LAB BLOOD ORDERABLES Final Re sult Performing Organization Address City/[facility]/ZIP Co de Phone Number [facility] [address] [place] [address], [place] [phone] * (ABNORMAL) Iron and TIBC (07/26/2025 10:55 AM EDT) Iron 45 40 - 150 mcg/dL LAB CHEMISTRY METHOD 07/26/2025 4:00 PM EDT [facility] TIBC 393 250 - 450 mcg/dL LAB CHEMISTRY METHOD 07/26/2025 4:00 PM EDT [facility] Iron Saturation 11(L) 15 - 50 % LAB CHEMISTRY METHOD 07/26/2025 4:00 PM EDT [facility] Blood Venous blood specimen / Unknown Venipuncture / Unknown 07/26/2025 10:55 AM EDT 07/26/2025 10:55 AM EDT [facility] LAB BLOOD ORDERABLES Final Re sult [facility] [address] [place] [address], [place] [phone] * Reticulocyte count (07/26/2025 10:55 AM EDT) Retic Ct Abs 0.070 0.030 - 0.090 M/mcL LAB HEMETOLOGY METHOD 07/26/2025 2:49 PM EDT [facility] Retic Ct Pct 1.4 0.7 - 1.7 % LAB HEMETOLOGY METHOD 07/26/2025 2:49 PM EDT [facility] Immature Retic Fract 9.7 2.3 - 15.9 % LAB HEMETOLOGY METHOD 07/26/2025 2:49 PM EDT [facility] Reticulocyte Hemoglobin 32.9 >29.0 pcg LAB HEMETOLOGY METHOD 07/26/2025 2:49 PM EDT [facility] Blood Venous blood specimen / Unknown Venipuncture / Unknown 07/26/2025 10:55 AM EDT 07/26/2025 10:55 AM EDT [facility] BLOOD ORDERABLES Final Re sult Performing Organization Address City/[facility]/ZIP Co de Phone Number [facility] [address] [place] [address], [place] [phone] * Alanine aminotransferase (07/26/2025 10:55 AM EDT) [facility] ALT (SGPT) 41 10 - 60 unit/L LAB CHEMISTRY METHOD 07/26/2025 3:51 PM EDT [facility] Blood Venous blood specimen / Unknown Venipuncture / Unknown 07/26/2025 10:55 AM EDT 07/26/2025 10:55 AM EDT [facility] LAB BLOOD ORDERABLES Final Re sult [facility] [address] [place] [address], [place] [phone] * Aspartate aminotransferase (07/26/2025 10:55 AM EDT) [facility] AST (SGOT) 25 10 - 42 unit/L LAB CHEMISTRY METHOD 07/26/2025 3:51 PM EDT [facility] Blood Venous blood specimen / Unknown Venipuncture / Unknown 07/26/2025 10:55 AM EDT 07/26/2025 10:55 AM EDT [facility] LAB BLOOD ORDERABLES Final Re sult Performing Organization Address [facility]/ZIP Co de Phone Number [facility] [address] [place] [address], [place] [phone] * Thyroid stimulating hormone (07/26/2025 10:55 AM EDT) [facility] TSH 3.41 0.40 - 4.00 mcIU/mL LAB CHEMISTRY METHOD 07/26/2025 5:08 PM EDT [facility] Blood Venous blood specimen / Unknown Venipuncture / Unknown 07/26/2025 10:55 AM EDT 07/26/2025 10:55 AM EDT [facility] LAB BLOOD ORDERABLES Final Re sult [facility] [address] [place] [address], [place] [phone] * Hemoglobin A1c (07/26/2025 10:55 AM EDT) [facility] Hemoglobin A1C 6.2 <6.5 % LAB CHEMISTRY METHOD 07/26/2025 8:31 PM EDT [facility] Mean Bld Glu Estim. 131 mg/dL LAB CHEMISTRY METHOD 07/26/2025 8:31 PM EDT [facility] Blood Venous blood specimen / Unknown Venipuncture / Unknown 07/26/2025 10:55 AM EDT 07/26/2025 10:55 AM EDT [email or web address] BLOOD ORDERABLES Final Re sult Performing Organization Address [facility]/ZIP Co de Phone Number [facility] [address] [place] [address], [place] [phone] * Ferritin (07/26/2025 10:55 AM EDT) Ferritin 66 8 - 252 ng/mL LAB CHEMISTRY METHOD 07/26/2025 3:51 PM EDT [facility] Blood Venous blood specimen / Unknown Venipuncture / Unknown 07/26/2025 10:55 AM EDT 07/26/2025 10:55 AM EDT [facility] [employer] LAB BLOOD ORDERABLES Final Re sult Performing Organization Address [facility]/ZIP Co de Phone Number [facility] [address] [place] [address], [place] [phone] * Creatine kinase (07/26/2025 10:55 AM EDT) Total CK 34 22 - 269 unit/L LAB CHEMISTRY METHOD 07/26/2025 3:51 PM EDT [facility] Blood Venous blood specimen / Unknown Venipuncture / Unknown 07/26/2025 10:55 AM EDT 07/26/2025 10:55 AM EDT [employer] DO LAB BLOOD ORDERABLES Final Re sult [facility] [address] [place] [address], [place] [phone] * Basic metabolic panel (07/26/2025 10:55 AM EDT) Sodium 137 133 - 145 mmol/L LAB CHEMISTRY METHOD 07/26/2025 3:51 PM [facility] Potassium 4.4 3.5 - 5.5 mmol/L LAB CHEMISTRY METHOD 07/26/2025 3:51 PM [facility] Chloride 105 96 - 110 mmol/L LAB CHEMISTRY METHOD 07/26/2025 3:51 PM [facility] CO2 29 21 - 32 mmol/L LAB CHEMISTRY METHOD 07/26/2025 3:51 PM [facility] Anion Gap 3 3 - 11 LAB CHEMISTRY METHOD 07/26/2025 3:51 PM [facility] Glucose 84 70 - 100 mg/dL LAB CHEMISTRY METHOD 07/26/2025 3:51 PM [facility] BUN 18 5 - 25 mg/dL LAB CHEMISTRY METHOD 07/26/2025 3:51 PM [facility] Creatinine 0.74 0.50 - 1.10 mg/dL LAB CHEMISTRY METHOD 07/26/2025 3:51 PM [facility] eGFR 96 >=60 mL/min/1. 73m2 LAB CHEMISTRY METHOD 07/26/2025 3:51 PM [facility] Comment:Calculation based on the Chronic Kidney Disease Epidemiology Collaboration (CKD-EPI) equation refit without adjustment for race. BUN/Creatinine Ratio 24.3 LAB CHEMISTRY METHOD 07/26/2025 3:51 PM [facility] Calcium 9.5 8.5 - 10.5 mg/dL LAB CHEMISTRY METHOD 07/26/2025 3:51 PM [facility] Blood Venous blood specimen / Unknown Venipuncture / Unknown 07/26/2025 10:55 AM EDT 07/26/2025 10:55 AM EDT Charles Purcell DO LAB BLOOD ORDERABLES Final Re sult [facility] [address] [place] [address], * (ABNORMAL) TRANSTHORACIC ECHOCARDIOGRAM (TTE) COMPLETE (07/12/2025 11:10 AM EDT) Left Atrium Minor Cruger 6.7 cm CV PACS Left Atrium Major Cruger 6.7 cm CV PACS LA Area Sys (A2C) 24 cm2 CV PACS LA Area Sys (A4C) 26 cm2 CV PACS LA Volume (BP) 79 mL CV PACS LA Size 5.3 cm CV PACS RA Area 19.0 cm2 CV PACS RA 2D Volume 51 mL CV PACS AV Mean Gradient 3 mmHg CV PACS AV Mean Gradient 3 mmHg CV PACS Ao VTI 32.1 cm CV PACS AV Peak Horace 1.3 m/s CV PACS AV Peak Horace 1.3 m/s CV PACS AV Peak Gradient 7 mmHg CV PACS AV Area Continuity Equation 2.0 cm2 CV PACS AV Area Peak Velocity 2.1 cm2 CV PACS Aortic Arch 2.8 cm CV PACS Ascending Aorta 3.3 cm CV PACS Aortic Sinus Valsalva 3.4 cm CV PACS IVC Proximal 2.5 cm CV PACS IVSD 1.2(A) 0.6 - 0.9 cm CV PACS LVIDD 5.5(A) 3.8 - 5.2 cm CV PACS LVIDS 3.8(A) 2.2 - 3.5 cm CV PACS LVOT Diameter 2.1 cm CV PACS LVOT Mean Horace 0.5 m/s CV PACS LVOT Mean Grad 1 mmHg CV PACS LVOT Mean Grad 1 mmHg CV PACS LVOT Peak VTI 18.2 cm CV PACS LVOT Peak Horace 0.8 m/s CV PACS LVOT Peak Gradient 2 mmHg CV PACS LVPWD 1.2(A) 0.6 - 0.9 cm CV PACS MV E' Tissue Velocity Lateral 9 cm/s CV PACS MV E' Tissue Velocity Septal 6 cm/s CV PACS LVOT Area 3.5 cm2 CV PACS LVOT Stroke Volume 63 mL CV PACS MV Deceleration Stark 4.4 m/s2 CV PACS E Wave Deceleration Time 194 119 - 242 ms CV PACS MV PHT 57 ms CV PACS MV Peak A Horace 0.71 m/s CV PACS MV Peak E Horace 0.85 m/s CV PACS MV Peak E Horace 0.85 m/s CV PACS MV Mean Gradient 1 mmHg CV PACS MV Mean Gradient 1 mmHg CV PACS MV Mean Gradient 1 mmHg CV PACS MV Mean Gradient 1 mmHg CV PACS MV VTI 30.4 cm CV PACS Mitral Valve Max Velocity 0.8 m/s CV PACS MV Peak Gradient 3 mmHg CV PACS MV Area PHT 3.9 cm2 CV PACS MV Area Continuity Equation 2.1 cm2 CV PACS PV Acceleration Time 102 ms CV PACS PV Acceleration Time 173 ms CV PACS PV Acceleration Time 138 ms CV PACS PV Mean Gradient 1 mmHg CV PACS PV VTI 11.8 cm CV PACS PV Peak Velocity 0.6 m/s CV PACS PV Peak Gradient 1 mmHg CV PACS RV Diastolic Basal Dimension 4.4(A) 2.5 - 4.1 cm CV PACS RV S' 8 cm/s CV PACS TAPSE 28 mm CV PACS TR Peak Velocity 2.02 m/s CV PACS TR Peak Gradient 16 mmHg CV PACS Relative Wall Thickness ratio 0.44 CV PACS LVOT:AV VTI Index 0.57 CV PACS FS 31 % CV PACS LV Mass 2D 272 g CV PACS MV VTI:LVOT VTI ratio 1.7 CV PACS LVOT flow 173 mL/s CV PACS BSA 2.23 m2 CV PACS LA Volume Index (BP) 36 mL/m2 CV PACS LVIDD Index 2.53 cm/m2 CV PACS LVIDS Index 1.75 cm/m2 CV PACS LV Mass Index 2D 126(A) 44 - 88 g/m2 CV PACS LVOT Stroke Index 29 mL/m2 CV PACS LA Dimension Index 2D 2.4 cm/m2 CV PACS RA 2D Volume Index 24 15 - 27 mL/m2 CV PACS TERRY Index (VTI) 0.90 cm2/m2 CV PACS TERRY Index (Pk Horace) 0.97 cm2/m2 CV PACS Ascending Aorta Index 1.52 cm/m2 CV PACS Right Ventricular Peak Systolic Pressure 24 mmHg CV PACS Est. RA Pressure 8 mmHg CV PACS Anatomical Region Laterality Modality Ultrasound Narrative 07/13/2025 7:00 AM EDT Left ventricle cavity is mildly dilated. There is mild concentric hypertrophy. Systolic function is normal with an ejection fraction of 55-60%. There are no regional LV wall motion abnormalities. No hemodynamically significant valvular dysfunction Compared to the prior study from 2023, there has been no significant change Left Ventricle Left ventricle cavity is mildly dilated. There is mild concentric hypertrophy. Systolic function is normal with an ejection fraction of 55-60%. There are no regional LV wall motion abnormalities. Right Ventricle Right ventricle cavity is dilated. Systolic function is normal. Left Atrium Left atrium cavity is mildly dilated. Right Atrium Right atrium cavity is normal. IVC/SVC Inferior vena cava structure is normal. RA pressures is estimated to be 8 mmHg (IVC diameter <21 mm and decreases <50% during inspiration). Mitral Valve The leaflets are mildly thickened. There is mild annular calcification. There is trace regurgitation. There is no evidence of mitral valve stenosis. Tricuspid Valve Tricuspid valve structure is normal. There is trace regurgitation. The right ventricular systolic pressure is normal. Aortic Valve The aortic valve is trileaflet. The leaflets are mildly thickened. There is no regurgitation or stenosis. Pulmonic Valve There is no pulmonic valve regurgitation. Ascending Aorta The aorta appears normal in size. Pericardium Pericardium appears normal. There is no pericardial effusion. Study Details Overall the study quality was adequate. [place] NP CV ECHO PROCEDURES Final Result from Last 3 Months Insurance [facility] [place] [address] Care Teams Truck Driver Teamster Relationship Specialty Start Date End Date Charles Purcell DO [address] [place] [phone] PCP - General Internal Medicine 02/28/13
== END 2025-08-18 10:29 | disposition home or self-care (01) ==
LOC: HO.HPS 09:40
PROVIDERS: PCP Internal Medicine; Referring Provider Nurse Practitioner Family; Visit Provider Physician Assistant Medical
DX: Z87.891 Personal history of nicotine dependence (principal)
CPT/HCPCS: G0296

== ENCOUNTER 2025-08-18 10:16 | Outpatient (REF) | payer OTHER, SELFPAY ==
--- NOTE | ~2025-08-18 | CT_ITS ---
EXAMINATION: CT LUNG SCREENING HISTORY: Z87.891 - Personal history of nicotine dependence TECHNIQUE: Low dose axial images were obtained from the sternal notch to upper abdomen without IV contrast per standard departmental protocol. Sagittal and coronal reformatted images were also obtained and reviewed. One or more of the following techniques was used for dose reduction: Automated exposure control, adjustment of the mA and/or kV according to patient size, use of iterative reconstruction technique. DLP: 68 mGy-cm COMPARISON: Comparison is made with the prior examination dated 07/16/2023. FINDINGS: Lung nodules: There is probable scarring at the junction of the right major and minor fissures (series 4, images 68-71). There is a 2 mm nodule in the right upper lobe (series 4, image 58) without change. There is a calcified granuloma in the left upper lobe (series 4, image 40), and an additional punctate nodule in the left lower lobe (series 4, image 60) without change. Emphysema: none Coronary Calcification: none Aortic Arch Calcification: none Potentially Significant Incidentals : none Additional Chest Findings: There is no pleural or pericardial effusion. No mediastinal or axillary lymphadenopathy is identified. Visualized upper abdomen: The visualized portions of the liver, spleen, and adrenals have an unremarkable unenhanced appearance. CT/CT lung screening IMPRESSION: No suspicious pulmonary nodules are identified. LUNG-RADS ASSESSMENT: Lung-RADS 2: Benign MANAGEMENT: Continue annual screening with LDCT in 12 months Category S: N/A Electronically signed by: Sushil Kolb MD 08/18/2025 11:01 AM EDT
== END 2025-08-18 10:17 | disposition home or self-care (01) ==
LOC: HO.CT 10:16
PROVIDERS: PCP Internal Medicine; Visit Provider Physician Assistant Medical
DX: Z12.2 Encounter for screening for malignant neoplasm of respiratory organs (principal); Z87.891 Personal history of nicotine dependence
CPT/HCPCS: 71271; G0296

== ENCOUNTER → 2025-08-18 10:18 | Outpatient (BNV) | payer OTHER, SELFPAY | PROVIDERS: PCP Internal Medicine; Visit Provider Radiology Diagnostic Radiology | DX: Z12.2 Encounter for screening for malignant neoplasm of respiratory organs (principal); Z87.891 Personal history of nicotine dependence | CPT/HCPCS: 71271 ==